=== PATIENT | male | born 1955 | race Caucasian/White ===

== ENCOUNTER → 2021-05-09 08:29 | Outpatient (BNVA) | payer MEDICARE, MEDICAID, SELFPAY | PROVIDERS: PCP Family Medicine; Visit Provider Nurse Practitioner Family | DX: G47.33 Obstructive sleep apnea (adult) (pediatric) (principal); F84.9 Pervasive developmental disorder, unspecified | CPT/HCPCS: Q3014 ==

== ENCOUNTER → 2021-10-03 20:58 | Outpatient (REF) | payer MEDICARE, MEDICAID, SELFPAY | LOC: HO.SL 20:58 | PROVIDERS: Visit Provider Nurse Practitioner Family | DX: G47.33 Obstructive sleep apnea (adult) (pediatric) (principal); F84.9 Pervasive developmental disorder, unspecified | CPT/HCPCS: 95811 ==

== ENCOUNTER → 2022-01-02 13:37 | Outpatient (BNVA) | payer MEDICARE, MEDICAID, SELFPAY | PROVIDERS: PCP Family Medicine; Visit Provider Nurse Practitioner Family | DX: G47.33 Obstructive sleep apnea (adult) (pediatric) (principal); Q03.1 Atresia of foramina of Magendie and Luschka; F84.9 Pervasive developmental disorder, unspecified; F09 Unspecified mental disorder due to known physiological condition | CPT/HCPCS: 99212 ==

== ENCOUNTER 2022-10-19 13:17 | Outpatient (AMB) | payer MEDICARE, MEDICAID, SELFPAY ==
--- NOTE | 2022-10-19 13:21 | MHC.OFFVIS ---
Intake Vital Signs 10/19/22 13:26 BP 100/80 Blood Pressure Location Rt brachial Position Sitting Intake Visit Reasons: 6m follow up - LVM Intake Note: Patient presents for 6 month follow up Patient states he saw Dr. ross to see if he was a candidate for surgery which they told him he's not Allergies No Known Allergies Allergy (Verified 10/19/22 13:24) HPI HPI Comments History of Present Illness Details 66-yr-old male presents for f/u visit, accompanied by his sister and nurse Elle. Pt denies any significant interval medical changes. Pt deneis any interval seizures, headaches, bothersome neck pain. Cognition stable- last brain MRI in 05/2021- stable dandy-walker variant, mild nonspecific T2/FLAIR white matter hyperintensities. He is working w/ his home PT and riding his stationary bike. He had sleep consult at [facility]- was informed he is not a candidate for [facility]. His CPAP settings were changed- ? to an APAP setting. Pt was given a new mask (which he used before, but is tolertaing better now that he shaved his mustache). He was advised to use a chin strap- which he started a few days ago. We are no longer connected to pt's Resmed airview and thus I cannot see full compliance report. Review of reeport provided by pt's nurse shows residual AHI 17/hr. He is using the machine more regularly. [facility] Medical History (Updated 10/19/22 @ 17:04 by ZOË Parsons) Cervical spinal stenosis CML (chronic myelocytic leukemia) Colon cancer Dandy Walker cyst Hearing loss Hyperlipidemia Intermittent explosive disorder Melanoma Myopia Polyneuropathy Seizure Severe obstructive sleep apnea Tension type headache Surgical History History of hydrocelectomy History of laparoscopic cholecystectomy Family History Father HTN (hypertension) Hyperlipidemia Mother Cancer Social History Alcohol intake: never Patient Tobacco Use Status: Never used Tobacco Review of Systems Const All systems reviewed & are unremarkable except as noted in HPI and below Physical Exam Vital Signs: Last Vital Signs BP 100/80 10/19/22 13:26 Const General: cooperative and no acute distress HEENT Head: Yes normocephalic Resp Effort & Inspection: normal respiratory effort and able to speak in complete sentences Neuro Other: A&O w/ cognitive impairment- pt answers appropriately, makes his needs/wishes known. Sitting upright in w/c. 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 Pt asks to continue care here. will recheck PAP compliance report in 2 weeks to check effect of current settings w/ mask and chin strap. If residual AHI still elevated- re-try BiPAP settings w/ mask and chin strap. Monitor cognition. Monitor seizures. Continue exercise program. Coding Level of Care Code Est Pt Level 3 (55204) Diagnoses Moderate obstructive sleep apnea G47.33 Seizure R56.9 Dandy Walker cyst Q03.1 Pervasive developmental disorder F84.9 Cognitive dysfunction F09
[2022-10-19 13:26] VITALS: BP 100/80
== END 2022-10-19 14:09 | disposition home or self-care (01) ==
PROVIDERS: Visit Provider Nurse Practitioner Family
DX: R56.9 Unspecified convulsions (principal); Q03.1 Atresia of foramina of Magendie and Luschka; F84.9 Pervasive developmental disorder, unspecified; R41.89 Other symptoms and signs involving cognitive functions and awareness; G47.33 Obstructive sleep apnea (adult) (pediatric)
CPT/HCPCS: 99213

== ENCOUNTER → 2022-10-19 13:17 | Outpatient (BNVA) | payer MEDICARE, MEDICAID, SELFPAY | PROVIDERS: Visit Provider Nurse Practitioner Family | DX: G47.33 Obstructive sleep apnea (adult) (pediatric) (principal); R56.9 Unspecified convulsions; F84.9 Pervasive developmental disorder, unspecified; F09 Unspecified mental disorder due to known physiological condition; Q03.1 Atresia of foramina of Magendie and Luschka | CPT/HCPCS: 99212 ==

== ENCOUNTER 2023-02-07 11:40 | Outpatient (AMB) | payer MEDICARE, MEDICAID, SELFPAY ==
--- NOTE | 2023-02-07 11:45 | MHC.OFFVIS ---
Intake Vital Signs 02/07/23 11:48 BP 108/70 Blood Pressure Location Rt brachial Position Sitting Pulse 77 Pulse Source Pulse Oximeter Pulse Oximetry (%) 100 Oxygen Delivery Method Room Air Intake Visit Reasons: 4m follow up- Confirmed Intake Note: Patient presents for 4 month follow up. Allergies No Known Allergies Allergy (Verified 02/07/23 11:48) HPI HPI Comments History of Present Illness Details 67-yr-old male presents for f/u visit, accompanied by his phaneuf hospital nurse, staff, and sister. Pt denies any significant interval medical changes. Pt reports he did have a fall in early Dec. He leaned over to pick something up from the floor causing him to fall off the toilet. He did hit his head so was brought to [facility] ER. Head and neck CT were non-acute per nurse. Pt was having some headcahes, and left forehead soreness, but states he is now feeling better. He states he is doing well overall. He is doing his exercises, working w/ PT. He is using his CPAP more regularly, however many nights he does not use it for > 4 hrs. Pt states that sometimes the mask leaks up into his eyes- although his staff is helping to ensure his mask seals correctly. Pt does admit that if he gets up to use the bathroom, he does not always let the staff help him put the CPAP back on. He is currently using the full face mask, but prefers the F30 style mask instead- he does have both. His machine is transmitting to his [employer] Airview kaylee- which shows residual AHI 14/hr. Unfortunately, his machine is not transmitting to our [employer] airview account. [facility] Medical History (Updated 10/19/22 @ 17:04 by ZOË Parsons) Severe obstructive sleep apnea Myopia Hearing loss Intermittent explosive disorder Colon cancer Hyperlipidemia Melanoma CML (chronic myelocytic leukemia) Dandy Walker cyst Tension type headache Cervical spinal stenosis Polyneuropathy Seizure Surgical History History of laparoscopic cholecystectomy History of hydrocelectomy Family History Father HTN (hypertension) Hyperlipidemia Mother Cancer Social History Alcohol intake: never Patient Tobacco Use Status: Never used Tobacco Review of Systems Const All systems reviewed & are unremarkable except as noted in HPI and below Physical Exam Vital Signs: Last Vital Signs Pulse 77 02/07/23 11:48 BP 108/70 02/07/23 11:48 Pulse Ox 100 02/07/23 11:48 Oxygen Delivery Method Room Air 02/07/23 11:48 Const General: cooperative and no acute distress Orientation/consciousness: patient oriented x3 Resp Effort & Inspection: normal respiratory effort and able to speak in complete sentences Neuro General: patient oriented x3 Psych Appearance: grossly normal Mental Status: mental status grossly normal Speech and movement: Normal speech and movement present Affect: normal affect Attitude: cooperative Assessment & Plan Assessment & Plan (1) Moderate obstructive sleep apnea: Comment: AHI 23/hr, REM AHI 48/hr, O2 jennifer 84% (in-lab PSG in 2018); AHI 62/hr and O2 jennifer 78% (in-lab split-night PSG 09/2021) Code(s): G47.33 - Obstructive sleep apnea (adult) (pediatric) (2) Seizure: Comment: (hypoxic brain injury, dandy walker cyst) Code(s): R56.9 - Unspecified convulsions (3) Pervasive developmental disorder: Code(s): F84.9 - Pervasive developmental disorder, unspecified Plan Will f/u w/ [facility] so that we can view pt's Resmed airview account. In the meantime, strategies advised to optimize PAP compliance: Use F30 mask Try a eye mask when using PAP When pt has to get up at night to use the BR, minimally disconnect his PAP tubing (and not the whole mask) to make it easier to reconnect the CPAP. Add Resmed Airview to pt's on tablet- may help motivate pt. May use Chin Strap. Will recheck PAP compliance report in 3 weeks to check compliance and residual AHI. If AHI is still elevated w/ improved compliance, consider retrying BiPAP settings (Auto BiPAP max IPAP 20, Min EPAP 5, pressure support 5) ? Monitor cognition. Monitor seizures. Continue exercise program. Coding Level of Care Code Est Pt Level 4 (07525) Diagnoses Moderate obstructive sleep apnea G47.33 Seizure R56.9 Pervasive developmental disorder F84.9
[2023-02-07 11:48] VITALS: BP 108/70; PULSE 77; O2SAT 100
== END 2023-02-07 12:39 | disposition home or self-care (01) ==
PROVIDERS: PCP Family Medicine; Visit Provider Nurse Practitioner Family
DX: G47.33 Obstructive sleep apnea (adult) (pediatric) (principal); R56.9 Unspecified convulsions; F84.9 Pervasive developmental disorder, unspecified
CPT/HCPCS: 99214

== ENCOUNTER → 2023-02-07 11:40 | Outpatient (BNVA) | payer MEDICARE, MEDICAID, SELFPAY | PROVIDERS: PCP Family Medicine; Visit Provider Nurse Practitioner Family | DX: G47.33 Obstructive sleep apnea (adult) (pediatric) (principal); R56.9 Unspecified convulsions; F84.9 Pervasive developmental disorder, unspecified | CPT/HCPCS: 99212 ==

== ENCOUNTER 2023-05-17 11:12 | Outpatient (AMB) | payer MEDICARE, MEDICAID, SELFPAY ==
--- NOTE | 2023-05-17 11:22 | MHC.OFFVIS ---
Intake Vital Signs 05/17/23 11:29 BP 108/72 Blood Pressure Location Rt brachial Position Sitting Pulse 80 Pulse Source Pulse Oximeter Pulse Oximetry (%) 98 Oxygen Delivery Method Room Air Intake Visit Reasons: 3 mo f/u-CONF Intake Note: Patient presents for 3 month follow up. Allergies No Known Allergies Allergy (Verified 05/17/23 11:28) HPI HPI Comments History of Present Illness Details 67-yr-old male presents for follow-up visit. Patient is accompanied by his long-term staff and sister. Pt denies any significant interval medical history changes. Patient continues to try to use his CPAP machine, however sometimes it is not very comfortable and he ends up taking it off before the end of the night. Staff is trying to help him to make sure that the mask is fitting correctly. His machine is still not connected to a [employer] air view account. However his sister is able to show me his residual AHI results on her phone, which do show significantly elevated AHI. Patient denies any interval seizure activity. Patient is overall doing well in his long-term. He is continuing to do some exercises with his physical therapist. [facility] Medical History (Updated 10/19/22 @ 17:04 by ZOË Parsons) Severe obstructive sleep apnea Myopia Hearing loss Intermittent explosive disorder Colon cancer Hyperlipidemia Melanoma CML (chronic myelocytic leukemia) Dandy Walker cyst Tension type headache Cervical spinal stenosis Polyneuropathy Seizure Surgical History History of laparoscopic cholecystectomy History of hydrocelectomy Family History Father HTN (hypertension) Hyperlipidemia Mother Cancer Social History Alcohol intake: never Patient Tobacco Use Status: Never used Tobacco Review of Systems Const All systems reviewed & are unremarkable except as noted in HPI and below Physical Exam Vital Signs: Last Vital Signs Pulse 80 05/17/23 11:29 BP 108/72 05/17/23 11:29 Pulse Ox 98 05/17/23 11:29 Oxygen Delivery Method Room Air 05/17/23 11:29 Const General: no acute distress HEENT Head: Yes normocephalic Resp Effort & Inspection: normal respiratory effort and able to speak in complete sentences Auscultation: clear to auscultation bilaterally Neuro Other: Alert and oriented with cognitive delay. Patient is able to follow the conversation and answer appropriately as long as questions are raised in the simple manner Sitting upright in wheelchair. 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 Will f/u w/ [facility] so that we can view pt's Resmed airview account. In the meantime, strategies advised to optimize PAP compliance: Use F30 mask Eye mask when using PAP When pt has to get up at night to use the BR, minimally disconnect his PAP tubing (and not the whole mask) to make it easier to reconnect the CPAP. May use Chin Strap. If AHI is still elevated w/ improved compliance, consider retrying BiPAP settings (Auto BiPAP max IPAP 20, Min EPAP 5, pressure support 5) ? Monitor cognition. Monitor seizures. Continue exercise program. Addendum: Patient's current CPAP machine appears to be connected to our records and ARB 0 count, however there is no recent data after November 2022. [facility], to determine why the machine is not currently transmitting data. If residual AHI remains elevated, we will switch to auto BiPAP as above. Coding Level of Care Code Est Pt Level 3 (25452) Diagnoses Moderate obstructive sleep apnea G47.33 Dandy Walker cyst Q03.1 Pervasive developmental disorder F84.9 Seizure R56.9
[2023-05-17 11:29] VITALS: BP 108/72; PULSE 80; O2SAT 98
== END 2023-05-17 12:24 | disposition home or self-care (01) ==
PROVIDERS: PCP Family Medicine; Visit Provider Nurse Practitioner Family
DX: G47.33 Obstructive sleep apnea (adult) (pediatric) (principal); Q03.1 Atresia of foramina of Magendie and Luschka; F84.9 Pervasive developmental disorder, unspecified; R56.9 Unspecified convulsions
CPT/HCPCS: 99213

== ENCOUNTER → 2023-05-17 11:12 | Outpatient (BNVA) | payer MEDICARE, MEDICAID, SELFPAY | PROVIDERS: PCP Family Medicine; Visit Provider Nurse Practitioner Family | DX: G47.33 Obstructive sleep apnea (adult) (pediatric) (principal); Q03.1 Atresia of foramina of Magendie and Luschka; F84.9 Pervasive developmental disorder, unspecified; R56.9 Unspecified convulsions; Z99.89 Dependence on other enabling machines and devices | CPT/HCPCS: 99212 ==

== ENCOUNTER 2023-11-19 09:15 | Outpatient (AMB) | payer MEDICARE, MEDICAID, SELFPAY ==
--- NOTE | 2023-11-19 09:28 | A.OFFVIS_ITS ---
Vital Signs 11/19/23 09:33 Weight 146 lb BP 114/74 Blood Pressure Location Rt brachial Position Sitting Pulse 82 Pulse Source Pulse Oximeter Pulse Oximetry (%) 100 Oxygen Delivery Method Room Air Intake Visit Reasons: Follow up Intake Note: Patient presents for follow up. Allergies No Known Allergies Allergy (Verified 11/19/23 09:34) HPI Comments Details: 67-yr-old male presents for follow-up visit. Patient is accompanied by his snf staff and sister. Pt denies any significant interval medical history changes. Since the last visit, I initaited an order for Auto BiPAP max IPAP 20, Min EPAP 5, pressure support 5, as he continued to have elevated residual AHI on APAP. Patient continues to use his PAP machine, however he still feels he is not tolerating the mask, the air is still leaking into his eyes. He would like to try a full face mask- possibly one that covers his whole face. Note- pt's [employer] Gill shows recent use but I cannot see what presusre setting pt is using. Our [employer] portal access does not show use since May. However, the serial numbers on my portal account and pt's Apps do match. Patient denies any interval seizure activity. Patient's states his mood is stable. Patient does sometimes get stuck when saying a word. Patient is overall doing well in his snf. He is continuing to do exercises with his physical therapist- using his cycle and tricycle and going to [employer] w/ his snf staff. [facility] Medical History (Updated 11/19/23 @ 12:49 by ZOË Parsons) Severe obstructive sleep apnea Moderate obstructive sleep apnea Myopia Hearing loss Intermittent explosive disorder Colon cancer Hyperlipidemia Melanoma CML (chronic myelocytic leukemia) Dandy Walker cyst Tension type headache Cervical spinal stenosis Polyneuropathy Seizure Surgical History History of laparoscopic cholecystectomy History of hydrocelectomy Family History Father HTN (hypertension) Hyperlipidemia Mother Cancer Social History Alcohol intake: never Patient Tobacco Use Status: Never used Tobacco Physical Exam Vital Signs: Last Vital Signs Pulse 82 11/19/23 09:33 BP 114/74 11/19/23 09:33 Pulse Ox 100 11/19/23 09:33 Oxygen Delivery Method Room Air 11/19/23 09:33 Const General: cooperative and no acute distress Resp Effort & Inspection: normal respiratory effort and able to speak in complete sentences Neuro Other: Alert and oriented with cognitive delay. Patient is able to follow the conversation and answer appropriately. Miold baseline dysarthria Sitting upright in wheelchair. 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 ? Will f/u w/ [facility] to ensure pt is currently using Auto BiPAP max IPAP 20, Min EPAP 5, pressure support 5 and reconnect current device to our [employer] account. Upon confirmation, consider decreasing IPAP setting in hopes this reduces risks for mask leakage. In the meantime, strategies advised to optimize PAP compliance: Continue to try to use F30 mask for now Eye mask when using PAP When pt has to get up at night to use the BR, minimally disconnect his PAP tubing (and not the whole mask) to make it easier to reconnect the CPAP. May use Chin Strap. Monitor cognition. Monitor seizures. Continue exercise program. Pt to follow-up in 6 months or sooner prn. ? Coding Level of Care Code Est Pt Level 4 (50057) Diagnoses Pervasive developmental disorder F84.9 Dandy Walker cyst Q03.1 Severe obstructive sleep apnea G47.33 Seizure R56.9
[2023-11-19 09:33] VITALS: BP 114/74; PULSE 82; O2SAT 100
== END 2023-11-19 10:25 | disposition home or self-care (01) ==
PROVIDERS: PCP Family Medicine; Visit Provider Nurse Practitioner Family
DX: F84.9 Pervasive developmental disorder, unspecified (principal); Q03.1 Atresia of foramina of Magendie and Luschka; G47.33 Obstructive sleep apnea (adult) (pediatric); R56.9 Unspecified convulsions
CPT/HCPCS: 99214

== ENCOUNTER → 2023-11-19 09:15 | Outpatient (BNVA) | payer MEDICARE, MEDICAID, SELFPAY | PROVIDERS: PCP Family Medicine; Visit Provider Nurse Practitioner Family | DX: F84.9 Pervasive developmental disorder, unspecified (principal); Q03.1 Atresia of foramina of Magendie and Luschka; R56.9 Unspecified convulsions; G47.33 Obstructive sleep apnea (adult) (pediatric) | CPT/HCPCS: 99212 ==

== ENCOUNTER 2024-05-26 09:05 | Outpatient (AMB) | payer MEDICARE, MEDICAID, SELFPAY ==
--- NOTE | 2024-05-26 09:11 | MHC.OFFVIS ---
Vital Signs 05/26/24 09:14 BP 108/72 Blood Pressure Location Rt brachial Position Sitting Pulse 82 Pulse Source Pulse Oximeter Pulse Oximetry (%) 99 Oxygen Delivery Method Room Air Intake Visit Reasons: Follow up + Seizure protocol Form Intake Note: Patient presents follow up GINA. No compliance(last compliance 12/18/23) Allergies No Known Allergies Allergy (Verified 05/26/24 09:13) HPI Comments Details: 68-yr-old male presents for follow-up visit. Patient is accompanied by his detention staff and sister. Pt denies any significant interval medical history changes. Since the last visit, I initiated an order for Auto BiPAP max IPAP 20, Min EPAP 5, pressure support 5, as he continued to have elevated residual AHI on APAP. [facility] has adjusted patient's ResMed you account to his auto BiPAP machine, however patient's personal ResMed Gill is attached to the CPAP machine. However, patient had not started using the auto BiPAP yet. Patient is continuing to have elevated residual AHIs and not tolerating his current PAP settings/mask well. Patient denies any interval seizure activity. Patient's states his mood is stable. Patient is overall doing well in his detention. He is continuing to do exercises with his physical therapist- using stationary bike or tricycle and going to [employer] w/ his detention staff. Patient's sister notes that there are other sister, was recently diagnosed with dementia. [facility] Medical History Severe obstructive sleep apnea Moderate obstructive sleep apnea Myopia Hearing loss Intermittent explosive disorder Colon cancer Hyperlipidemia Melanoma CML (chronic myelocytic leukemia) Dandy Walker cyst Tension type headache Cervical spinal stenosis Polyneuropathy Seizure Surgical History History of laparoscopic cholecystectomy History of hydrocelectomy Family History Father HTN (hypertension) Hyperlipidemia Mother Cancer Social History Alcohol intake: never Patient Tobacco Use Status: Never used Tobacco Physical Exam Vital Signs: Last Vital Signs Pulse 82 05/26/24 09:14 BP 108/72 05/26/24 09:14 Pulse Ox 99 05/26/24 09:14 Oxygen Delivery Method Room Air 05/26/24 09:14 Const General: cooperative and no acute distress Resp Effort & Inspection: normal respiratory effort and able to speak in complete sentences Neuro Other: Alert and oriented with cognitive delay. Patient is able to follow the conversation and answer appropriately. Mild baseline dysarthria Sitting upright in wheelchair. 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 ? Start Auto BiPAP max IPAP 20, Min EPAP 5, pressure support 5 and reconnect current device to our [employer] airview account. Upon confirmation, consider decreasing IPAP setting in hopes this reduces risks for mask leakage. During the visit today, staff adjusted the patient's personal [employer] air view Gill to the auto BiPAP machine In the meantime, strategies advised to optimize PAP compliance: Continue to try to use F30 mask for now Eye mask when using PAP When pt has to get up at night to use the BR, minimally disconnect his PAP tubing (and not the whole mask) to make it easier to reconnect the CPAP. May use Chin Strap. Monitor cognition. Monitor seizures. Continue exercise program. Pt to follow-up in 6 months or sooner prn. ? Coding Level of Care Code Est Pt Level 3 (83596) Diagnoses Pervasive developmental disorder F84.9 Dandy Walker cyst Q03.1 Severe obstructive sleep apnea G47.33 Seizure R56.9
[2024-05-26 09:14] VITALS: BP 108/72; PULSE 82; O2SAT 99
--- OUTSIDE RECORDS SUMMARY | 2024-05-26 09:55 | XMS_ITS | Data Portability ---
Author Organization [place] - [facility], Allergy Address [address] [address] Assessment Encounter Date Assessment Date Assessment LastModified by Organization Details LastModified Time 09/03/2023 09/03/2023 67 year old male presents today with his personal care attendant for cerumen removal. He has been having trouble with discomfort related to right sided hearing aid use. Impacted cerumen was debrided bilaterally today. His ear exam is otherwise normal. I see no cause for the ear discomfort with hearing aid use. Recommend trying hydorcortisone cream to the right outer ear to see if this helps with the irritation. Follow up in three months for his ear cleaning. [email or web address] Not available 09/03/2023 10:51:38 03/17/2024 03/17/2024 68 year old male presents from prison with one of the workers for routine ear cleaning. Ears were meticulously cleaned bilaterally today with fine pics and suction. Patient is encouraged to avoid Q-tips in his ears relative to packing the wax in tighter. He will follow up in 6 months for ear cleaning. [email or web address] Not available 03/17/2024 16:35:01 Plan of Treatment Reminders Order Date Submit Date Provider Last Modified By Organization Details Last Modified Time Details Appointments Establish ed 15 2024 10:15A M TANG PAREDES PA-C Not available Not available Not available Lab None recorded. Referral None recorded. Procedures None recorded. Surgeries None recorded. Imaging None recorded. Medication Orders hydrocort isone 1 % topical cream 2023 024 [facility], [address] [place] [address], [id number], 09/03/2023 10:50:38 Patient TargetsNo targets recorded. Patient InstructionsNo instructions recorded. Reason for Referral None Reported. Results Created Date Observation Date Name Description Value Unit Range Abnormal Flag Note LastModifiedBy Organization Detail LastModifiedTime 10/16/19 24 08/09/2021 imagi ng/di marbinos tic resul t No observ ation record ed. [email or web address] Not Available 03:31:52 10/16/19 24 08/09/2021 audio gram No observ ation record ed. [email or web address] Not Available 03:32:31 Result Notes None recorded. Problems Name Problem SNOMED Code Status Onset Date Resolution Date Notes Provider Name and Address Organization Details Recorded Time Posterior rhinorrhe a 39944496 Active 2016 Postnasal drip; Note: Date Diagnosed : 08/15/2016 10:40 AM (R09.82) Not Available [facility] 4 03:15:55 Mixed conductiv e and sensorine ural hearing loss, bilateral 848578401 Active 2021 Mixed conductiv e and sensorine ural hearing loss, bilateral ; Note: Date Diagnosed : 08/09/2021 8:56 AM (H90.6) Not Available [facility] 4 03:15:55 Sensorine ural hearing loss of bilateral ears 434680653 Active 2014 Sensorine ural hearing loss bilateral ly; CMS Risk: low risk CMS Treatment : establish ed problem (to examiner) : stable or improved Note: Date Diagnosed : 4 2:41 PM (389.18) ; Start Date : 4 Sensori neural hearing loss, bilateral ; Note: Date Diagnosed : 10/06/2014 12:40 PM (H90.3) [mapped from ICD9 code: 389.18] Not Available [facility] 4 03:15:54 Dizziness and giddiness 862758359 Active 2015 Dizziness and giddiness ; Note: Date Diagnosed : 6 4:36 PM (R42) Not Available [facility] 4 03:15:55 Impacted cerumen 26770646 Active 2014 Impacted cerumen; CMS Risk: low risk Cond ition: uncontrol led Note: Date Diagnosed : 4 2:41 PM (380.4) Impacte d cerumen; Location: bilateral CMS Risk: low risk Cond ition: uncontrol led Impa cted cerumen; Location: bilateral CMS Treatment : establish ed problem (to examiner) : stable or improved ; Start Date : 5 Impacte d cerumen; CMS Treatment : establish ed problem (to examiner) : stable or improved Note: Date Diagnosed : 4 2:41 PM (380.4) ; Start Date : 5 Impacte d cerumen; Location: bilateral CMS Risk: low risk CMS Treatment : establish ed problem (to examiner) : stable or improved ; Start Date : 4 Impacte d cerumen; CMS Risk: low risk CMS Treatment : establish ed problem (to examiner) : stable or improved Note: Date Diagnosed : 4 2:41 PM (380.4) ; Start Date : 4 Impacte d cerumen, unspecifi ed ear; Note: Date Diagnosed : 10/06/2014 12:40 PM (H61.20) [mapped from ICD9 code: 380.4] Not Available [facility] 4 03:15:54 Allergic rhinitis 25222811 Active 2016 Allergic rhinitis, unspecifi ed; Note: Date Diagnosed : 08/15/2016 10:40 AM (J30.9) Not Available [facility] 4 03:15:55 Impacted cerumen of bilateral ears 26228632150 93376 Active 2020 Impacted cerumen, bilateral ; Note: Date Diagnosed : 1 10:29 AM (H61.23) Impacte d cerumen, bilateral ; Note: Date Diagnosed : 07/06/2020 11:41 AM (H61.23) ; Start Date : 1 Impacte d cerumen, bilateral ; Note: Date Diagnosed : 0 11:17 AM (H61.23) ; Start Date : 0 Impacte d cerumen, bilateral ; Note: Date Diagnosed : 0 6:20 PM (H61.23) ; Start Date : 0 Impacte d cerumen, bilateral ; Note: Date Diagnosed : 11/09/2015 11:29 AM (H61.23) ; Start Date : 6 Not Available [facility] 4 03:15:54 Otalgia of right ear 4799595472 Active 2023 YADI ZIMMER PA-C [address] [facility] [address], [place], [address] , [facility] 4 10:49:52 Problem Notes None recorded. Procedures Surgical History Date Name Laterality Status Provider Name and Address Organization Details Recorded Time 5 Cerumen removal without microscope bilat completed TANG PAREDES PA-C [facility] [address], [place], [address], [facility] 03/17/2024 16:34:37 Imaging Results Imaging Date Name Status LastModified by [facility] Details LastModified Time 08/09/2021 imaging/diagno stic result completed [email or web address] Information not available 10/16/2023 03:31:52 08/09/2021 audiogram completed [email or web address] Information not available 10/16/2023 03:32:31 Procedure Notes None recorded. Medical Equipment None Reported. Medications Name Sig Start Date Stop Date Status Note LastModified by Organization Details LastModified Time melatonin 3 mg tabs active Not Available Not Available No t Available biotene mouthwash active Not Available Not Available No t Available vitamin d3 25 mcg (1000 ut) active Not Available Not Available No t Available multivita min tablet 2014 active Medicati on ID: [id number] Br and Name: multivit middleton Sen d Method: E-Prescr ibed Sub s Allowed: subs OK Medic ationGen ericName : multivit middleton Not Available Not Available Not Available amoxicill in 500 mg capsule active Not Available Not Available Not Available acetamino phen 325 mg tablet active Not Available Not Available No t Available Vitamin C 500 mg tablet 2013 active Medicati on ID: [id number] Du ration Value: 30 Brand Name: Vitamin C Send Method: E-Prescr ibed Sub s Allowed: subs OK Medic ationGen ericName : Vitamin C Not Available Not Available Not Available cetirizin e 10 mg tablet active Not Available Not Available Not Available oxybutyni n chloride ER 10 mg tablet,ex tended release 24 hr 08/09 completed Medicati on ID: [id number] Du ration Value: 30 Brand Name: oxybutyn in chloride Send Method: E-Prescr ibed Sub s Allowed: subs OK Medic ationGen ericName : oxybutyn in chloride Not Available Not Available Not Available Claritin 10 mg tablet 1 tablet by mouth 2016 active Medicati on ID: [id number] D uration Value: 30 Prescri bed By Name: Shiva Davenport M.D. Bra nd Name: Claritin Send Method: E-Prescr ibed Sub s Allowed: subs OK Medic ationGen ericName : Claritin Not Available Not Available Not Available sucralfat e 1 gram tablet active Not Available Not Available Not Available ondansetr on HCl 4 mg tablet active Not Available Not Available No t Available Milk of Magnesia 400 mg/5 mL oral suspensio n active Not Available Not Available Not Available bacitraci n zinc 500 unit/gram topical ointment active Not Available Not Available Not Available aspirin 81 mg tablet,de layed release 2013 [place] Medicati [place] ID: [id number] Du ration Value: 30 Brand Name: aspirin Send Method: E-Prescr ibed Sub s Allowed: subs OK Medic ationGen ericName : aspirin Not Available Not Available Not Available pantopraz ole 20 mg tablet,de layed release active Not Available Not Available Not Available Thera 400 mcg tablet active Not Available Not Available Not Available cefadroxi l 500 mg capsule active Not Available Not Available Not Available Vitamin D3 10 mcg (400 unit) tablet 02/07 completed Medicati on ID: [id number] Du ration Value: 30 Brand Name: Vitamin D3 Send Method: E-Prescr ibed Sub s Allowed: subs OK Medic ationGen ericName : Vitamin D3 Not Available Not Available Not Available hydrocort isone 1 % topical cream apply a small amount to right outer ear as needed for discomfo rt. do not use daily for longer than 2 weeks. active Not Available Not Available No t Available cephalexi n 500 mg capsule 10/06 [place] ID: [id number] Du ration Value: 10 Brand Name: cephalex in Send Method: E-Prescr ibed Sub s Allowed: subs OK Medic ationGen ericName : cephalex in Not Available Not Available Not Available oseltamiv ir 75 mg capsule TAKE 1 CAPSULE BY MOUTH DAILY FOR 7 DAYS active Not Available Not Available No t Available divalproe x ER 500 mg tablet,ex tended release 24 hr 10/06 completed Medicati [place] ID: [id number] Du ration Value: 30 Brand Name: divalpro ex Send Method: E-Prescr ibed Sub s Allowed: subs OK Medic ationGen ericName : divalpro ex Not Available Not Available Not Available omeprazol e 20 mg capsule,d elayed release 08/09 completed Medicati on ID: [id number] Du ration Value: 30 Brand Name: omeprazo le Send Method: E-Prescr ibed Sub s Allowed: subs OK Medic ationGen ericName : omeprazo le Not Available Not Available Not Available hydrocort isone 2.5 % topical cream active Not Available Not Available Not Available ketoconaz ole 2 % topical cream active Not Available Not Available Not Available fluoxetin e 20 mg capsule active Not Available Not Available Not Available fluticaso ne propionat e 50 mcg/actua tion nasal spray,dewayne pension active Not Available Not Available Not Available coenzyme Q10 30 mg capsule 08/09 completed Medicati on ID: 28323 Du ration Value: 30 Brand Name: coenzyme Q10 Send Method: E-Prescr ibed Sub s Allowed: subs OK Medic ationGen ericName : coenzyme Q10 Not Available Not Available Not Available Stomach Relief 262 mg/15 mL oral suspensio n active Not Available Not Available Not Available Depakote ER 250 mg tablet,ex tended release 08/09 completed Medicati on ID: [id number] Br and Name: Depakote ER Send Method: E-Prescr ibed Sub s Allowed: subs OK Medic ationGen ericName : Depakote ER Not Available Not Available Not Available imatinib 100 mg tablet active Not Available Not Available Not Available Gleevec 400 mg tablet 02/07 completed Medicati on ID: 89148 Du ration Value: 30 Brand Name: Gleevec Send Method: E-Prescr ibed Sub s Allowed: subs OK Medic ationGen ericName : Gleevec Not Available Not Available Not Available cholestyr amine (with sugar) 4 gram powder for susp in a packet active Not Available Not Available Not Available Biotene mouthwash 02/07 completed Medicati on ID: [id number] Du ration Value: 30 Brand Name: BIOTENE MOUTHWAS H Send Method: E-Prescr ibed Sub s Allowed: subs OK Medic ationGen ericName : BIOTENE MOUTHWAS H Not Available Not Available Not Available Fish Oil 340 mg-1,000 mg capsule 2013 active Medicati on ID: [id number] Du ration Value: 30 Brand Name: Fish Oil Send Method: E-Prescr ibed Sub s Allowed: subs OK Medic ationGen ericName : Fish Oil Not Available Not Available Not Available ferrous gluconate 324 mg (38 mg iron) tablet active Not Available Not Available Not Available Athlete's Foot (clotrima zole) 1 % topical cream active Not Available Not Available Not Available Biotene Oralbalan ce (bioactiv e enzymes) oral mucosal liquid 02/07 completed Medicati on ID: 52475 Du ration Value: 30 Brand Name: Biotene Oralbala nce Send Method: E-Prescr ibed Sub s Allowed: subs OK Medic ationGen ericName : Biotene Oralbala nce Not Available Not Available Not Available Fiber Therapy (methylce llulose-s ugar) 2 gram/19 gram oral powder active Not Available Not Available Not Available Adult Tussin Chest Congestio n 100 mg/5 mL oral liquid 07/06 completed Medicati on ID: 12243 Du ration Value: 3 Brand Name: Adult Tussin Chest Congesti on Send Method: E-Prescr ibed Sub s Allowed: subs OK Medic ationGen ericName : Adult Tussin Chest Congesti on Not Available Not Available Not Available Stimulant Laxative Plus 8.6 mg-50 mg tablet active Not Available Not Available Not Available Calcium Magnesium 500 mg calcium-2 50 mg tablet 2013 active Medicati on ID: 47243 Du ration Value: 30 Brand Name: Calcium Magnesiu m Send Method: E-Prescr ibed Sub s Allowed: subs OK Medic ationGen ericName : Calcium Magnesiu m Not Available Not Available Not Available Sodium Fluoride 5000 Plus 1.1 % dental cream active Not Available Not Available Not Available Profola 20 mg iron-1,67 0 mcg DFE tablet active Not Available Not Available Not Available Vitals Date Recorded Body height Body mass index (BMI) Body weight Provider Name and Address Organization Details Last Updated DateTime 09/03/2023 167.64 cm 23.2 kg/m2 84617.3 g Oanh Rinaldi [facility] 09/03/2023 10:21:53 Date Recorded Body height Body mass index (BMI) Body weight Provider Name and Address Organization Details Last Updated DateTime 03/17/2024 167.64 cm 23.2 kg/m2 48500.3 g Niesha Roque [facility] 03/17/2024 14:46:20 Social History None recorded. Functional Status None recorded. Mental Status None recorded. Family History Nothing Reported. Medical History No medical history recorded. Past Encounters Encounter ID Performer Location Encounter Start Date Encounter Closed Date Diagnosis/Indication Diagnosis SNOMED-CT Code Diagnosis ICD10 Code Diagnosis Note [id number] IZABELLA ZAMARRIPA MD [facility] [address] [place] [phone] 09/03/2023 10:06:43 09/03/2023 10:45:24 Impacted cerumen of bilateral ears 1808065079 251716 H61.23 Otalgia of right ear 688 5140076 H92.01 [id number] IZABELLA ZAMARRIPA MD [facility] [address] [place] [phone] 03/17/2024 14:44:38 03/17/2024 14:59:09 Impacted cerumen of bilateral ears 2700140960 467443 H61.23 Health Concerns Section Related Observation LastModified by Organization Detai ls LastModified Time None Recorded Concern Status LastModified by Organization Details LastModified Time None Recorded Advance Directives Directive None Recorded Payers Encounter Date Sequence Insurance Name Policy Number Policy Echeverria Covered Member ID Echeverria Member ID Guarantor Name 09/03/2023 1 [place]ARE [place] [facility] Wolfgang De La Cruzs [id number] Wolfgang Canobrants 09/03/2023 2 MEDICAID-[place] [facility] Wolfgang Mensahnts [id number] Wolfgang Mensahnts 03/17/2024 1 [place] [facility] Wolfgang Mensahnts [id number] Wolfgang Canobrants 03/17/2024 2 [place]ICAID[place] [facility] Wolfgang Mensahnts [id number] Wolfgang De La Cruzs Notes Date Note Type Note Provider Name and Address Organization Details Recorded Time 09/03/2023 text/html 67 year old male presents today with his personal care attendant for cerumen removal.He has been having trouble with discomfort related to right sided hearing aid use. He has been seen several times at [facility] and had many adjustments made with little improvement. IZABELLA ZAMARRIPA MD [address] [place] [address], [phone], [place] - [facility] 09/03/2023 13:50:32 03/17/2024 text/html 68 year old male presents from prison with one of the workers for routine ear cleaning. No acute concerns. IZABELLA ZAMARRIPA MD [address] [place] [address], [phone], [place] - [facility] 03/18/2024 10:17:20
== END 2024-05-26 10:04 | disposition home or self-care (01) ==
LOC: HO.HSMS 09:05
PROVIDERS: PCP Family Medicine; Visit Provider Nurse Practitioner Family
DX: F84.9 Pervasive developmental disorder, unspecified (principal); Q03.1 Atresia of foramina of Magendie and Luschka; G47.33 Obstructive sleep apnea (adult) (pediatric); R56.9 Unspecified convulsions
CPT/HCPCS: 99213

== ENCOUNTER → 2024-05-26 09:05 | Outpatient (BNVA) | payer MEDICARE, MEDICAID, SELFPAY | PROVIDERS: PCP Family Medicine; Visit Provider Nurse Practitioner Family | DX: Q03.1 Atresia of foramina of Magendie and Luschka (principal); F84.9 Pervasive developmental disorder, unspecified; G47.33 Obstructive sleep apnea (adult) (pediatric); R56.9 Unspecified convulsions | CPT/HCPCS: 99212 ==

== ENCOUNTER → 2024-07-21 20:30 | Outpatient (REF) | payer MEDICARE, MEDICAID, SELFPAY | LOC: HO.SL 20:30 | PROVIDERS: PCP Family Medicine; Visit Provider Nurse Practitioner Family | DX: G47.33 Obstructive sleep apnea (adult) (pediatric) (principal); F84.9 Pervasive developmental disorder, unspecified; G93.1 Anoxic brain damage, not elsewhere classified | CPT/HCPCS: 95811 ==

== ENCOUNTER → 2024-07-21 20:30 | Outpatient (BNV) | payer MEDICARE, MEDICAID, SELFPAY | PROVIDERS: PCP Family Medicine; Visit Provider Psychiatry & Neurology Neurology | DX: R06.83 Snoring (principal) | CPT/HCPCS: 95810 ==

== ENCOUNTER → 2024-07-28 13:12 | Outpatient (REF) | payer MEDICARE, MEDICAID, SELFPAY ==
--- OUTSIDE RECORDS SUMMARY | 2024-07-28 14:44 | XMS_ITS | Data Portability ---
Author Organization [facility], [facility] Address [address] [place] [address] Care Team Providers Care Cloth Colors Examiner Name Role Phone WILLIAM PEREZ Primary Care Provider TEN GARRETT [employer] Product Consultant Assessment Encounter Date Assessment Date Assessment LastModified by Organization Details LastModified Time 09/09/2023 09/09/2023 Peripheral vascular disease, dystrophic toenails jerskine Not available 09/09/2023 11:10:01 11/25/2023 11/25/2023 Peripheral vascular disease, dystrophic toenails jerskine Not available 11/25/2023 15:37:41 02/10/2024 02/10/2024 Peripheral vascular disease, dystrophic toenails jerskine Not available 02/10/2024 12:03:02 04/24/2024 04/24/2024 Peripheral vascular disease, dystrophic toenails jerskine Not available 04/24/2024 12:15:34 07/10/2024 07/10/2024 Peripheral vascular disease, dystrophic toenails jerskine Not available 07/10/2024 11:29:38 Plan of Treatment Reminders Order Date Submit Date Provider Last Modified By Organization Details Last Modified Time Details Appointments Routine Foot Care 2024 09:00A M Ten Garrett DPM Not available Not available Not available Colonosc opy, 15 2024 11:30A M Alex Manzano MD Not available Not available Not available Lab None recorded . Referral None recorded . Procedures None recorded . Surgeries None recorded . Imaging None recorded . Medication Orders None recorded . Patient TargetsNo targets recorded. Patient Instructions Encounter Date Encounter Id Patient Instructions Last Modified By Organization Details Last Modified Time 09/09/2023 [id number] Patient to retur n in 9 weeks for foot care to reduce risk of complications associated with peripheral vascular disease. jerskine Not available 09/09/2023 11:10:01 11/25/2023 [id number] Patient to retur n in 9 weeks for foot care to reduce risk of complications associated with peripheral vascular disease and peripheral neuropathy. jerskine Not available 11/25/2023 15:39:37 02/10/2024 [id number] Patient to retur n in 9 weeks for foot care to reduce risk of complications associated with peripheral vascular disease and peripheral neuropathy. jerskine Not available 02/10/2024 12:03:02 04/24/2024 [id number] Patient to retur n in 9 weeks for foot care to reduce risk of complications associated with peripheral vascular disease and peripheral neuropathy. jerskine Not available 04/24/2024 12:15:34 07/10/2024 [id number] Patient to retur n in 9 weeks for foot care to reduce risk of complications associated with peripheral vascular disease and peripheral neuropathy. jerskine Not available 07/10/2024 11:29:38 Reason for Referral None Reported. Problems Name Problem SNOMED Code Status Onset Date Resolution Date Notes Provider Name and Address Organization Details Recorded Time Primary malignant neoplasm of sigmoid colon 84157123 Active 009 Not Available [facility] 3 03:11:58 Injury of knee 151111773 Active 003 Not Available [facility] 3 03:11:58 Problem Notes None recorded. Procedures Surgical History Date Name Laterality Status Provider Name and Address Organization Details Recorded Time 04/07/2008 completed Not Available [facility] 01/11/2011 06:05:52 04/07/2008 completed Not Available [facility] 01/11/2011 06:05:52 Imaging Results None recorded. Procedure Notes None recorded. Medical Equipment None Reported. Allergies Allergen ID Allergen Name Allergen Category Reaction Reaction Severity Criticality Documentation Date Start Date Code Code System Note Provider Name and Address Organization Details Recorded Time 164788 Product containin g 5-hydroxy tryptamin e-3-automotive professional tor antagonis t (product) medicatio n Not available Not available Not available 06/08/2020 65308 7002 SNOMED Wendi Kolb [facility] [place] [facility] 12:30:46 Medications Name Sig Start Date Stop Date Status Note LastModified by Organization Details LastModified Time melatonin 3 mg tabs active Not Available Not Available No t Available biotene mouthwash active Not Available Not Available No t Available vitamin d3 25 mcg (1000 ut) active Not Available Not Available No t Available amoxicill in 500 mg capsule active Not Available Not Available Not Available cholestyr amine (bulk) powder 9 mg packet every evening 06/29 completed Not Available Not Available Not Available Tinactin 1 % topical aerosol active PRN daily Not Available Not Available Not Available acetamino phen 325 mg tablet active Not Available Not Available No t Available cetirizin e 10 mg tablet active Not Available Not Available Not Available sucralfat e 1 gram tablet Take 1 tablet twice a day by oral route. active Not Available Not Available No t Available ondansetr on HCl 4 mg tablet active Not Available Not Available No t Available Milk of Magnesia 400 mg/5 mL oral suspensio n Take 30 mL every day by oral route. active Not Available Not Available No t Available bacitraci n zinc 500 unit/gram topical ointment active Not Available Not Available Not Available pantopraz ole 20 mg tablet,de layed release Take 1 tablet every day by oral route. active Not Available Not Available No t Available Thera 400 mcg tablet active Not Available Not Available Not Available cefadroxi l 500 mg capsule 06/06 completed Not Available Not Available Not Available hydrocort isone 1 % topical cream active Not Available Not Available Not Available oseltamiv ir 75 mg capsule TAKE 1 CAPSULE BY MOUTH DAILY FOR 7 DAYS 04/24 completed Not Available Not Available Not Available fluoxetin e 20 mg tablet Take 1 tablet every day by oral route. 06/29 completed Not Available Not Available Not Available omeprazol e 20 mg capsule,d elayed release 06/06 completed Not Available Not Available Not Available hydrocort isone 2.5 % topical cream 11/24 completed Not Available Not Available Not Available bisacodyl 5 mg tablet,de layed release 06/06 completed Not Available Not Available Not Available polyethyl halle glycol 3350 17 gram/dose oral powder active Not Available Not Available Not Available ketoconaz ole 2 % topical cream active Not Available Not Available Not Available ondansetr on 4 mg disintegr ating tablet Place 1 tablet every 6 hours by translin gual route. 09/01 completed PRN Not Available Not Available Not Available fluoxetin e 20 mg capsule active Not Available Not Available Not Available fluticaso ne propionat e 50 mcg/actua tion nasal spray,dewayne pension Caroline 2 sprays every day by intranas al route. active Not Available Not Available No t Available loratadin e 10 mg tablet active Not Available Not Available Not Available Stomach Relief 262 mg/15 mL oral suspensio n active Not Available Not Available Not Available imatinib 100 mg tablet Take 2 tablets every day by oral route. active Not Available Not Available No t Available Tylenol 8 Hour 650 mg tablet,ex tended release Take 2 tablets every 4 hours by oral route. active PRN Not Available Not Available No t Available cholestyr amine (with sugar) 4 gram powder for susp in a packet active Not Available Not Available Not Available Prilosec OTC 20 mg tablet,de layed release Take 20 mg twice a day by oral route. 06/08 completed Changed to protonix Not Available Not Available Not Available Calcium/M agnesium Formula active Not Available Not Available Not Available Vitamin D3 1000 IU QD 09/01 completed Not Available Not Available Not Available Thera multivit middleton 1 tab daily 09/01 completed Not Available Not Available Not Available SF 5000 Plus once daily active brush on teeth Not Available Not Available Not Available imatinib 200 mg QD 09/01 completed Not Available Not Available Not Available bacitraci n (bulk) BID x 7 days 06/06 completed PRN Not Available Not Available Not Available Sennalax- S active PRN Not Available Not Available Not Available BAG BALM daily at bedtime active Not Available Not Available No t Available ferrous gluconate 324 mg (38 mg iron) tablet active Not Available Not Available Not Available Athlete's Foot (clotrima zole) 1 % topical cream APPLY TO THE AFFECTED AND SURROUND ING AREAS OF SKIN BY TOPICAL ROUTE 2 TIMES PER DAY IN THE MORNING AND EVENING active Not Available Not Available No t Available diclofena c 1 % topical gel APPLY 2 GRAMS TOPICALL Y TO RIGHT GREAT TOE 4 TIMES A DAY FOR ARTHRITI S PAIN (DIME SIZE AMOUNT) 2024 active Not Available Not Available Not Avai lable Tussin 100 mg/5 mL oral liquid Take 10 mL every 4 hours by oral route. active prn Not Available Not Available No t Available GaviLyte- G 236 gram-22.7 4 gram-6.74 gram-5.86 gram oral solution 06/06 completed Not Available Not Available Not Available loratadin e 10 mg capsule Take 10 mg every day by oral route. 09/01 completed Not Available Not Available Not Available ferrous gluconate 324 mg (37.5 mg iron) tablet Take 1 mg every 12 hours by oral route. 09/01 completed Not Available Not Available Not Available Fiber Therapy (methylce llulose-s ugar) 2 gram/19 gram oral powder active Not Available Not Available Not Available Stimulant Laxative Plus 8.6 mg-50 mg tablet active Not Available Not Available Not Available Probiotic Pearls Q 06/06 completed Not Available Not Available Not Available Citrucel QD active Not Available Not Avai lable Not Available Sodium Fluoride 5000 Plus 1.1 % dental cream active Not Available Not Available Not Available Fish Oil 1,200 mg (144 mg-216 mg) capsule twice a day active Not Available Not Available No t Available Profola 20 mg iron-1,67 0 mcg DFE tablet active Not Available Not Available Not Available Vitals Date Recorded Heart rate Systolic blood pressure Diastolic blood pressure Provider Name and Address Organization Details Last Updated DateTime 04/24/2024 76 /min 110 mm[Hg] 61 mm[Hg] [facility] 04/24/2024 12:06:32 Date Recorded Body weight Heart rate Systolic blood pressure Diastolic blood pressure Provider Name and Address Organization Details Last Updated DateTime 09/09/2023 16767.75 g 76 /min 98 mm[Hg] 60 mm[Hg] [facility] 09/09/2023 10:26:28 Date Recorded Heart rate Systolic blood pressure Diastolic blood pressure Provider Name and Address Organization Details Last Updated DateTime 11/25/2023 76 /min 82 mm[Hg] 47 mm[Hg] Wendi Kolb [facility] 11/25/2023 15:27:50 Date Recorded Heart rate Systolic blood pressure Diastolic blood pressure Provider Name and Address Organization Details Last Updated DateTime 02/10/2024 84 /min 102 mm[Hg] 64 mm[Hg] [facility] 02/10/2024 11:43:14 Social History Question Answer Notes LastModified by Organizat ion Details LastModified Time Tobacco Smoking Status Never Smoker Wendi Kolb [facility] 12/23/2019 10:00:52 What Was The Date Of Your Most Recent Tobacco Screening? 06/02/2021 Information not available 06/02/2021 Sex: Male Functional Status Question Answer Note LastModified by Organizat ion Details LastModified Time Do you or have you ever used smokeless tobacco? Never used smokeless tobacco Information not available 09/12/2020 Do you or have you ever used e-cigarettes or vape? Never used electronic cigarettes [email or web address] Information not available 09/12/2020 Mental Status None recorded. Family History Nothing Reported. Medical History No medical history recorded. Immunizations Vaccine Type Date Status Note Provider Nam e and Address Organization Details Recorded Time COVID-19, mRNA, LNP-S, PF, 30 mcg/0.3 mL dose 03/30/2020 completed Wendi Cortes cevallos [facility] 03/31/2021 10:14:04 COVID-19, mRNA, LNP-S, PF, 30 mcg/0.3 mL dose 04/20/2020 completed Wendi cevallos [facility] 03/31/2021 10:14:53 Past Encounters Encounter ID Performer Location Encounter Start Date Encounter Closed Date Diagnosis/Indication Diagnosis SNOMED-CT Code Diagnosis ICD10 Code Diagnosis Note [id number] Delmar Hernandez MD Radiology , [address] [address] 06/08/2002 16:37:06 03/17/2008 02:02:29 [id number] [facility], ISIAH STEARNS MD [facility], [address] [address] 04/07/2008 10:17:35 04/08/2008 07:30:02 [id number] Ten Garrett DPM Podiatry, [address] [address] 04/13/2019 10:17:55 04/13/2019 11:25:25 Pronation of foot 66711299 M21.6X9 Leg length inequality 45 683404 M21.70 [id number] Ten Garrett DPM Podiatry, [address] [address] 12/23/2019 09:55:09 12/23/2019 10:54:43 Onycholysis 72360469 L60.1 [id number] Ten Garrett DPM Podiatry, [address] [address] 06/08/2020 12:21:05 06/08/2020 13:15:17 Peripheral vascular disease 365165949 I73.9 Hypertrophy of nail 3065 4002 L60.2 [id number] Ten Garrett DPM Podiatry, [address] [address] 09/12/2020 09:41:16 09/12/2020 10:09:14 Peripheral vascular disease 142841173 I73.9 Hypertrophy of nail 3065 4002 L60.2 [id number] Isiah Stearns MD Podiatry, [address] [address] 01/27/2021 09:39:23 02/09/2021 15:41:55 Peripheral vascular disease 414922389 I73.9 Hypertrophy of nail 3065 4002 L60.2 [id number] Apryl Ramirez MD Podiatry, [address] [address] 03/31/2021 09:53:39 04/05/2021 14:06:53 Hammer toe 635848775 M20.40 [id number] Apryl Ramirez MD Podiatry, [address] [address] 06/02/2021 09:43:55 06/02/2021 10:34:55 Peripheral vascular disease 695583362 I73.9 Hypertrophy of nail 3065 4002 L60.2 [id number] Apryl Ramirez MD Podiatry, [address] [address] 09/01/2021 10:52:20 09/01/2021 14:14:13 Peripheral vascular disease 172241695 I73.9 Hypertrophy of nail 3065 4002 L60.2 [id number] Apryl Ramirez MD Podiatry, [address] [address] 01/12/2022 09:09:57 01/16/2022 08:45:04 Peripheral vascular disease 995654690 I73.9 Hypertrophy of nail 3065 4002 L60.2 [id number] Alex Manzano MD Endoscopy , [address] [address] 06/27/2022 10:24:39 06/27/2022 13:05:31 [id number] Apryl Ramirez MD Podiatry, [address] [address] 06/29/2022 11:03:13 07/02/2022 14:49:35 Peripheral vascular disease 386786243 I73.9 Hypertrophy of nail 3065 4002 L60.2 [id number] Apryl Ramirez MD Podiatry, [address] [address] 10/12/2022 10:21:10 10/15/2022 13:53:28 Peripheral vascular disease 039178165 I73.9 Hypertrophy of nail 3065 4002 L60.2 [id number] Apryl Ramirez MD Podiatry, [address] [address] 01/11/2023 10:54:24 01/11/2023 11:44:20 Peripheral vascular disease 555199499 I73.9 Hypertrophy of nail 3065 4002 L60.2 [id number] Apryl Ramirez MD Podiatry, [address] [address] 03/04/2023 14:06:04 03/04/2023 15:52:07 Onycholysis 96698836 L60.1 [id number] Apryl Ramirez MD Podiatry, [address] [address] 06/07/2023 11:45:10 06/12/2023 08:41:27 Peripheral vascular disease 376813933 I73.9 Hypertrophy of nail 3065 4002 L60.2 [id number] Apryl Ramirez MD Podiatry, [address] [address] 09/09/2023 09:52:55 09/17/2023 13:02:58 Peripheral vascular disease 400587367 I73.9 Hypertrophy of nail 3065 4002 L60.2 [id number] Apryl Rmairez MD Podiatry, [address] [address] 11/25/2023 15:11:14 11/26/2023 13:45:03 Peripheral vascular disease 547961231 I73.9 Idiopathic peripheral neuropathy 43410551 G60.3 Hypertrophy of nail 3065 4002 L60.2 [id number] Apryl Ramirez MD Podiatry, [address] [address] 02/10/2024 11:35:59 02/17/2024 09:46:23 Peripheral vascular disease 774407984 I73.9 Idiopathic peripheral neuropathy 06041885 G60.3 Hypertrophy of nail 3065 4002 L60.2 [id number] Apryl Ramirez MD Podiatry, [address] [address] 04/24/2024 11:58:46 04/24/2024 13:22:55 Peripheral vascular disease 263360133 I73.9 Idiopathic peripheral neuropathy 78076770 G60.3 Hypertrophy of nail 3065 4002 L60.2 [id number] Apryl Ramirez MD Podiatry, [address] [address] 07/10/2024 10:58:10 07/10/2024 14:10:47 Peripheral vascular disease 402399992 I73.9 Idiopathic peripheral neuropathy 20504817 G60.3 Hypertrophy of nail 3065 4002 L60.2 Health Concerns Section Related Observation LastModified by Organization Detai ls LastModified Time None Recorded Concern Status LastModified by Organization Details LastModified Time None Recorded Advance Directives Directive None Recorded Payers Encounter Date Sequence Insurance Name Policy Number Policy Echeverria Covered Member ID Echeverria Member ID Guarantor Name 09/09/2023 1 [place] [employer] Wolfgang Bright [id number] Wolfgang Bright 09/09/2023 2 [place] [facility] Wolfgang Bright [id number] Wolfgang Bright 11/25/2023 1 [place] [employer] Wolfgang Bright [id number] Wolfgang Amador Garrabrants 11/25/2023 2 [place] [facility] Wolfgang Amador Garrabrants [id number] Wolfgang Amador Garrabrants 02/10/2024 1 [place] [employer] Wolfgang Amador Garrabrants [id number] Wolfgang Perry Garrabrants 02/10/2024 2 [place] [facility] Wolfgang Amador Garrabrants [id number] 5 Wolfgang Amador Garrabrants 04/24/2024 1 [place] [employer] Wolfgang Amador Garrabrants [id number] Wolfgang W Garrabrants 04/24/2024 2 [place] [facility] Wolfgang Aamdor Garrabrants [id number] 5 Wolfgang Amador Garrabrants 07/10/2024 1 [place] [employer] Wolfgang Amador Garrabrants [id number] Wolfgang Perry Garrabrants 07/10/2024 2 [place] [facility] Wolfgang Amador Garrabrants [id number] 5 Wolfgang Amador Garrabrants Notes Date Note Type Note Provider Name and Address Organization Details Recorded Time 09/09/2023 text/html Patient with peripheral vascular disease presents to the office for evaluation and at risk foot care. Patient complains of thickened toenails that he cannot care for himself. Patient has no complaints of open wound or drainage. Patient seen by William Perez DO on 08/26/2023. Ten Garrett DPM [address] [place] [address], [address], [facility] 09/09/2023 11:11:09 11/25/2023 text/html Patient with peripheral vascular disease and peripheral neuropathy presents to the office for evaluation and at risk foot care. Patient complains of thickened toenails that he cannot care for himself. Patient has no complaints of open wound or drainage. Patient seen by William Perez DO on 08/26/2023. Ten Garrett DPM [address] [place], [address], [facility] 11/25/2023 15:40:11 02/10/2024 text/html Patient with peripheral vascular disease and peripheral neuropathy presents to the office for evaluation and at risk foot care. Patient complains of thickened toenails that he cannot care for himself. Patient has no complaints of open wound or drainage. Patient seen by William Perez DO on 12/10/2023. Ten Garrett DPM [address] [place], [address], [facility] 02/10/2024 12:04:07 04/24/2024 text/html Patient with peripheral vascular disease and peripheral neuropathy presents to the office for evaluation and at risk foot care. Patient complains of thickened toenails that he cannot care for himself. Patient has no complaints of open wound or drainage. Patient seen by William Perez DO on 03/19/2023. Ten Garrett DPM [address] [place], [address], [facility] 04/24/2024 12:16:44 07/10/2024 text/html Patient with peripheral vascular disease and peripheral neuropathy presents to the office for evaluation and at risk foot care. Patient complains of thickened toenails that he cannot care for himself. Patient has no complaints of open wound or drainage. Patient seen by William Perez DO on 06/01/2024. Ten Garrett DPM [address] [place], [address], [facility] 07/10/2024 11:30:35
== END ==
LOC: HO.CARD 13:12
PROVIDERS: Visit Provider Nurse Practitioner Family
DX: Z13.89 Encounter for screening for other disorder (principal)

== ENCOUNTER → 2024-08-12 09:10 | Outpatient (REF) | payer MEDICARE, MEDICAID, SELFPAY ==
--- NOTE | 2024-08-12 09:16 | CA_ITS ---
Transthoracic Echocardiogram Patient (Last, First, Middle): Wolfgang Bright, Gender: Male Date of : 1955 Age: 68 Procedure Date: 08/12/2024 Procedure Type: Transthoracic Echocardiogram Location: OP Height: 167.64 cm Weight: 65.32 kg BSA: 1.74 m2 Heart Rate: 80 bpm BP: 108 / 72 mmHg Journeyman Electrician: SB Referring MD: Alida CAMP Transporter Driver: Ross Betancourt MD Symptoms: G47.33 - Obstructive sleep apnea (adult) (pediatric) Study Quality: Fair ECG Rhythm: Sinus Conclusions: - 1. Normal LV ejection fraction of 60 65% with impaired relaxation filling pattern 2. Cardiac valvular Dopplers within normal limits 3. Upper limits of normal ascending aortic size 4. Trivial pericardial effusion Findings Left Ventricle Normal left ventricular size, thickness, and systolic function. The visually estimated ejection fraction is between 60-65%. Regional wall motion abnormalities can not be excluded due to suboptimal endocardial definition. Spectral Doppler is indicative of an impaired relaxation filling pattern. E/E prime ratio is between 8 and 15 consistent with indeterminate filling pressures. Right Ventricle Normal right ventricular cavity size and systolic function. Atria The left atrium is normal in size. Interatrial shunt cannot be excluded. The right atrium was not well visualized. Aortic Valve The aortic valve structure and function is likely normal. There is no aortic valve stenosis. There is no aortic valve regurgitation. Mitral Valve Normal mitral valve structure and function. There is trace mitral valve regurgitation. There is no mitral valve stenosis. Pulmonic Valve The pulmonic valve was not well visualized. Tricuspid Valve Likely normal tricuspid valve structure and function. Tricuspid regurgitation envelope is inadequate for calculation of right ventricular systolic pressure. Normal right atrial pressure. Great Vessels The pulmonary artery was not well visualized. There is no evidence of plaque in the aorta. Venous The inferior vena cava is normal in size and collapses greater than 50% with inspiration. Pericardium/Pleural There is a trivial loculated pericardial effusion overlying the left ventricle. Prior Study Comparison No prior study available for comparison. Measurements 2D Linear Measurements IVSd: 0.97 0.6-0.9/0.6-1.0 cm LVIDd: 4.77 3.9-5.3/4.2-5.9 cm LVIDd Index: 2.74 2.4-3.2/2.2-3.1 cm/m2 LVIDs: 3.14 2.0-3.6 cm LVPWd: 0.88 0.7-1.1 cm LA Diam: 3.20 2.7-3.8/3.0-4.0 cm LAIDs Index: 1.84 1.5-2.3 cm/m2 LV Mass: 189.53 67-162/88-224 g LV Mass Index: 108.93 43-95/49-115 g/m2 LVOT Diam: 2.10 3.0+(-)1.3 cm Mitral Valve MV Pk E: 0.68 MV PK A: 0.87 MV Decel Time: 176.00 E/A: 0.80 E'Lateral: 4.35 E'Medial: 5.98 E/E' Med: 11.30 E/E' Lat: 15.60 PHT: 52.00 MVA PHT: 4.23 Decel [place]: 3.85 Aortic Valve AoV Pk Andrea: 0.96 AoV Pk Grad: 4.00 CORINNE: 3.41 LVOT LVOT Pk Andrea: 0.95 LVOT Mn Andrea: 0.59 LVOT VTI: 0.19 LVOT Pk Grad: 4.00 LVOT Mn Grad: 2.00 LVOT Diam: 2.10 LVOT Area: 3.46 Diastolic Function MV Pk E: 0.68 MV Pk A: 0.87 E/A: 0.80 E'Medial: 5.98 E/E' Med: 11.30 E' Laterial: 4.35 E/E' Lat: 15.60 Right Ventricle TVS' Andrea: 14.70 Tricuspid Valve RA Press: 3.00 Great Vessels Aorta Sinus of Valsalva: 3.50 2.0-3.5 cm Ao Asc: 3.50 2.1-3.4 cm Pulmonary Veins Pulm Vein S/D 1.70 Pulmonary Valve PV Pk Andrea: 1.29 Peak PV Grad: 7.00 Updated in Other Vendor System with Status of Final Ross Betancourt MD electronically signed on 08/12/2024 11:11:23 AM with status of Final
--- OUTSIDE RECORDS SUMMARY | 2024-08-12 09:59 | XMS_ITS | Data Portability ---
Author Organization [place] Address [address] [place] [address] Care Team Providers Care Forestry And Wildlife Manager Name Role Phone BLOSSOM NOLAND Primary Care Provider TEN GARRETT Vascular Technician Assessment Encounter Date Assessment Date Assessment LastModified [...] By Organization Details Last Modified Time 09/09/2023 [id number] Patient to retur n in 9 weeks for foot care to reduce risk of complications associated with peripheral vascular disease. [email or web address] Not available 09/09/2023 11:10:01 11/25/2023 [id number] Patient to retur n in 9 weeks for foot care to reduce risk of complications associated with peripheral vascular disease and peripheral neuropathy. jerskine Not available 11/25/2023 15:39:37 02/10/2024 [id number] Patient to retur n in 9 weeks for foot care to reduce risk of complications associated with peripheral vascular disease and peripheral neuropathy. jerskine Not available 02/10/2024 12:03:02 04/24/2024 [id number] Patient to retur n in 9 weeks for foot care to reduce risk of complications associated with peripheral vascular disease and peripheral neuropathy. jerskine Not available 04/24/2024 12:15:34 07/10/2024 [id number] Patient to retur n in 9 weeks for foot care to reduce risk of complications associated with peripheral vascular disease and peripheral neuropathy. jerskine Not available 07/10/2024 11:29:38 Reason for Referral None Reported. Procedures Surgical History Date Name Laterality Status Provider Name and Address Organization Details Recorded Time 3 Tassoni - Colonoscopy completed Alex Manzano MD [address] [place] [address], [id number] [place] [address] 06/27/2022 12:17:31 Imaging Results None recorded. Procedure Notes None [...] e 50 mcg/actua tion nasal spray,dewayne pension [place] 2 sprays every day by intranas al [...] Available Not Available Not Available Probiotic Pearls QHS 06/06 completed Not Available Not Available Not [...] Not Available Not Available Not Available Vitals None Recorded Social History Question Answer Notes LastModified by Organizat ion Details LastModified Time What Was The Date Of Your Most Recent Tobacco Screening? 06/02/2021 [email or web address] Information not available 06/02/2021 Sex: Male Functional Status Question Answer Note LastModified by Organizat ion Details LastModified Time Do you or have you ever used smokeless tobacco? Never used smokeless tobacco [email or web address] Information not available 09/12/2020 Do you or have you ever used e-cigarettes or vape? Never used electronic cigarettes [email or web address] Information not available 09/12/2020 Mental Status None recorded. Family History Nothing Reported. Medical History No medical history recorded. Past Encounters Encounter ID Performer Location Encounter Start Date Encounter Closed Date Diagnosis/Indication Diagnosis SNOMED-CT Code Diagnosis ICD10 Code Diagnosis Note [id number] Delmar Hernandez MD Radiology , [address] [address] 06/08/2002 16:37:06 03/17/2008 02:02:29 [id number] [facility], ISIAH KNAPP MD ASP, [address] [address] 04/07/2008 10:17:35 04/08/2008 07:30:02 [id number] Ten Garrett DPM Podiatry, [address] [address] 04/13/2019 10:17:55 04/13/2019 11:25:25 [id number] Ten Garrett DPM Podiatry, [address] [address] 12/23/2019 09:55:09 12/23/2019 10:54:43 [id number] Ten Garrett DPM Podiatry, [address] [address] 06/08/2020 12:21:05 06/08/2020 13:15:17 [id number] Ten Garrett DPM Podiatry, [address] [place] [address] 09/12/2020 09:41:16 09/12/2020 10:09:14 [id number] Isiah Knapp MD Podiatry, [address] [place] [address] 01/27/2021 09:39:23 02/09/2021 15:41:55 [id number] Apryl Ramirez MD Podiatry, [address] [address] 03/31/2021 09:53:39 04/05/2021 14:06:53 [id number] Apryl Ramirez MD Podiatry, [address] [address] 06/02/2021 09:43:55 06/02/2021 10:34:55 [id number] Apryl Ramirez MD Podiatry, [address] [address] 09/01/2021 10:52:20 09/01/2021 14:14:13 [id number] Apryl Ramirez MD Podiatry, [address] [address] 01/12/2022 09:09:57 01/16/2022 08:45:04 [id number] Alex Manzano MD Endoscopy , [address] [address] 06/27/2022 10:24:39 06/27/2022 13:05:31 [id number] Apryl Ramirez MD Podiatry, [address] [address] 06/29/2022 11:03:13 07/02/2022 14:49:35 [id number] Apryl Ramirez MD Podiatry, [address] [address] 10/12/2022 10:21:10 10/15/2022 13:53:28 [id number] Apryl Ramirez MD Podiatry, [address] [address] 01/11/2023 10:54:24 01/11/2023 11:44:20 [id number] Apryl Ramirez MD Podiatry, [address] [address] 03/04/2023 14:06:04 03/04/2023 15:52:07 [id number] Apryl Ramirez MD Podiatry, [address] [address] 06/07/2023 11:45:10 06/12/2023 08:41:27 [id number] Apryl Ramirez MD Podiatry, [address] [address] 09/09/2023 09:52:55 09/17/2023 13:02:58 [id number] Apryl Ramirez MD Podiatry, [address] [address] 11/25/2023 15:11:14 11/26/2023 13:45:03 [id number] Apryl Ramirez MD Podiatry, [address] [address] 02/10/2024 11:35:59 02/17/2024 09:46:23 [id number] Apryl Ramirez MD Podiatry, [address] [address] 04/24/2024 11:58:46 04/24/2024 13:22:55 [id number] Apryl Ramirez MD Podiatry, [address] [address] 07/10/2024 10:58:10 07/10/2024 14:10:47 Health Concerns Section Related Observation LastModified by Organization Detai ls LastModified Time None Recorded Concern Status LastModified by Organization Details LastModified Time None Recorded Advance Directives Directive None Recorded Payers Insurance Date Sequence Insurance Name Policy Number Policy Echeverria Covered Member ID Echeverria Member ID Guarantor Name 07/14/2024 2 [place] [facility] Wolfgang Bright [id number] Wolfgang Bright 07/14/2024 1 [place] B[place] [employer] Wolfgang Bright [id number] Wolfgang Bright 07/14/2024 2 [place] [facility] ([facility]) Wolfgang Bright [id number] Wolfgang Bright 07/14/2024 2 [place] [facility] Wolfgang Bright [id number] Wolfgang Bright
== END ==
LOC: HO.CARD 09:10
PROVIDERS: Visit Provider Nurse Practitioner Family
DX: G47.33 Obstructive sleep apnea (adult) (pediatric) (principal); G93.1 Anoxic brain damage, not elsewhere classified; F84.9 Pervasive developmental disorder, unspecified; Q03.1 Atresia of foramina of Magendie and Luschka; R56.9 Unspecified convulsions
CPT/HCPCS: 93306

== ENCOUNTER → 2024-08-12 09:16 | Outpatient (BNV) | payer MEDICARE, MEDICAID, SELFPAY | PROVIDERS: Visit Provider Internal Medicine Cardiovascular Disease | DX: I31.39 Other pericardial effusion (noninflammatory) (principal); I51.89 Other ill-defined heart diseases | CPT/HCPCS: 93306 ==

== ENCOUNTER → 2024-09-23 19:30 | Outpatient (REF) | payer MEDICARE, MEDICAID, SELFPAY | LOC: HO.SL 19:30 | PROVIDERS: PCP Family Medicine; Visit Provider Nurse Practitioner Family | DX: G47.33 Obstructive sleep apnea (adult) (pediatric) (principal); G93.1 Anoxic brain damage, not elsewhere classified; F84.9 Pervasive developmental disorder, unspecified; Z99.89 Dependence on other enabling machines and devices | CPT/HCPCS: 95811 ==

== ENCOUNTER → 2024-09-23 21:06 | Outpatient (BNV) | payer MEDICARE, MEDICAID, SELFPAY | PROVIDERS: PCP Family Medicine; Visit Provider Psychiatry & Neurology Neurology | DX: G47.33 Obstructive sleep apnea (adult) (pediatric) (principal) | CPT/HCPCS: 95811 ==

== ENCOUNTER 2024-11-27 09:26 | Outpatient (AMB) | payer MEDICARE, MEDICAID, SELFPAY ==
--- OUTSIDE RECORDS SUMMARY | 2016-01-21 01:00 | XMS_ITS | Encounter Summary ---
Author Organization [facility] Address [address] [place] [address] Phone Care Team Providers Care Business Line Controller Name Role Phone William Perez DO Primary Care Provider [phone] Encounter Details Date Type Department Care Team (Late st Contact Info) Description 01/21/2016 Hospital Encounter [facility] General Imaging [address] [place] [address] Trace Hernandez MD 55 [facility] [phone] [place] [address] [email or web address] Social History Tobacco Use Types Packs/Day Years Used Date Smoking Tobacco: Never Smokeless Tobacco: Never Alcohol Use Standard Drinks/Week Comments Yes 0 (1 standard drink = 0.6 oz pur e alcohol) Rare Education Answer Date Recorded Are you interested in more education? Not on rae e 06/22/2022 Are you concerned about learning? Not on file 06/22/2022 No 06/22/2022 No 06/22/2022 Food Answer Date Recorded Within the past 6 months we worried whether our food would run out before we got money to buy more. Never True 2024 Within the past 6 months the food we bought just didn't last and we didn't have enough money to get more. Never True Residential Stability Answer Date Recor ded What is your housing situation today? I have omar sing 2024 How many times have you move d in the past 12 months? Zero (I did not move) 2024 Paying for Meds Answer Date Recorded Do you have trouble paying for medicines? No 2024 Paying Utility Bills Answer Date Record ed Do you have trouble paying your heating or elect ricity bill? No 2024 Transportation Answer Date Recorded Has the lack of transportati on kept you from medical appointments or from getting medications? No 2024 Digital Access Answer Date Recorded No 2024 Yes 2024 Do you have reliable internet access at home? Ye s 2024 Do you have a device (e.g., phone, tablet, computer) with a working camera? Yes 2024 Intimate Partner Violence Answer Date R ecorded Are you denied basic needs s uch as food, clothing, or medical care? No 2024 In the past 12 months have y ou been in a relationship with a person who hurts, threatens, or tries to control you? No 2024 Are you denied basic needs s uch as food, clothing, or medical care? No 2024 In the past 12 months have y ou been in a relationship with a person who hurts, threatens, or tries to control you? No 2024 Sex and Gender Information Value Date Recorded Sex Assigned at Male 03/04/2017 9:35 AM EST Legal Sex Male 3:55 PM EST Gender Identity Male 03/04/2017 9:35 AM EST Sexual Orientation Choose not to disclose 2017 9:35 AM EST documented as of this encounter Functional Status * Calculated C-SSRS Risk Score (Lifetime/Recent) Answer Date of Assessment Author No Risk Indicated 2024 6:43 PM Preeti Pereira RN * [place] Suicide Severity Rating Scale (Screener/Recent Self-Report) Question Answer Date of Assessment Author 1. Wish to be (Past 1 Month) No 2024 6:43 PM India Olvera RN 2. Non-Specific Active Suici pal Thoughts (Past 1 Month) No 2024 6:43 PM EDT Dino Madsen RN 6. Suicidal Behavior (Lifetime) No 6:43 PM EDT Preeti Madsen RN documented as of this encounter Plan of Treatment Upcoming Encounters Date Type Department Care Team (Late st Contact Info) Description 12/11/2024 10:00 AM EDT Office Visit [facility] [address] [place] [address] William Perez DO 234 [facility], [address] [place] [address] [email or web address] documented as of this encounter Procedures Procedure Name Priority Date/Time Associated Diagnosis Comments XR SPINE OUTSIDE (NO INTERPRETATION) Routine 01/21/2016 12:00 AM EST documented in this encounter Results * XR SPINE OUTSIDE(NO INTERPRETATION) (01/21/2016 12:00 AM EST) Narrative [facility]AC[facility] - 12/10/2016 12:36 PM EDT This study is for PACS storage only and not for interpretation. 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 05/30/2018 09/21/2022 1:23 AM EDT CoV-Exposed Comment:Recent close contact 03/07/2020 03/07/2020 03/21/2020 1:24 AM EST CoV-Risk 12/02/2020 12/02/2020 12/12/2020 1:22 AM EDT CoV-Risk 07/13/2021 07/13/2021 07/24/2021 1:22 AM EDT CoV-Presumed 07/26/2021 07/26/2021 08/16/2021 1:23 AM EDT documented as of this encounter Care Teams Business Line Controller Relationship Specialty Start Date End Date William Perez DO [address] [place] [address], [address] [place] [address] [email or web address] PCP - General 03/12/14 documented as of this encounter Additional Source Comments The information contained in this document represents components of the legal health record. It is not the complete legal health record.[facility]
--- OUTSIDE RECORDS SUMMARY | 2016-01-21 01:15 | XMS_ITS | Encounter Summary ---
Author Organization [facility] Address [address] [place] [address] Phone Care Team Providers Care Behavior Interventionist Name Role Phone William Perez DO Primary Care Provider Encounter Details Date Type Department Care Team ([facility] st Contact Info) Description 01/21/2016 12:15 AM EST Hospital Encounter [facility] Imaging 55 [place] [address] Trace Hernandez MD 55 [facility] [phone] [place] [address] [email or web address] Social History Tobacco Use Types Packs/Day [...] your housing situation today? I have omar jesus 2024 How many times have you move [...] 2024 6:43 PM Preeti Pereira RN * [place] Suicide Severity Rating Scale (Screener/Recent Self-Report) Question [...] Description 12/11/2024 10:00 AM EDT Office Visit [facility] [address] [place] [address] William Perez DO 234 [facility], [address] [place] [address] [email or web address] documented as of this encounter Procedures Procedure Name Priority Date/Time Associated Diagnosis Comments XR SPINE OUTSIDE (NO INTERPRETATION) Routine 01/21/2016 12:15 AM EST documented in this encounter Results * XR SPINE OUTSIDE(NO INTERPRETATION) (01/21/2016 12:15 AM EST) Narrative [facility] IMG INTERFACES - 12/10/2016 12:37 PM EDT This study is for PACS storage only and not for interpretation. us Trace Hernandez MD IMG OUTSIDE IMAGING W/OUT IN TERPRETATION Final Result [facility] IMG INTERFACES documented in this encounter Visit [...] documented as of this encounter Care Teams Behavior Interventionist Relationship Specialty Start Date End Date William Perez FDO [address] [place] [address], [address] [place] [address] [email or web address] PCP - General 03/12/14 documented as of this encounter Additional Source Comments The information contained in this document represents components of the legal health record. It is not the complete legal health record.[facility]
--- OUTSIDE RECORDS SUMMARY | 2016-01-21 01:30 | XMS_ITS | Encounter Summary ---
Author Organization [facility] Address [address] [place] [address] [place] [address] Phone Care Team Providers Care Aesthetics Instructor Name Role Phone William Perez DO Primary Care Provider [phone] Reason for Visit * MRI/CAT Scan - Closed Specialty Diagnoses / Procedures Referred By Sarai t Referred To Contact Procedures CT Head Outside (No Interpretation) Trace Hernandez MD [address] [place] [phone] [place] [address] Phone: tel: fax: mailto:[email or web address] Referral ID Status Reason Start Date Expiration Date Visits Re quested Visits Authorized [id number] Closed 12/10/2016 12/10/2017 1 1 Encounter Details Date Type Department Care Team ([facility] st Contact Info) Description 01/21/2016 12:30 AM EST Hospital En[facility] [address] [place] [address] Trace Hernandez MD [address] [place], [place] [phone] [place] [address] [email or web address] Social History Tobacco Use Types Packs/Day Years [...] Author No Risk Indicated 2024 6:43 PM EDT Preeti Nieto, MARY * [place] Suicide Severity Rating Scale (Screener/Recent Self-Report) Question Answer Date of Assessment Author 1. Wish to be (Past 1 Month) No 2024 6:43 PM EDT India Madsen RN 2. Non-Specific Active Suici pal Thoughts (Past 1 Month) No 2024 6:43 PM EDT Dino Madsen, MARY 6. Suicidal Behavior (Lifetime) No 6:43 PM EDT Pereti Madsen, MARY documented as of this encounter Plan of Treatment Upcoming Encounters Date Type Department Care Team (Late st Contact Info) Description 12/11/2024 10:00 AM EDT Office Visit [facility] [address] [place] [address] William Perez DO 234 [facility], [address] [place] [address] [email or web address] documented as of this encounter Procedures Procedure Name Priority Date/Time Associated Diagnosis Comments CT HEAD OUTSIDE (NO INTERPRETATION) Routine 01/21/2016 12:30 AM EST documented in this encounter Results * CT Head Outside (No Interpretation) (01/21/2016 12:30 AM EST) Narrative [facility] [place] [place] - 12/10/2016 12:37 PM EDT This study is for PACS storage only and not for interpretation. us Trace Hernandez MD IMG OUTSIDE IMAGING W/OUT IN TERPRETATION Final Result [facility] documented in this [...] documented as of this encounter Care Teams Aesthetics Instructor Relationship Specialty Start Date End Date William Perez DO [address] [place] [address], [address] [place] [address] [email or web address] PCP - General 03/12/14 documented as of this encounter Additional Source Comments The information contained in this document represents components of the legal health record. It is not the complete legal health record.[facility]
--- OUTSIDE RECORDS SUMMARY | 2016-01-21 01:45 | XMS_ITS | Encounter Summary ---
Author Organization [facility] Address [address] [place] [address] Phone Care Team Providers Care Sales Professional Bilingual Name Role Phone William Perez DO Primary Care Provider [phone] Encounter Details Date Type Department Care Team (Late st Contact Info) Description 01/21/2016 12:45 AM EST Hospital Encounter [facility] Imaging [address] [place] [address] Trace Hernandez MD 55 [facility] [phone] [place] [address] [email or web address] Social History Tobacco Use Types Packs/Day [...] 2024 6:43 PM Preeti Pereira RN * [place] Suicide Severity Rating Scale (Screener/Recent Self-Report) Question [...] Description 12/11/2024 10:00 AM EDT Office Visit [facility] [address] [place] [address] William Perez DO 234 [facility] [address] [place] [address] [email or web address] documented as of this encounter Procedures Procedure Name Priority Date/Time Associated Diagnosis Comments XR UPPER EXTREMITY OUTSIDE (NO INTERPRETATION) Routine 01/21/2016 12:45 AM EST documented in this encounter Results * XR Upper Extremity Outside (No Interpretation) (01/21/2016 12:45 AM EST) Narrative [facility] IMG INTERFACES - 12/10/2016 12:37 PM EDT This study is for PACS storage only and not for interpretation. us Trace Hernandez MD IMG OUTSIDE IMAGING W/OUT IN TERPRETATION Final Result [facility] IMG INTERFACES documented in this encounter Visit [...] documented as of this encounter Care Teams Sales Professional Bilingual Relationship Specialty Start Date End Date William Perez DO [address] [place] [address], [address] [place] [address] [email or web address] PCP - General 03/12/14 documented as of this encounter Additional Source Comments The information contained in this document represents components of the legal health record. It is not the complete legal health record.[facility]
--- OUTSIDE RECORDS SUMMARY | 2016-01-21 02:00 | XMS_ITS | Encounter Summary ---
Author Organization [facility] Address [address] [place] [address] Phone Care Team Providers Care Hogshead Filler Name Role Phone William Perez DO Primary Care Provider [phone] Encounter Details Date Type Department Care Team (Late st Contact Info) Description 01/21/2016 1:00 AM EST Hospital Encounter [facility] 55 [place] [address] Trace Hernandez MD 55 [facility] [phone] [place] [address] [email or web address] Social History Tobacco Use Types Packs/Day [...] 2024 6:43 PM Preeti Pereira RN * [place] Suicide Severity Rating Scale (Screener/Recent Self-Report) Question [...] 12/11/2024 10:00 AM EDT Office Visit [facility] [address] [place] [address] William Perez DO 234 [facility] [address] [place] [address] [email or web address] documented as of this encounter Procedures Procedure Name Priority Date/Time Associated Diagnosis Comments XR UPPER EXTREMITY OUTSIDE (NO INTERPRETATION) Routine 01/21/2016 1:00 AM EST documented in this encounter Results * XR Upper Extremity Outside (No Interpretation) (01/21/2016 1:00 AM EST) Narrative [facility] IMG INTERFACES - 12/10/2016 12:38 PM EDT This study is for PACS storage only and not for interpretation. us Trace Hernandez MD IMG OUTSIDE IMAGING W/OUT IN TERPRETATION Final Result [facility] IMG INTERFACES documented in this encounter Visit [...] documented as of this encounter Care Teams Hogshead Filler Relationship Specialty Start Date End Date William Perez DO [address] [place] [address], [address] [place] [address] [email or web address] PCP - General 03/12/14 documented as of this encounter Additional Source Comments The information contained in this document represents components of the legal health record. It is not the complete legal health record.[facility]
--- OUTSIDE RECORDS SUMMARY | 2016-01-21 02:15 | XMS_ITS | Encounter Summary ---
Author Organization [facility] Address [address] [place] [address] [place] [address] Phone Care Team Providers Care Pathology Laboratory Director Name Role Phone William Perez DO Primary Care Provider [phone] Reason for Visit * MRI/CAT Scan - Closed Specialty Diagnoses / Procedures Referred By Sarai t Referred To Contact Procedures CT Head Outside (No Interpretation) Trace Hernandez MD [address] [place] [phone] [place] [address] Phone: tel: fax: mailto:[email or web address] Referral ID Status Reason Start Date Expiration Date Visits Re quested Visits Authorized [id number] Closed 12/10/2016 12/10/2017 1 1 Encounter Details Date Type Department Care Team ([facility] st Contact Info) Description 01/21/2016 1:15 AM EST Hospital Encounter [facility] [address] [place] [address] Trace Hernandez MD [address] [place], [place] [phone] [place] [address] [email or web address] Social History Tobacco Use Types Packs/Day [...] 6:43 PM EDT Preeti Nieto, MARY * [place] Suicide Severity Rating Scale (Screener/Recent Self-Report) Question Answer Date of Assessment Author 1. Wish to be (Past 1 Month) No 2024 6:43 PM EDT India Madsen RN 2. Non-Specific Active Suici pal Thoughts (Past 1 Month) No 2024 6:43 PM EDT Dino Madsen, MARY 6. Suicidal Behavior (Lifetime) No 6:43 PM EDT Preeti Madsen, MARY documented as of this encounter Plan of Treatment Upcoming Encounters Date Type Department Care Team (Late st Contact Info) Description 12/11/2024 10:00 AM EDT Office Visit [facility] [address] [place] [address] William Perez DO 234 [facility], [address] [place] [address] [email or web address] documented as of this encounter Procedures Procedure Name Priority Date/Time Associated Diagnosis Comments CT HEAD OUTSIDE (NO INTERPRETATION) Routine 01/21/2016 1:15 AM EST documented in this encounter Results * CT Head Outside (No Interpretation) (01/21/2016 1:15 AM EST) Narrative [facility] - 12/10/2016 12:38 PM EDT This study is for PACS storage only and not for interpretation. us Trace Hernandez MD IMG OUTSIDE IMAGING W/OUT IN TERPRETATION Final Result [facility] documented in this encounter Visit [...] documented as of this encounter Care Teams Pathology Laboratory Director Relationship Specialty Start Date End Date William Perez DO [address] [place] [address], [address] [place] [address] [email or web address] PCP - General 03/12/14 documented as of this encounter Additional Source Comments The information contained in this document represents components of the legal health record. It is not the complete legal health record.[facility]
--- OUTSIDE RECORDS SUMMARY | 2016-01-21 02:30 | XMS_ITS | Encounter Summary ---
Author Organization [facility] Address [address] [place] [address] [place] [address] Phone Care Team Providers Care Accounts Payable Supervisor Name Role Phone William Perez DO Primary Care Provider Reason for Visit * MRI/CAT Scan - Closed Specialty Diagnoses / Procedures Referred By Sarai t Referred To Contact Procedures CT Head Outside (No Interpretation) Trace Hernandez MD [address] [place] [phone] [place] [address] Phone: tel: fax: mailto:[email or web address] Referral ID Status Reason Start Date Expiration Date Visits Re quested Visits Authorized [id number] Closed 12/10/2016 12/10/2017 1 1 Encounter Details Date Type Department Care Team ([facility] st Contact Info) Description 01/21/2016 1:30 AM EST Hospital Encounter [facility] [address] [place] [address] Trace Hernandez MD [address] [place], [place] [phone] [place] [address] [email or web address] Social History Tobacco Use Types Packs/Day [...] 6:43 PM EDT Preeti Nieto, MARY * [place] Suicide Severity Rating Scale (Screener/Recent Self-Report) Question [...] Description 12/11/2024 10:00 AM EDT Office Visit [facility] [address] [place] [address] William Perez DO 234 [facility], [address] [place] [address] [email or web address] documented as of this encounter Procedures Procedure Name Priority Date/Time Associated Diagnosis Comments CT HEAD OUTSIDE (NO INTERPRETATION) Routine 01/21/2016 1:30 AM EST documented in this encounter Results * CT Head Outside (No Interpretation) (01/21/2016 1:30 AM EST) Narrative [facility] - 12/10/2016 12:38 PM EDT This study is for PACS storage only and not for interpretation. us Trace Hernandez MD IMG OUTSIDE IMAGING W/OUT IN TERPRETATION Final Result [facility] documented in this encounter Visit [...] documented as of this encounter Care Teams Accounts Payable Supervisor Relationship Specialty Start Date End Date William Perez DO [address] [place] [address], [address] [place] [address] [email or web address] PCP - General 03/12/14 documented as of this encounter Additional Source Comments The information contained in this document represents components of the legal health record. It is not the complete legal health record.[facility]
--- OUTSIDE RECORDS SUMMARY | 2016-01-21 02:45 | XMS_ITS | Encounter Summary ---
Author Organization [facility] Address [address] [place] [address] [place] [address] Phone Care Team Providers Care Single End Sewer Name Role Phone William Perez DO Primary Care Provider [phone] Reason for Visit * MRI/CAT Scan - Closed Specialty Diagnoses / Procedures Referred By Sarai t Referred To Contact Procedures CT Head Outside (No Interpretation) Trace Hernandez MD [address] [place] [phone] [place] [address] Phone: tel: fax: mailto:[email or web address] Referral ID Status Reason Start Date Expiration Date Visits Re quested Visits Authorized [id number] Closed 12/10/2016 12/10/2017 1 1 Encounter Details Date Type Department Care Team ([facility] st Contact Info) Description 01/21/2016 1:45 AM EST Hospital Encounter [facility] [address] [place] [address] Trace Hernandez MD [address] [place], [place] [phone] [place] [address] [email or web address] Social History Tobacco Use Types Packs/Day Years [...] Risk Indicated 2024 6:43 PM EDT Preeti Niteo, MARY * [place] Suicide Severity Rating Scale (Screener/Recent Self-Report) Question [...] Description 12/11/2024 10:00 AM EDT Office Visit [facility] [address] [place] [address] William Perez DO 234 [facility], [address] [place] [address] [email or web address] documented as of this encounter Procedures Procedure Name Priority Date/Time Associated Diagnosis Comments CT HEAD OUTSIDE (NO INTERPRETATION) Routine 01/21/2016 1:45 AM EST documented in this encounter Results * CT Head Outside (No Interpretation) (01/21/2016 1:45 AM EST) Narrative [facility] IMG INTERFACES - 12/10/2016 12:38 PM EDT This study is for PACS storage only and not for interpretation. us Trace Hernandez MD IMG OUTSIDE IMAGING W/OUT IN TERPRETATION Final Result [facility] IMG INTERFACES documented in this encounter Visit [...] documented as of this encounter Care Teams Single End Sewer Relationship Specialty Start Date End Date William Perez DO [address] [place] [address], [address] [place] [address] [email or web address] PCP - General 03/12/14 documented as of this encounter Additional Source Comments The information contained in this document represents components of the legal health record. It is not the complete legal health record.[facility]
--- OUTSIDE RECORDS SUMMARY | 2016-01-21 03:00 | XMS_ITS | Encounter Summary ---
Author Organization [facility] Address [address] [place] [address] [place] [address] Phone Care Team Providers Care Jackhammer Operator Name Role Phone William Perez DO Primary Care Provider [phone] Reason for Visit * MRI/CAT Scan - Closed Specialty Diagnoses / Procedures Referred By Sarai t Referred To Contact Procedures CT Head Outside (No Interpretation) Trace Hernandez MD [address] [place] [phone] [place] [address] Phone: tel: fax: mailto:[email or web address] Referral ID Status Reason Start Date Expiration Date Visits Re quested Visits Authorized [id number] Closed 12/10/2016 12/10/2017 1 1 Encounter Details Date Type Department Care Team ([facility] st Contact Info) Description 01/21/2016 2:00 AM EST Hospital Encounter [facility] [address] [place] [address] Trace Hernandez MD [address] [place], [place] [phone] [place] [address] [email or web address] Social History Tobacco Use Types [...] 6:43 PM EDT Preeti Nieto, MARY * [place] Suicide Severity Rating Scale (Screener/Recent Self-Report) Question [...] Description 12/11/2024 10:00 AM EDT Office Visit [facility] [address] [place] [address] William Perez DO 234 [facility], [address] [place] [address] [email or web address] documented as of this encounter Procedures Procedure Name Priority Date/Time Associated Diagnosis Comments CT HEAD OUTSIDE (NO INTERPRETATION) Routine 01/21/2016 2:00 AM EST documented in this encounter Results * CT Head Outside (No Interpretation) (01/21/2016 2:00 AM EST) Narrative [facility] - 12/10/2016 12:38 PM EDT This study is for PACS storage only and not for interpretation. us Trace Hernandez MD IMG OUTSIDE IMAGING W/OUT IN TERPRETATION Final Result [facility] documented in this encounter Visit [...] documented as of this encounter Care Teams Jackhammer Operator Relationship Specialty Start Date End Date William Perez DO [address] [place] [address], [address] [place] [address] [email or web address] PCP - General 03/12/14 documented as of this encounter Additional Source Comments The information contained in this document represents components of the legal health record. It is not the complete legal health record.[facility]
--- OUTSIDE RECORDS SUMMARY | 2016-01-22 01:00 | XMS_ITS | Encounter Summary ---
Author Organization [facility] Address [address] [place] [address] [place] [address] Phone Care Team Providers Care Potato Picker Name Role Phone William Perez DO Primary Care Provider [phone] Reason for Visit * MRI/CAT Scan - Closed Specialty Diagnoses / Procedures Referred By Sarai martinez Referred To Contact Procedures MRI Brain Outside (No Interpretation) Trace Hernandez MD [address] [place] [phone] [place] [address] Phone: tel: fax: mailto:[email or web address] Referral ID Status Reason Start Date Expiration Date Visits Re quested Visits Authorized [id number] Closed 12/10/2016 12/10/2017 1 1 Encounter Details Date Type Department Care Team ([facility] st Contact Info) Description 01/22/2016 Hospital Encounter [facility] [address] [place] [address] Trace Hernandez MD [address] [place] [phone] [place] [address] [email or web address] Social History Tobacco Use Types Packs/Day [...] 6:43 PM EDT Preeti Nieto, MARY * [place] Suicide Severity Rating Scale (Screener/Recent Self-Report) Question [...] Description 12/11/2024 10:00 AM EDT Office Visit [facility] [address] [place] [address] William Perez DO [address] [facility], [address] [place] [address] [email or web address] documented as of this encounter Procedures Procedure Name Priority Date/Time Associated Diagnosis Comments MRI BRAIN OUTSIDE (NO INTERPRETATION) Routine 01/22/2016 12:00 AM EST documented in this encounter Results * MRI Brain Outside (No Interpretation) (01/22/2016 12:00 AM EST) Narrative [facility] IMG INTERFACES - 12/10/2016 12:42 PM EDT This study is for PACS storage only and not for interpretation. us Trace Hernandez MD IMG OUTSIDE IMAGING W/OUT IN TERPRETATION Final Result [facility] IMG INTERFACES documented in [...] documented as of this encounter Care Teams Potato Picker Relationship Specialty Start Date End Date William Perez DO [address] [place] [address], [address] [place] [address] [email or web address] PCP - General 03/12/14 documented as of this encounter Additional Source Comments The information contained in this document represents components of the legal health record. It is not the complete legal health record.[facility]
--- OUTSIDE RECORDS SUMMARY | 2016-01-22 01:15 | XMS_ITS | Encounter Summary ---
Author Organization [facility] Address [address] [place] [address] [place] [address] Phone Care Team Providers Care Puncher And Fastener Name Role Phone William Perez DO Primary Care Provider [phone] Reason for Visit * MRI/CAT Scan - Closed Specialty Diagnoses / Procedures Referred By Sarai martinez Referred To Contact Procedures MRI Brain Outside (No Interpretation) Trace Hernandez MD [address] [place] [phone] [place] [address] Phone: tel: fax: mailto:[email or web address] Referral ID Status Reason Start Date Expiration Date Visits Re quested Visits Authorized [id number] Closed 12/10/2016 12/10/2017 1 1 Encounter Details Date Type Department Care Team ([facility] st Contact Info) Description 01/22/2016 12:15 AM EST Hospital Encounter [facility] 55 [place] [address] Trace Hernandez MD [address] [place], [place] [phone] [place] [address] [email or web address] Social History Tobacco Use [...] 6:43 PM EDT Preeti Nieto, MARY * [place] Suicide Severity Rating Scale (Screener/Recent Self-Report) Question [...] Description 12/11/2024 10:00 AM EDT Office Visit [facility] [address] [place] [address] William Perez DO 234 [facility], [address] [place] [address] [email or web address] documented as of this encounter Procedures Procedure Name Priority Date/Time Associated Diagnosis Comments MRI BRAIN OUTSIDE (NO INTERPRETATION) Routine 01/22/2016 12:15 AM EST documented in this encounter Results * MRI Brain Outside (No Interpretation) (01/22/2016 12:15 AM EST) Narrative [facility] [place] - 12/10/2016 12:42 PM EDT This study is for PACS storage only and not for interpretation. us Trace Hernandez MD IMG OUTSIDE IMAGING W/OUT IN TERPRETATION Final Result [facility] documented in this encounter [...] documented as of this encounter Care Teams Puncher And Fastener Relationship Specialty Start Date End Date William Perez DO [address] [place] [address], [address] [place] [address] [email or web address] PCP - General 03/12/14 documented as of this encounter Additional Source Comments The information contained in this document represents components of the legal health record. It is not the complete legal health record.[facility]
--- OUTSIDE RECORDS SUMMARY | 2016-01-22 01:30 | XMS_ITS | Encounter Summary ---
Author Organization [facility] Address [address] [place] [address] Phone Care Team Providers Care Human Resources Talent Manager Name Role Phone William Perez DO Primary Care Provider [phone] Reason for Visit * MRI/CAT Scan - Closed Specialty Diagnoses / Procedures Referred By Sarai martinez Referred To Contact Procedures MRI Spine (Neuro) Outside (No Interpretation) Trace Hernandez MD [address] [place] [phone] [place] [address] Phone: tel: fax: mailto:[email or web address] Referral ID Status Reason Start Date Expiration Date Visits Re quested Visits Authorized [id number] Closed 12/10/2016 12/10/2017 1 1 Encounter Details Date Type Department Care Team ([facility] st Contact Info) Description 01/22/2016 12:30 AM EST Hospital Encounter [facility] 55 [place] [address] Trace Hernandez MD [address] [place] [phone] [place] [address] [email or web address] Social History Tobacco Use Types Packs/Day Years [...] Indicated 2024 6:43 PM EDT Preeti Nieto, RN * [place] Suicide Severity Rating Scale (Screener/Recent Self-Report) Question [...] Description 12/11/2024 10:00 AM EDT Office Visit [facility] [address] [place] [address] William Perez DO 234 [facility], [address] [place] [address] [email or web address] documented as of this encounter Procedures Procedure Name Priority Date/Time Associated Diagnosis Comments MRI SPINE NEUROLOGIC FOCUS OUTSIDE (NO INTERPRETATION) Routine 01/22/2016 12:30 AM EST documented in this encounter Results * MRI Spine (Neuro) Outside (No Interpretation) (01/22/2016 12:30 AM EST) Narrative [facility] [place] - 12/10/2016 12:43 PM EDT This study is for PACS storage only and not for interpretation. us Trace Hernandez MD IMG OUTSIDE IMAGING W/OUT IN TERPRETATION Final Result [facility] documented in this encounter Visit [...] documented as of this encounter Care Teams Human Resources Talent Manager Relationship Specialty Start Date End Date William Perez DO [address] [place] [address], [address] [place] [address] [email or web address] PCP - General 03/12/14 documented as of this encounter Additional Source Comments The information contained in this document represents components of the legal health record. It is not the complete legal health record.[facility]
--- OUTSIDE RECORDS SUMMARY | 2016-01-22 01:45 | XMS_ITS | Encounter Summary ---
Author Organization [facility] Address [address] [place] [address] Phone Care Team Providers Care Pega Developer Name Role Phone William Perez DO Primary Care Provider Reason for Visit * MRI/CAT Scan - Closed Specialty Diagnoses / Procedures Referred By Sarai martinez Referred To Contact Procedures MRI Spine (Bone) Outside (No Interpretation) Trace Hernandez MD [address] [place] [phone] [place] [address] Phone: tel: fax: mailto:[email or web address] Referral ID Status Reason Start Date Expiration Date Visits Re quested Visits Authorized [id number] Closed 12/10/2016 12/10/2017 1 1 Encounter Details Date Type Department Care Team ([facility] st Contact Info) Description 01/22/2016 12:45 AM EST Hospital Encounter [facility] 55 [place] [address] Trace Hernandez MD [address] [place] [phone] [place] [address] [email or web address] Social History Tobacco Use Types Packs/Day [...] 6:43 PM EDT Preeti Nieto, RN * [place] Suicide Severity Rating Scale (Screener/Recent Self-Report) Question [...] Description 12/11/2024 10:00 AM EDT Office Visit [facility] 234 [place] [address] William Perez DO 234 [facility], [address] [place] [address] [email or web address] documented as of this encounter Procedures Procedure Name Priority Date/Time Associated Diagnosis Comments MRI SPINE MUSCULOSKELETAL FOCUS OUTSIDE (NO INTERPRETATION) Routine 01/22/2016 12:45 AM EST documented in this encounter Results * MRI Spine (Bone) Outside (No Interpretation) (01/22/2016 12:45 AM EST) Narrative [facility] - 12/10/2016 12:44 PM EDT This study is for PACS storage only and not for interpretation. us Trace Hernandez MD IMG OUTSIDE IMAGING W/OUT IN TERPRETATION Final Result [facility] documented in this encounter Visit [...] documented as of this encounter Care Teams Pega Developer Relationship Specialty Start Date End Date William Perez DO [address] [place] [address], [address] [place] [address] [email or web address] PCP - General 03/12/14 documented as of this encounter Additional Source Comments The information contained in this document represents components of the legal health record. It is not the complete legal health record.[facility]
--- OUTSIDE RECORDS SUMMARY | 2016-01-25 01:00 | XMS_ITS | Encounter Summary ---
Author Organization [facility] Address [address] [facility] [place] [address] Phone Care Team Providers Care Embedded Systems Software Engineer Name Role Phone William Perez DO Primary Care Provider [phone] Encounter Details Date Type Department Care Team (Late st Contact Info) Description 01/25/2016 Hospital Encounter [facility] General Imaging 55 [place] [address] Trace Hernandez MD 55 [facility] [phone] [place] [address] [email or web address] Social History Tobacco Use Types Packs/Day Years [...] 2024 6:43 PM Preeti Pereira RN * [place] Suicide Severity Rating Scale (Screener/Recent Self-Report) Question [...] Description 12/11/2024 10:00 AM EDT Office Visit [facility] 234 [place] [address] William Perez DO 234 [facility], [address] [place] [address] [email or web address] documented as of this encounter Procedures Procedure Name Priority Date/Time Associated Diagnosis Comments [place] SPINE OUTSIDE (NO INTERPRETATION) Routine 01/25/2016 12:00 AM EST documented in this encounter Results * [place] Spine Outside (No Interpretation) (01/25/2016 12:00 AM EST) Narrative [facility] [place] [place] - 12/10/2016 12:45 PM EDT This study is for PACS storage only and not for interpretation. us Trace Hernandez MD IMG OUTSIDE IMAGING W/OUT IN TERPRETATION Final Result [facility] documented in [...] documented as of this encounter Care Teams Embedded Systems Software Engineer Relationship Specialty Start Date End Date William Perez DO [address] [place] [address], [address] [place] [address] [email or web address] PCP - General 03/12/14 documented as of this encounter Additional Source Comments The information contained in this document represents components of the legal health record. It is not the complete legal health record.[facility]
--- OUTSIDE RECORDS SUMMARY | 2016-01-26 01:00 | XMS_ITS | Encounter Summary ---
Author Organization [facility] Address [address] [place] [address] [place] [address] Phone Care Team Providers Care Media Theorist And Author Of Name Role Phone William Perez DO Primary Care Provider [phone] Reason for Visit * MRI/CAT Scan - Closed Specialty Diagnoses / Procedures Referred By Sarai martinez Referred To Contact Procedures CT Neck Outside (No Interpretation) Trace Hernandez MD [address] [place] [phone] [place] [address] Phone: tel: fax: mailto:[email or web address] Referral ID Status Reason Start Date Expiration Date Visits Re quested Visits Authorized [id number] Closed 12/10/2016 12/10/2017 1 1 Encounter Details Date Type Department Care Team ([facility] st Contact Info) Description 01/26/2016 Hospital Encounter [facility] 55 [place] [address] Trace Hernandez MD [address] [place] [phone] [place] [address] [email or web address] Social History Tobacco Use [...] 6:43 PM EDT Preeti Nieto, MARY * [place] Suicide Severity Rating Scale (Screener/Recent Self-Report) Question [...] Description 12/11/2024 10:00 AM EDT Office Visit [facility] [address] [place] [address] William Perez DO 234 [facility], [address] [place] [address] [email or web address] documented as of this encounter Procedures Procedure Name Priority Date/Time Associated Diagnosis Comments CT NECK OUTSIDE (NO INTERPRETATION) Routine 01/26/2016 12:00 AM EST documented in this encounter Results * CT Neck Outside (No Interpretation) (01/26/2016 12:00 AM EST) Narrative [facility]G INTERFACES - 12/10/2016 12:46 PM EDT This study is for PACS storage only and not for interpretation. us Trace Hernandez MD IMG OUTSIDE IMAGING W/OUT IN TERPRETATION Final Result [facility]G INTERFACES documented in this [...] documented as of this encounter Care Teams Media Theorist And Author Of Relationship Specialty Start Date End Date William Perez DO [address] [place] [address], [address] [place] [address] [email or web address] PCP - General 03/12/14 documented as of this encounter Additional Source Comments The information contained in this document represents components of the legal health record. It is not the complete legal health record.[facility]
--- OUTSIDE RECORDS SUMMARY | 2016-05-07 | XMS_ITS | Encounter Summary ---
Author Organization [facility] Address [address] [place] [address] [place] [address] Phone Care Team Providers Care Coldfusion Name Role Phone William Perez DO Primary Care Provider [phone] Reason for Visit * MRI/CAT Scan - Closed Specialty Diagnoses / Procedures Referred By Sarai t Referred To Contact Procedures MRI Spine (Bone) Outside (No Interpretation) Trace Hernandez MD [address] [place] [phone] [place] [address] Phone: tel: fax: mailto:[email or web address] Referral ID Status Reason Start Date Expiration Date Visits Re quested Visits Authorized [id number] Closed 12/10/2016 12/10/2017 1 1 Encounter Details Date Type Department Care Team ([facility] st Contact Info) Description 05/07/2016 Hospital Encounter [facility] General Imaging 55 [place] [address] Trace Hernandez MD [address] [place] [phone] [place] [address] [email or web address] Social History Tobacco Use Types Packs/Day [...] 6:43 PM EDT Preeti Nieto, MARY * [place] Suicide Severity Rating Scale (Screener/Recent Self-Report) Question [...] Description 12/11/2024 10:00 AM EDT Office Visit [facility] [address] [place] [address] William Perez DO 234 [facility], [address] [place] [address] [email or web address] documented as of this encounter Procedures Procedure Name Priority Date/Time Associated Diagnosis Comments MRI SPINE MUSCULOSKELETAL FOCUS OUTSIDE (NO INTERPRETATION) Routine 05/07/2016 12:00 AM EDT documented in this encounter Results * MRI Spine (Bone) Outside (No Interpretation) (05/07/2016 12:00 AM EDT) Narrative [facility] IMG INTERFACES - 12/10/2016 12:41 PM EDT This study is for PACS storage only and not for interpretation. us Trace Hernandez MD IMG OUTSIDE IMAGING W/OUT IN TERPRETATION Final Result [facility] IMG INTERFACES documented [...] documented as of this encounter Care Teams Coldfusion Relationship Specialty Start Date End Date William Perez DO [address] [place] [address], [address] [place] [address] [email or web address] PCP - General 03/12/14 documented as of this encounter Additional Source Comments The information contained in this document represents components of the legal health record. It is not the complete legal health record.[facility]
--- OUTSIDE RECORDS SUMMARY | 2016-05-07 00:15 | XMS_ITS | Encounter Summary ---
Author Organization [facility] Address [address] [place] [address] Phone Care Team Providers Care Motorcycle Mechanic Apprentice Name Role Phone William Perez DO Primary Care Provider [phone] Reason for Visit * MRI/CAT Scan - Closed Specialty Diagnoses / Procedures Referred By Sarai martinez Referred To Contact Procedures MRI Spine (Bone) Outside (No Interpretation) Trace Hernandez MD [address] [place] [phone] [place] [address] Phone: tel: fax: mailto:[email or web address] Referral ID Status Reason Start Date Expiration Date Visits Re quested Visits Authorized [id number] Closed 12/10/2016 12/10/2017 1 1 Encounter Details Date Type Department Care Team ([facility] st Contact Info) Description 05/07/2016 12:15 AM EDT Hospital En[facility] 55 [place] [address] Trace Hernandez MD [address] [place], [place] [phone] [place] [address] [email or web address] Social History Tobacco Use Types Packs/Day [...] 6:43 PM EDT Preeti Nieto, RN * [place] Suicide Severity Rating Scale (Screener/Recent Self-Report) Question [...] EDT Office Visit [facility] [address] [place] [address] William Perez DO 234 [facility], [address] [place] [address] [email or web address] documented as of this encounter Procedures Procedure Name Priority Date/Time Associated Diagnosis Comments MRI SPINE MUSCULOSKELETAL FOCUS OUTSIDE (NO INTERPRETATION) Routine 05/07/2016 12:15 AM EDT documented in this encounter Results * MRI Spine (Bone) Outside (No Interpretation) (05/07/2016 12:15 AM EDT) Narrative [facility] [place]AC[facility] - 12/10/2016 12:42 PM EDT This study is for PACS storage only and not for interpretation. us Trace Hernandez MD IMG OUTSIDE IMAGING W/OUT IN TERPRETATION Final Result [facility] documented in this encounter Visit [...] documented as of this encounter Care Teams Motorcycle Mechanic Apprentice Relationship Specialty Start Date End Date William Perez DO [address] [place] [address], [address] [place] [address] [email or web address] PCP - General 03/12/14 documented as of this encounter Additional Source Comments The information contained in this document represents components of the legal health record. It is not the complete legal health record.[facility]
--- OUTSIDE RECORDS SUMMARY | 2024-11-25 13:30 | XMS_ITS | Encounter Summary ---
Author Organization [facility] Address [address] [place] [address] Phone Care Team Providers Care Service Crew Supervisor Name Role Phone William Perez DO Primary Care Provider [phone] William Perez DO Unavailable Garret Colon MD Unavailable [phone] Reason for Referral * Physical Therapy (Within 2 weeks) - New Request Specialty Diagnoses / Procedures Referred By Sarai martinez Referred To Contact Physical Therapy Diagnoses Peripheral polyneuropathy Mamadou Calvillo DO [address] [facility] [address] [place] [address] Phone: tel: fax: [email or web address] [facility] [address] [place] [address] Phone: tel: fax: Referral ID Status Reason Start Date Expiration Date V isits Requested Visits Authorized [id number] New Request 11/25/2024 11/25/2025 1 1 Reason for Visit * Reason Comments Follow-up Encounter Details Date Type Department Care Team (Late st Contact Info) Description 11/25/2024 1:30 PM EDT Office Visit [facility] [address] [place] [address] Mamadou Calvillo, [address] [facility] [address] [place] [address] [email or web address] Mixed hyperlipidemia (Primary Dx); Peripheral polyneuropathy Social History Tobacco Use Types Packs/Day Years [...] AM EST documented as of this encounter Last Filed Vital Signs Vital Sign Reading Time Taken Comments Blood Pressure 110/62 11/25/2024 1:35 PM EDT Pulse 87 11/25/2024 1:35 PM EDT Temperature 36.2 C (97.2 F) 11/25/2024 1:35 PM EDT Respiratory Rate - - Oxygen Saturation 100% 11/25/2024 1:35 PM EDT Inhaled Oxygen Concentration - - Weight - - Height 167.6 cm (5' 5.98 ) 11/25/2024 1:35 PM ED T Body Mass Index - - documented in this encounter Progress Notes * Mamadou Calvillo, DO - 11/25/2024 1:30 PM EDT Subjective: Patient ID: Wolfgang Bright is a 69 y.o. male. Venkat is here for follow up on a fall out his wheelchair. He did hit his face. No LOC, witnessed fall. He was seen at the ED on the day. He had a CT scan done of neck and head, these are normal He has had no issue since this fall. Staff have no sig. Concerns Venkat has a peripheral neuropathy which has been confirmed by neuro recently. He is losing some strength in upper and lower extremity. ? If he could have additional PT for this to make sure hs is strong enough for transfer and prevent falls Review of Systems Constitutional: Negative for activity change. HENT: Negative for ear pain, facial swelling and tinnitus. Neurological: Negative for facial asymmetry, headaches and changes in memory. Musculoskeletal: Positive for gait problem. Negative for joint pain and neck pain. Objective: Physical Exam Constitutional: Appearance: Normal appearance. Cardiovascular: Rate and Rhythm: Normal rate. Heart sounds: Normal heart sounds. Pulmonary: Effort: Pulmonary effort is normal. Breath sounds: Normal breath sounds. Musculoskeletal: General: Normal range of motion. Cervical back: Normal range of motion and neck supple. Neurological: Mental Status: He is alert. Assessment/Plan: Problem List Items Addressed This Visit Peripheral neuropathy With nerve testing that confirms the neuropathy - will have PT referral Relevant Orders Ambulatory referral to External Physical Therapy Mixed hyperlipidemia - Primary documented in this encounter Miscellaneous Notes * Assessment & Plan Note - Mamadou Calvillo DO - 11/25/2024 2:13 PM EDTAssociated Problem(s): Peripheral neuropathy With nerve testing that confirms the neuropathy - will have PT referral documented in this encounter Plan of Treatment Upcoming Encounters Date Type Department Care Team (Late st Contact Info) Description 12/11/2024 10:00 AM EDT Office Visit [facility] [address] [place] [address] William Perez DO [address] [address] [email or web address] Scheduled Referrals Name Type Priority Associated Diagnoses Orde r Schedule Ambulatory referral to External Physical Therapy Outpatient Referral Routine Peripheral polyneuropathy Ordered: 11/25/2024 documented as of this encounter Visit Diagnoses Diagnosis Mixed hyperlipidemia- Primary Peripheral polyneuropathy documented in this encounter Additional Health Concerns Assessment Noted Time PHQ-2 Depression Total Score: 0 12/10/19 24 9:22 AM EDT documented as of this encounter Care Teams Service Crew Supervisor Relationship Specialty Start Date End Date William Perez DO [address] [place] [address] [email or web address] PCP - General 03/12/14 William Perez DO [address] [place] [address], [address] [place] [address] [email or web address] Insurance Assigned Provider 06/01/23 Garret Colon MD [address] [place] [phone] [email or web address] Primary Oncologist Medical Oncology 01/26/20 documented as of this encounter Additional Source Comments The information contained in this document represents components of the legal health record. It is not the complete legal health record.[facility]
--- NOTE | 2024-11-27 09:39 | A.OFFVIS_ITS ---
Vital Signs 11/27/24 09:45 BP 120/70 Blood Pressure Location Lt brachial Position Sitting Pulse 92 Pulse Source Pulse Oximeter Pulse Oximetry (%) 99 Oxygen Delivery Method Room Air Intake Visit Reasons: 6 MO - DISCUSS CPAP Intake Note: Patient presents follow up GINA. No compliance(last compliance 12/18/23) Tumble Tailstock Turret Lathe Operator Required: No Accompanied by: Spouse Allergies No Known Allergies Allergy (Verified 11/27/24 09:43) HPI Comments Details: 68-yr-old male presents for follow-up visit. Patient is accompanied by a nurse who is filling in for his usual nurse, from his fci program, and sister. 07/21/2024, in-lab PSG: Patient did not sleep enough to complete the study. 10/12/2024, in-lab split-night PSG: Diagnostic portion: AHI 26 per hour with O2 jennifer 80%. Pap titration portion: Showed optimization of respiration and oxygen Matt levels at CPAP 10 cm H2O. After the sleep study, an order was sent to update his current BiPAP settings to CPAP 10 cm H2O. However, upon review of the [facility], the patient continues on BiPAP settings. I was able to adjust the settings to CPAP 10 cm H2O with EPR 3 during today's visit. Today, the patient states he is willing to use his PAP therapy more often. He would like to use a nasal mask, as he is going on his gomez again. The patient's sister reports that she has been told by staff that he is a bit more forgetful. There is concern, as his sister was recently diagnosed with dementia; however, it is unknown if there is a genetic component. Their father had Parkinson's in the 70s. Patient denies any interval seizure activity. Patient's states his mood is stable. Patient is overall doing well in his fci. He is continuing to do exercises with his physical therapist- using stationary bike or tricycle and going to [place] w/ his fci staff. Patient's sister notes that there are other sister, was recently diagnosed with dementia. [facility] Medical History (Updated 11/29/24 @ 21:04 by ZOË Parsons) Hypoxic brain injury Severe obstructive sleep apnea Moderate obstructive sleep apnea Myopia Hearing loss Intermittent explosive disorder Colon cancer Hyperlipidemia Melanoma CML (chronic myelocytic leukemia) Dandy Walker cyst Tension type headache Cervical spinal stenosis Polyneuropathy Seizure Surgical History History of laparoscopic cholecystectomy History of hydrocelectomy Family History Father HTN (hypertension) Hyperlipidemia Mother Cancer Social History Alcohol intake: never Patient Tobacco Use Status: Never used Tobacco Physical Exam Vital Signs: Last Vital Signs Pulse 92 11/27/24 09:45 BP 120/70 11/27/24 09:45 Pulse Ox 99 11/27/24 09:45 Oxygen Delivery Method Room Air 11/27/24 09:45 Const General: cooperative and no acute distress Resp Effort & Inspection: normal respiratory effort and able to speak in complete sentences Neuro Other: Alert and oriented with cognitive delay. Patient is able to follow the conversation and answer appropriately. Mild baseline dysarthria Sitting upright in wheelchair. 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 Code(s): G47.33 - Obstructive sleep apnea (adult) (pediatric) Category: Medical (4) Seizure: Comment: (hypoxic brain injury, dandy walker cyst) Code(s): R56.9 - Unspecified convulsions Category: Medical Plan Patient's usual nurse correctional counselor/case manager is Tasha Torres. ? Start CPAP 10 cm H2O with EPR 3. Mask fitting and supplies as ordered. May continue to use an eye mask or a chinstrap as needed when using CPA. When pt has to get up at night to use the BR, minimally disconnect his PAP tubing (and not the whole mask) to make it easier to reconnect the CPAP. Monitor cognition. Monitor seizures. Continue exercise program as tolerated Pt to follow-up in 6 months or sooner prn. ? Coding Level of Care Code Est Pt Level 3 (00685) Diagnoses Pervasive developmental disorder F84.9 Dandy Walker cyst Q03.1 Severe obstructive sleep apnea G47.33 Seizure R56.9
[2024-11-27 09:45] VITALS: BP 120/70; PULSE 92; O2SAT 99
--- OUTSIDE RECORDS SUMMARY | 2024-11-27 10:03 | XMS_ITS | Encounter Summary ---
Author Organization [facility] Address [address] [place] [address] Phone Care Team Providers Care Network Architect Manager Name Role Phone William Perez DO Primary Care Provider [phone] William Perez DO Unavailable Garret Colon MD Unavailable [phone] Glenny Cerda Unavailable [phone] Encounter Details Date Type Department Care Team (Late st Contact Info) Description 12/31/2022 Procedure Pass [facility], Ct Scan - [address] [address] Social History Tobacco Use Types Packs/Day Years Used Date Smoking Tobacco: Never Smokeless Tobacco: Never Alcohol Use Standard Drinks/Week Comments Yes 0 (1 standard drink = 0.6 oz pur e alcohol) Rare Education Answer Date Recorded Are you interested in more education? Not on rae e 06/22/2022 Are you concerned about learning? Not on file 06/22/2022 No 06/22/2022 No 06/22/2022 Digital Access Answer Date Recorded No 07/18/2022 No 07/18/2022 Reliable internet access at home? Not on file 07/18/2022 Device with a working camera? Not on file Sex and Gender Information Value Date Recorded Sex Assigned at Male 03/04/2017 9:35 AM EST Legal Sex Male 3:55 PM EST Gender Identity Male 03/04/2017 9:35 AM EST Sexual Orientation Choose not to disclose 2017 9:35 AM EST documented as of this encounter Functional Status * Calculated C-SSRS Risk Score (Lifetime/Recent) Answer Date of Assessment Author No Risk Indicated 12/31/2022 1:23 PM Niall Christian RN * [place] Suicide Severity Rating Scale (Screener/Recent Self-Report) Question Answer Date of Assessment Author 1. Wish to be (Past 1 Month) No 023 1:23 PM Niall Christian RN 2. Non-Specific Active Suici pal Thoughts (Past 1 Month) No 12/31/2022 1:23 PM Niall Christian RN 6. Suicidal Behavior (Lifetime) No 3 1:23 PM Niall Christian RN documented as of this encounter Plan of Treatment Upcoming Encounters Date Type Department Care Team (Late st Contact Info) Description 12/11/2024 10:00 AM EDT Office Visit [facility] [address] [place] [address] William Perez DO [address] [address] [email or web address] documented as of this encounter Visit Diagnoses Not on filedocumented in this encounter Additional Health Concerns Assessment Noted Time PHQ-2 Depression Total Score: 0 11/29/19 23 9:02 AM EDT documented as of this encounter Care Teams Network Architect Manager Relationship Specialty Start Date End Date William Perez DO [address] [place] [address] PCP - General 03/12/14 William Perez DO [address] [place] [address] Insurance Assigned Provider 06/01/23 Garret Colon MD [address] [place] [address] [email or web address] Primary Oncologist Medical Oncology 01/26/20 Glenny Cerda FNP [address] [place] [address] [email or web address] Nurse Practitioner Medical Oncology 05/22/22 09/28/24 documented as of this encounter Additional Source Comments The information contained in this document represents components of the legal health record. It is not the complete legal health record.[facility]
--- OUTSIDE RECORDS SUMMARY | 2024-11-27 10:03 | XMS_ITS | Encounter Summary ---
Author Organization [facility] Address [address] [place] [address] Phone Care Team Providers Care Interior Design Professional Name Role Phone William Perez DO Primary Care Provider William Perez DO Unavailable Garret Colon MD Unavailable [phone] Glenny CerdaP Unavailable [phone] Encounter Details Date Type Department Care Team (Late st Contact Info) Description 12/10/2016 Procedure Pass [facility] [address] [place] [address] Social History Tobacco Use Types Packs/Day Years Used Date Smoking Tobacco: Never Sex and Gender Information Value Date Recorded Sex Assigned at Male 03/04/2017 9:35 AM EST Legal Sex Male 3:55 PM EST Gender Identity Male 03/04/2017 9:35 AM EST Sexual Orientation Choose not to disclose 2017 9:35 AM EST documented as of this encounter Plan of Treatment Upcoming Encounters Date Type Department Care Team (Late st Contact Info) Description 12/11/2024 10:00 AM EDT Office Visit [facility] Medicine [address] [place], [place] [phone] William Perez DO [address] [place], [place] [phone] [email or web address] documented as of this encounter Visit Diagnoses [...] documented as of this encounter Care Teams Interior Design Professional Relationship Specialty Start Date End Date William Perez DO [address] [place] [address] [email or web address] PCP - General 03/12/14 William Perez DO [address] [place] [address] [email or web address] Insurance Assigned Provider 06/01/23 Garret Colon MD [address] [place] [address] [email or web address] Primary Oncologist Medical Oncology 01/26/20 Glenny Cerda FNP [address] [place] [address] [email or web address] Nurse Practitioner Medical Oncology 05/22/22 09/28/24 documented as of this encounter Additional Source Comments The information contained in this document represents components of the legal health record. It is not the complete legal health record.[facility]
--- OUTSIDE RECORDS SUMMARY | 2024-11-27 10:03 | XMS_ITS ---
Author Organization [facility] Address [address] [place] [id number] Phone Care Team Providers Care Computer Lab Aide Name Role Phone William Perez DO Primary Care Provider [phone] William Perez DO Unavailable Garret Colon MD Unavailable [phone] Active Problems Patient Care Coordination No te Formatting of this note migh t be different from the original. Height Problem Noted Date Diagnosed Date Loose stools 11/10/2024 Assessment & Plan (11/10/2024 10:31 AM EDT): Venkat presents for more recent loose stools and this is likely secondary to the fact that he has been without his cholestyramine. I refilled this today and send this to a different pharmacy as his previous pharmacy did not have this medication in stock. If there is an issue with supplying this medication we can try different med such as colesevelam. I informed him to call if there are any other issues or concerns. He understands and agrees. I have maintained a long-term relationship with the patient, overseeing the care of their loose stool. This has significantly influenced my decision-making and treatment plans during today's encounter. Cervicalgia 10/05/2024 Assessment & Plan (10/05/2024 11:28 AM EDT): Atraumatic left-sided neck pain with associated left-sided headaches without neurologic symptoms, no radiculopathy. Pain is not improved with Tylenol or heating pad usage. Given this we will pursue imaging with XR of the C-spine and refer to home physical therapy. I have also prescribed meloxicam 15 mg daily for 14 days to use in addition to the acetaminophen advised to take with food. Follow-up if not improved. Major depressive disorder, single episode, moder ate 04/20/2024 Assessment & Plan (06/01/2024 1:49 PM EDT): Stable on his Prozac. Assessment & Plan (04/20/2024 11:36 AM EST): Stable on his medication. I have maintained a long-term relationship with the patient, overseeing the care of their depression. This has significantly influenced my decision-making and treatment plans during today's encounter. Bilateral arm weakness 04/20/2024 Assessment & Plan (04/20/2024 11:32 AM EST): Venkat presents with his caretakers for decreased strength of the upper extremities bilaterally. Status post neck surgery for stenosis years ago. I ordered an x-ray to further investigate. I gave him exercises the front desk attendant to start on. I informed him to call if there are any other issues or concerns or if this gets worse. Follow- up in 6 weeks. He understands and agrees Right leg pain 04/20/2024 Assessment & Plan (04/20/2024 11:31 AM EST): Venkat presents for ongoing right leg pain. He will start physical therapy next month. He was seen by orthopedics and I also reviewed the x-ray that was done of the right knee showing arthritis. I refilled Voltaren gel-to be applied as directed and I informed him to call if there are any other issues or concerns if this gets worse. Follow-up in 6 weeks. He understands and agrees. Acute pain of right knee 03/19/2024 Assessment & Plan (03/19/2024 2:33 PM EST): Wolfgang presents for right knee pain-please see plan leg weakness for further detail-I will see him back in a month. He and his caretakers understand and agree to this plan of action. Weakness of both lower extremities 03/19/2024 Assessment & Plan (11/10/2024 10:30 AM EDT): eVnkat has weakness of the lower legs bilaterally-he is currently in his wheelchair. Well cared for at his long-term. Assessment & Plan (03/19/2024 2:33 PM EST): Venkat has weakness of both legs-right leg worse than left and this is likely secondary to his right knee pain which I suspect is arthritis. I ordered a repeat x-ray-last was done last year and I will update him with the results. I gave him exercises the front desk attendant to start on and I wrote for physical therapy. I also put a referral into Ortho for consult. I informed him and his caretakers to call if there are any other issues or concerns. Follow-up in a month. They understand and agree. Right foot pain 08/26/2023 Assessment & Plan (08/26/2023 10:59 AM EDT): Venkat presents for right ankle redness and pain-going on for the past week or so. There looks like to be the beginnings of a pressure sore. I advised that he follow-up with his car manager but in the meantime this was bandaged today-guidance given to use bandages to help decrease pressure on the site specifically donut bandages. If this gets worse I advised his caretakers to call. I did not order an x-ray at this time but if this gets worse I would consider this. Paperwork filled out today. They will call if there are any other issues or concerns. They understand and agree. Sleep apnea 07/02/2023 Fall 01/02/2023 Assessment & Plan (01/02/2023 11:17 AM EST): Venkat presents for a fall with his ccu nurse. He had a fall on 12/31/2022. He hit his head. I reviewed the notes from the ER as well as the image studies-no major issues. I informed him that the bruising to the left side of his face should improve with time. I informed him that he can take Tylenol as needed-I refilled the prescription today. He will call if there are any other issues or concerns-they understand and agree. Facial bruising, subsequent encounter 01/02/2023 Assessment & Plan (01/02/2023 11:18 AM EST): Bruising to left side of his face status post a fall on 12/31/2022. Seen in the ER on that day-reassuring image studies. I gave him guidance regarding symptomatic management and that this should improve with time but to call if there are any other issues or concerns. He understands and agrees. Medication refill 01/02/2023 Assessment & Plan (01/02/2023 11:18 AM EST): I refilled Venkat's Tylenol today-to be taken as directed. Rash and other nonspecific skin eruption 023 Assessment & Plan (11/13/2022 5:06 PM EDT): Virtual Visit Attestation Modality: interactive audio (phone only) Provider Location, state disclosed to patient: practice location Patient Location: home Patient State: [place] E&M Billing based on time ([id number]): Yes Total time spent on date of service (min): 4 Time spent with patient during visit (min): 6 I personally spent the total time as documented on care for this patient on the date of the encounter, of which the time spent with the patient during the encounter has been separately documented. I spoke to Jack-supervisor fabrication for Venkat today. I left a voicemail for Elle-the RN. He has a rash which seems to be improving with the steroid cream that he was given by the nurse practitioner at urgent care last week. I gave guidance to continue with this and to call and make appointment in office if the rash gets worse or if this does not improve by next week. Call if there are any other issues or concerns. He understands and agrees to this plan. Acquired unequal limb length 03/28/2022 Right foot drop 02/27/2022 Assessment & Plan (02/27/2022 11:35 AM EST): Venkat has a right-sided foot drop. He needs a new AFO. He also needs new shoes as well as low-profile inserts. My nurses will be queueing up a prescription from this time. Follow-up in 6 months for his annual physical. He understands and agrees. Screening for prostate cancer 11/08/2021 Assessment & Plan (11/08/2021 11:04 AM EDT): Venkat is due for PSA-he will get this done and I will update him with results. He understands and agrees. Encounter for PPD skin test reading 11/08/2021 Assessment & Plan (11/08/2021 11:04 AM EDT): Venkat is due for PPD plan-this was done today and his nurse will read this in 48 hours. Need for prophylactic vaccin ation and inoculation against influenza 11/08/2021 Assessment & Plan (11/10/2024 10:31 AM EDT): Venkat is due for a flu vaccine-he was in agreement with getting this done along with his staff members. This was given today in the office. No complications. They were appreciative. Assessment & Plan (11/08/2021 11:05 AM EDT): Venkat is due for a flu shot today-he was in agreement with this. This is given today in the office without complications. He was appreciative. Allergic rhinitis 07/13/2021 Assessment & Plan (07/13/2021 10:27 AM EDT): I changed Venkat's allergy medications around-i stopped the loratadine and started Zyrtec. I also increase the Flonase. Follow-up as needed. He will call if there are any other issues or concerns. Cough 12/12/2020 Assessment & Plan (07/13/2021 10:27 AM EDT): Venkat presents for cough with his ccu nurse. I had him go for a COVID and flu swab. I will update him with the results. This might be allergies and I did change some of his medication around to see if this will help. His lungs are clear and I gave him guidance to call if there are any other issues or concerns. Symptomatic management for now. They understand and agree. Assessment & Plan (12/12/2020 11:27 AM EDT): A virtual visit was used during the COVID-[address] of an in-person visit. This real-time interactive virtual clinical encounter was conducted using telephone-only technology from clinic or home office. The patient participated in the visit from home/temporary residence or other location as specified below. Consent for virtual care, including informing the patient that insurance will be billed, and that in-person care is available in case of emergencies or as needed otherwise, was discussed at the time of scheduling. Pt participated in visit from home. I spoke to ccu nurse today. He has had a wet cough for the past couple of days and is febrile. I want him to go for an x-ray thus I entered the order today. I will update him with the results. He has been tested negative for Covid recently but there has been pneumonia in the house recently thus I will be checking for this. I advised for symptomatic management for now. I advised him to call if things get worse or if there is any other issues or concerns. They understand and agree. Cirrhosis of liver without a scites, unspecified hepatic cirrhosis type 11/04/2020 Assessment & Plan (03/19/2024 2:32 PM EST): Stable lab work. Last GFR was 106. Assessment & Plan (08/26/2023 10:58 AM EDT): Stable-liver enzymes within normal limits on last check last month. Assessment & Plan (02/27/2022 11:35 AM EST): Stable-I reviewed his most recent liver enzymes. Assessment & Plan (07/13/2021 10:27 AM EDT): Stable-I am following his lab work. Assessment & Plan (11/04/2020 12:10 PM EDT): Stable-no active issues. Most recent CMP showing normal liver enzymes. Screening for condition 11/04/2020 Assessment & Plan (06/01/2024 1:49 PM EDT): Venkat is due for a repeat colonoscopy next month-I placed this order today. 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 Assessment & Plan (02/27/2022 11:34 AM EST): Stable. Assessment & Plan (11/04/2020 12:09 PM EDT): Stable -No active pain. He is undergoing PT. Pain of right heel 01/29/2019 Urinary incontinence without sensory awareness 0 07/24/2018 Assessment & Plan (07/24/2018 12:11 PM EDT): Venakt has been having more urinary incontinence and he has an appt with urology next month. 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 Since is he has no symptoms, he is asymptomatic at present. His long-term will call if there is any other issues. He and his staff understands and agrees. Grade I hemorrhoids 06/10/2018 Assessment & Plan (06/10/2018 10:17 AM EDT): 1st degree hemorrhoid noted-started on the suppository as directed. Working on diet at the long-term and a constipation regimen. Weakness of both legs 12/18/2017 Assessment & Plan (02/27/2022 11:35 AM EST): Venkat has weakness of the lower extremities bilaterally. He is in his wheelchair today. He needs new AFO, shoes and inserts. My nurses will be giving him a prescription for this. Assessment & Plan (12/18/2017 4:52 PM EDT): Wolfgang presents with his care takers for a face to face encounter for a wheel chair. He has been in his wheelchair since February 2016. He has not walked unassisted. He has assistance with all activities (bathing, dressing, and toileting) that require mobility. He is unable to use a cane or walker due to instability and decreased strength. He has a weight belt as well. He has decreased strength of his lower legs B/L. He is undergoing PT. He now requires a ultra-lightweight manual wheelchair as he has decreased strength and he will not be able to accomplish his MRADL's without this. He does not have the upper motor ability and mental capability to safely use a regular manual wheelchair. He does not ambulate without assistance. Choking in adult 07/23/2017 Assessment & Plan (07/23/2017 11:30 AM EDT): Wolfgang has been having issues with choking while eating and I will send him for a modified barium swallow and a speech evaluation. His long-term will call if there is any other issues. Medicare annual wellness visit, subsequent 07/23 Assessment & Plan (12/10/2023 9:33 AM EDT): Wolfgang Bright is a 68 y.o. year old male presenting for his annual medicare wellness exam. I reviewed the adult health questionnaire - filled out-today. he will go for his above lab work and I will update him with the results. he has a healthy diet and exercise regimen. he will follow up in a year for their annual medicare wellness exam. he understand and agrees. Assessment & Plan (11/28/2022 9:30 AM EDT): Wolfgang Bright is a 67 y.o. year old male presenting for his annual medicare wellness exam. I reviewed the adult health questionnaire -electronically filled out-today. I reviewed his most recent lab work from 09/2022. he has a healthy diet and exercise regimen. he will follow up in a year for their annual medicare wellness exam. he understand and agrees. Assessment & Plan (11/08/2021 11:04 AM EDT): Wolfgang Bright is a 65 y.o. year old male presenting for his annual medicare wellness exam. I reviewed the adult health questionnaire -electronically filled out-today. he will go for his above lab work and I will update him with the results. he has a healthy diet and exercise regimen. he will follow up in a year for their annual medicare wellness exam. he understand and agrees. Assessment & Plan (11/04/2020 12:10 PM EDT): Wolfgang Bright is a 64 y.o. year old male presenting with his ccu nurse and nurse for his annual medicare wellness exam. I reviewed the adult health update form today. he will go for his above lab work and I will update him with the results. he has a healthy diet and exercise regimen. he will follow up in a year for their annual medicare wellness exam. he understand and agrees. Assessment & Plan (07/24/2018 11:53 AM EDT): Wolfgang Bright is a 62 y.o. year old male presenting for his annual medicare wellness exam. I reviewed the adult health update form today. he will go for his above lab work and I will update him with the results. he has a healthy diet and exercise regimen. he will follow up in a year for their annual medicare wellness exam. he understand and agrees. Assessment & Plan (07/23/2017 11:31 AM EDT): Wolfgang Bright is a 61 y.o. year old male presenting for his annual medicare wellness exam. I reviewed the adult health update form today. he will go for his above lab work and I will update him with the results. he has a healthy diet and exercise regimen. he will follow up in a year for their annual medicare wellness exam. he understand and agrees. Colon cancer screening 07/23/2017 Assessment & Plan (07/23/2017 11:31 AM EDT): He is up to date with his colonoscopy, repeat due on 05/15/19. Anemia 03/26/2017 Assessment & Plan (06/10/2018 10:11 AM EDT): Venkat has anemia and I reviewed his last CBC in the hospital. I will repeat this lab work today. Assessment & Plan (07/23/2017 11:29 AM EDT): Wolfgang has anemia and he is taking his PO supplement as directed. Assessment & Plan (06/04/2017 11:36 AM EDT): Venkat has anemia and I reviewed his last lab work from 03/2017. His care team was advised to call Dr. Moreland and to get directive from her in regards to staying the course or trying IV supplementation. I signed the long-term paperwork today. Constipation 03/26/2017 Assessment & Plan (11/10/2024 10:30 AM EDT): No current issues-Venkat is having more loose stool-please see plan loose stools for further detail. Assessment & Plan (06/10/2018 10:11 AM EDT): He has constipation at times and he is getting his at home dosage of medication as needed. Assessment & Plan (06/04/2017 11:37 AM EDT): Venkat is not currently having issues with constipation. Depression 03/26/2017 GERD (gastroesophageal reflux disease) 8 Assessment & Plan (07/24/2018 11:54 AM EDT): Venkat is taking his medication as directed. Hearing loss 03/26/2017 History of colon cancer 03/26/2017 Hydrocele in adult 03/26/2017 Intermittent explosive disorder 03/26/2017 Iron deficiency 03/26/2017 Assessment & Plan (06/04/2017 11:39 AM EDT): Venkat has iron deficiency and he is taking his supplement as directed. Macrocytic anemia 03/26/2017 Intellectual disability 03/26/2017 Overview (04/16/2018): 2019R1.3 IMO Load Assessment & Plan (11/10/2024 10:12 AM EDT): Venkat is well cared for at his long-term. Assessment & Plan (07/24/2018 11:53 AM EDT): Venkat is well cared for at his long-term. Mixed hyperlipidemia 03/26/2017 Assessment & Plan (11/10/2024 10:29 AM EDT): Overall stable. Assessment & Plan (07/24/2018 11:55 AM EDT): Wolfgang Bright has hypercholesterolemia and he is taking the above medication as directed without any side effects. his most recent cholesterol labs were reviewed. he will follow up as directed. Assessment & Plan (07/23/2017 11:28 AM EDT): Wolfgang Bright has hypercholesterolemia and he is taking the above medication as directed without any side effects. He will go for the above lab work and I will update him with the long-term. he will follow up as directed. 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 Assessment & Plan (03/19/2024 2:31 PM EST): Stable-no recent seizures. He is taking his medication as directed. Assessment & Plan (12/10/2023 9:28 AM EDT): No recent seizures. Assessment & Plan (02/27/2022 11:34 AM EST): Venkat is taking his medication as directed. No recent seizure. Assessment & Plan (07/13/2021 10:27 AM EDT): Stable-he is taking his medication as directed. No issues. Assessment & Plan (11/04/2020 12:09 PM EDT): Venkat has a seizure disorder and he is taking his medication as directed. He is well cared for at his long-term. Assessment & Plan (07/24/2018 11:54 AM EDT): Venkat has a seizure disorder and he is taking his medication as directed. Assessment & Plan (05/28/2018 1:05 PM EDT): According to the patient's sister the patient has not had a seizure since puberty. -No seizure meds. Stenosis of cervical spine with myelopathy 03/26 Fall at home 03/05/2017 Assessment & Plan (03/05/2017 12:26 PM EST): Venkat had a fall at home on 02/18/17 and he went to the ED for this. I reviewed the CT scan of his head and neck, this showed severe arthritis of his neck but the CT scan of his head showed no issues noted. I reviewed his ED notes as well. I filled out the paperwork from his long-term today. He will call if there is any other concerns today. Arthritis 03/05/2017 Assessment & Plan (06/01/2024 1:49 PM EDT): Venkat has arthritis-he is currently getting physical therapy for his right knee- his right knee pains have improved. I reviewed his x-ray that was done recently showing arthritis. He will follow-up with Ortho-appointment later this month. I informed him and his caretakers to call if there are any other issues or concerns. They understand and agree. Assessment & Plan (03/05/2017 12:28 PM EST): Venkat has severe arthritis of his neck and I reviewed the CT results today. If he has any symptoms I would advise for an MRI. He will F/U with his surgeon as directed. Gastritis 12/17/2016 Overview (12/17/2016): On Omeprazole and iron Hx of GI blood loss Malignant melanoma of left u pper extremity including shoulder 12/17/2014 Overview (12/17/2016): S/p surgery, no further treatment, LILIAN Peripheral neuropathy 12/17/2014 Assessment & Plan (11/25/2024 2:13 PM EDT): With nerve testing that confirms the neuropathy - will have PT referral CML (chronic myelocytic leukemia) 12/17/2010 Overview (03/26/2017): On Gleevec with response Assessment & Plan (11/10/2024 10:29 AM EDT): Venkat has history of CML-he is on Gleevec. Doing well. Stable. Assessment & Plan (06/01/2024 1:48 PM EDT): Stable on his Gleevec. Assessment & Plan (12/10/2023 9:32 AM EDT): Venkat is taking his med as directed. I reviewed his last lab work. I have maintained a long-term relationship with the patient, overseeing the care of their CML. This has significantly influenced my decision-making and treatment plans during today's encounter. Assessment & Plan (08/26/2023 10:57 AM EDT): Stable-he is taking his Gleevec as directed. Assessment & Plan (02/27/2022 11:34 AM EST): Stable-he is taking his Gleevec as directed. He is followed by specialist. Assessment & Plan (11/08/2021 11:04 AM EDT): Stable-he is followed by his specialist. Assessment & Plan (07/13/2021 10:14 AM EDT): Stable on the gleevec- followed by his specialist. Assessment & Plan (07/24/2018 11:55 AM EDT): Venkat has CML and he is taking his gleevec as directed. Assessment & Plan (05/28/2018 1:03 PM EDT): Continue Gleevec daily as prescribed Assessment & Plan (07/23/2017 11:29 AM EDT): Wolfgang has CML and he is taking his above medication as directed. Assessment & Plan (06/04/2017 11:39 AM EDT): Venkat has CML and he is taking the Gleevec at night. He was advised to stay active as best he can. I signed his handicap placard today. Malignant neoplasm of colon 12/17/2008 Overview (03/26/2017): S/p surgery Received adjuvant Xeloda No XRT Assessment & Plan (06/01/2018 4:24 PM EDT): Last colonoscopy April 2017 Fever Assessment & Plan (06/02/2018 1:52 PM EDT): Patient treated for ESBL E. coli cystitis. Will finish 3 days of appropriate antibiotics today. There was a chest x-ray showing the possibility of a left sided pneumonia however it has been felt through his hospital course that there were no fevers or cough. Still no findings on exam. That being said he was treated with Rocephin, then Zosyn. Now Macrobid. The first 2 would have been reasonable choices and community-acquired pneumonia which he would not meet criteria for. Since being on the Macrobid he is a bit tachycardic. Since it is unlikely that the long-term is prepared to take him home on Saturday afternoon, I think it is reasonable to observe overnight as long as there is no fever or worsening leukocytosis he will be discharged to long-term tomorrow. Current Treatment and Therapy Plans IMATINIB* Plan Start Date:07/17/2017 Plan Provider:Areli Moreland DO Linked Problems CML (chronic myelocytic leuk emia) Treatment Medications imatinib (GLEEVEC) Past Treatment and Therapy Plans No past plan information found. Resolved Problems Problem Noted Date Diagnosed Date Resolved Date Frequent UTI 07/24/2018 06/01/2024 Assessment & Plan (07/24/2018 12:11 PM EDT): Venkat has been having frequent UTI's and he was given a referral to ID today. Acute cystitis without hematuria 07/04/2018 07/24/2018 Assessment & Plan (07/04/2018 3:36 PM EDT): Venkat was diagnosed with a UTI based on his HPI and discussing with his nurse. He was treated with macrobid today and I also wrote a referral to urology. He will call if there is any other issues. All understand and agree with this plan. UTI (urinary tract infection) 05/29/2018 06/01/2018 Assessment & Plan (05/31/2018 5:19 PM EDT): Since Zosyn was started patient has felt improved and fever has resolved. Initially admitted with presumed UTI, however E. coli ESBL along with coag negative staph. (Initially started on Rocephin, Susceptibility showed E. coli was not sensitive to Rocephin (. Renal ultrasound reassuring, postvoid residual requested Changed to Augmentin today
--- OUTSIDE RECORDS SUMMARY | 2024-11-27 10:03 | XMS_ITS | Encounter Summary ---
Author Organization [facility] Address [address] [facility] [address] [place] [address] Phone Care Team Providers Care Transitional Kindergarten Teacher Name Role Phone William Perez DO Primary Care Provider William Perez DO Unavailable Garret Colon MD Unavailable [phone] Glenny CerdaP Unavailable [phone] Encounter Details Date Type Department Care Team (Late st Contact Info) Description 12/10/2016 Procedure Pass [facility] Imaging [address] [place] [address] Social History Tobacco Use Types Packs/Day Years [...] 12/11/2024 10:00 AM EDT Office Visit [facility] Medicine [address] [place], [place] [phone] William Perez DO 234 [facility], [address] [place], [place] [id number] [email or web address] documented as of this encounter Visit Diagnoses [...] documented as of this encounter Care Teams Transitional Kindergarten Teacher Relationship Specialty Start Date End Date William Perez DO [address] [place] [address] [email or web address] PCP - General 03/12/14 William Perez DO [address] [place] [address] [email or web address] Insurance Assigned Provider 06/01/23 Garret Colon MD [address] [place] [address] [email or web address] Primary Oncologist Medical Oncology 01/26/20 Glenny Cerda FNP [address] [place] [address] [email or web address] Nurse Practitioner Medical Oncology 05/22/22 09/28/24 documented as of this encounter Additional Source Comments The information contained in this document represents components of the legal health record. It is not the complete legal health record.[facility]
--- OUTSIDE RECORDS SUMMARY | 2024-11-27 10:03 | XMS_ITS | Encounter Summary ---
Author Organization [email or web address] [facility] Address [address] [place] [address] Phone Care Team Providers Care Premium Representative Name Role Phone William Perez DO Primary Care Provider [phone] William Perez DO Unavailable Garret Colon MD Unavailable [phone] Glenny Cerda Unavailable [phone] Encounter Details Date Type Department Care Team (Late st Contact Info) Description 12/31/2022 Procedure Pass [facility], Ct Scan - [address] [address] Social History Tobacco Use Types Packs/Day Years [...] 12/31/2022 1:23 PM Niall Christian RN * [place] Suicide Severity Rating Scale (Screener/Recent Self-Report) Question [...] Description 12/11/2024 10:00 AM EDT Office Visit [facility] Medicine 234 [place] [address] William Perez DO [address] [address] [email or web address] documented as of this encounter Visit Diagnoses Not on filedocumented in this encounter Additional Health Concerns Assessment Noted Time PHQ-2 Depression Total Score: 0 11/29/19 23 9:02 AM EDT documented as of this encounter Care Teams Premium Representative Relationship Specialty Start Date End Date William Perez DO [address] [place] [address] PCP - General 03/12/14 William Perez DO [address] [place] [address] Insurance Assigned Provider 06/01/23 Garret Colon MD [address] [place] [address] [email or web address] Primary Oncologist Medical Oncology 01/26/20 Glenny Cerda FNP [address] [place] [address] [email or web address] Nurse Practitioner Medical Oncology 05/22/22 09/28/24 documented as of this encounter Additional Source Comments The information contained in this document represents components of the legal health record. It is not the complete legal health record.[facility]
--- OUTSIDE RECORDS SUMMARY | 2024-11-27 10:04 | XMS_ITS | Encounter Summary ---
Author Organization [employer] [facility] Address [address] [place] [address] Phone Care Team Providers Care Rubbing Bed Operator Name Role Phone William Perez DO Primary Care Provider [phone] William Perez DO Unavailable Garret Colon MD Unavailable [phone] Reason for Visit * Reason Onset Date Comments Follow Up Visit 11/19/2024 ED FUV + 11/18 + fall + unable to schedule Encounter Details Date Type Department Care Team ([facility] st Contact Info) Description 11/19/2024 Telephone [facility] [address] [place] [address] William Perez DO 234 [facility], [address] [place] [address] [email or web address] Follow Up Visit (ED FUV + 11/18 + fall + unable to schedule) Social History Tobacco Use Types Packs/Day Years [...] AM EST documented as of this encounter Progress Notes * Goodman Maldonadotarik - 11/19/2024 1:32 PM EDT Spoke w pt byproducts maker, scheduled ED follow up T 11/24 at 1:30pm with Dr. Calvillo * Carisa Shankar - 11/19/2024 10:57 AM EDT CD PEN Top Smart Phrases: Emergency Department (ED, ER) Appointment Booking Telephone Encounter 1.Appointment scheduled within 5 calendar days:YES/NO: no? 2.Virtual or in-person appointment: N/A 3.Information related to the patient ER/ED visit: A. Facility Name:? [facility] B. Date of ED Visit: 11/18? C. Reason for visit (Diagnosis/Symptoms):? Fall 4.Is the record of the Emergency Department visit in the chart: YES/NO: yes? a. IF NOT, patient was instructed to have records faxed to office, and to bring in a hard copy during the appointment. Central Support Correctional Program Specialist (Please do not reply to this user; this inbox is not monitored.) Thank you. documented in this encounter Plan of Treatment Upcoming Encounters Date Type Department Care Team (Late st Contact Info) Description 12/11/2024 10:00 AM EDT Office Visit [facility] Medicine [address] [place] [address] William Perez DO [address] [address] [email or web address] documented as of this encounter Visit Diagnoses Not on filedocumented in this encounter Additional Health Concerns Assessment Noted Time PHQ-2 Depression Total Score: 0 12/10/19 24 9:22 AM EDT documented as of this encounter Care Teams Rubbing Bed Operator Relationship Specialty Start Date End Date William Perez DO [address] [place] [address] [email or web address] PCP - General 03/12/14 William Perez DO [address] [place] [address] [email or web address] Insurance Assigned Provider 06/01/23 Garret Colon MD [address] [place] [address] [email or web address] Primary Oncologist Medical Oncology 01/26/20 documented as of this encounter Additional Source Comments The information contained in this document represents components of the legal health record. It is not the complete legal health record.[facility]
--- OUTSIDE RECORDS SUMMARY | 2024-11-27 10:04 | XMS_ITS | Encounter Summary ---
Author Organization [facility] Address [address] [place] [address] Phone Care Team Providers Care Process Specialist Name Role Phone William Perez DO Primary Care Provider [phone] William Perez DO Unavailable Garret Colon MD Unavailable [phone] Glenny Cerda Unavailable [phone] Encounter Details Date Type Department Care Team (Late Contact Info) Description 12/10/2016 Procedure Pass [facility] Imaging [address] [place] [address] Social History Tobacco Use Types Packs/Day Years Used Date Smoking Tobacco: Never Smokeless Tobacco: Never Alcohol Use Standard Drinks/Week Comments Yes 0 (1 standard drink = 0.6 oz pur e alcohol) Rare Sex and Gender Information Value Date Recorded Sex Assigned at Male 03/04/2017 9:35 AM EST Legal Sex Male 3:55 PM EST Gender Identity Male 03/04/2017 9:35 AM EST Sexual Orientation Choose not to disclose 2017 9:35 AM EST documented as of this encounter Plan of Treatment Upcoming Encounters Date Type Department Care Team (Late Contact Info) Description 12/11/2024 10:00 AM EDT Office Visit [facility] 234 [place] [address] William Perez DO [address] [address] [email or web address] documented as of this encounter Visit Diagnoses [...] documented as of this encounter Care Teams Process Specialist Relationship Specialty Start Date End Date William Perez DO [address] [address] [email or web address] PCP - General 03/12/14 William Perez DO [address] [place] [address] [email or web address] Insurance Assigned Provider 06/01/23 Garret Colon MD [address] [place] [address] [email or web address] Primary Oncologist Medical Oncology 01/26/20 Glenny Cerda FNP [address] [place] [address] [email or web address] Nurse Practitioner Medical Oncology 05/22/22 09/28/24 documented as of this encounter Additional Source Comments The information contained in this document represents components of the legal health record. It is not the complete legal health record.[facility]
--- OUTSIDE RECORDS SUMMARY | 2024-11-27 10:04 | XMS_ITS | Encounter Summary ---
Author Organization [facility] Address [address] [place] [address] Phone Care Team Providers Care Video Intern Name Role Phone William Perez DO Primary Care Provider [phone] William Perez DO Unavailable Garret Colon MD Unavailable [phone] Glenny Cerda Unavailable [phone] Encounter Details Date Type Department Care Team (Late st Contact Info) Description 11/07/2018 Procedure Pass [facility] Imaging [address] [place] [address] Social History Tobacco Use Types Packs/Day Years Used Date Smoking Tobacco: Never Smokeless Tobacco: Never Alcohol Use Standard Drinks/Week Comments No 0 (1 standard drink = 0.6 oz pur e alcohol) Sex and Gender Information Value Date Recorded Sex Assigned at Male 03/04/2017 9:35 AM EST Legal Sex Male 3:55 PM EST Gender Identity Male 03/04/2017 9:35 AM EST Sexual Orientation Choose not to disclose 2017 9:35 AM EST documented as of this encounter Plan of Treatment Upcoming Encounters Date Type Department Care Team (Late Contact Info) Description 12/11/2024 10:00 AM EDT Office Visit [facility] 234 [place] [address] William Perez DO 234 [facility] [address] [place] [address] [email or web address] documented as of this encounter Visit Diagnoses [...] documented as of this encounter Care Teams Video Intern Relationship Specialty Start Date End Date William Perez DO [address] [address] [email or web address] PCP - General 03/12/14 Willima Perez DO [address] [address] [email or web address] Insurance Assigned Provider 06/01/23 Garret Colon MD [address] [place] [address] [email or web address] Primary Oncologist Medical Oncology 01/26/20 Glenny Cerda FNP [address] [place] [address] [email or web address] Nurse Practitioner Medical Oncology 05/22/22 09/28/24 documented as of this encounter Additional Source Comments The information contained in this document represents components of the legal health record. It is not the complete legal health record.[facility]
--- OUTSIDE RECORDS SUMMARY | 2024-11-27 10:04 | XMS_ITS | Encounter Summary ---
Author Organization [employer] [facility] Address [address] [place] [address] Phone Care Team Providers Care Network Consultant Name Role Phone William Perez DO Primary Care Provider [phone] William Perez DO Unavailable Garret Colon MD Unavailable [phone] Encounter Details Date Type Department Care Team (Late st Contact Info) Description 10/27/2024 Orders Only [facility] Medical [facility] 234 [place] [address] Provider, MD Cheryl [address] [place] [address] Social History Tobacco Use Types Packs/Day Years [...] 2024 6:43 PM Preeti Pereira RN * [place] Suicide Severity Rating Scale (Screener/Recent Self-Report) Question Answer Date of Assessment Author 1. Wish to be (Past 1 Month) No 2024 6:43 PM India Olvera RN 2. Non-Specific Active Suici pal Thoughts (Past 1 Month) No 2024 6:43 PM EDT iDno Madsen, MARY 6. Suicidal Behavior (Lifetime) No 6:43 PM EDT Preeti Madsen, MARY documented as of this encounter Plan of Treatment Upcoming Encounters Date Type Department Care Team (Late st Contact Info) Description 12/11/2024 10:00 AM EDT Office Visit [facility] 234 [place] [address] William Perez DO [address] [address] documented as of this encounter Procedures Procedure Name Priority Date/Time Associated Diagnosis Comments HM COLONOSCOPY FOR RESULT ENTRY ONLY Routine 10/27/2024 10:10 AM EDT documented in this encounter Results * HM COLONOSCOPY FOR RESULT ENTRY ONLY (10/27/2024 10:10 AM EDT) us Historical Provider HEALTH MAINTENANCE Final Result documented in this encounter Visit Diagnoses Not on filedocumented in this encounter Additional Health Concerns Assessment Noted Time PHQ-2 Depression Total Score: 0 12/10/19 9:22 AM EDT documented as of this encounter Care Teams Network Consultant Relationship Specialty Start Date End Date William Perez DO [address] [address] PCP - General 03/12/14 William Perez DO 234 [facility] [address] [place] [address] Insurance Assigned Provider 06/01/23 Garret Colon MD [address] [place] [address] Primary Oncologist Medical Oncology 01/26/20 documented as of this encounter Additional Source Comments The information contained in this document represents components of the legal health record. It is not the complete legal health record.[facility]
--- OUTSIDE RECORDS SUMMARY | 2024-11-27 10:04 | XMS_ITS | Encounter Summary ---
Author Organization [employer] [facility] Address [address] [place] [address] Phone Care Team Providers Care Ct Scan Technician Name Role Phone William Perez DO Primary Care Provider [phone] William Perez DO Unavailable Garret Colon MD Unavailable [phone] Reason for Visit * Reason Onset Date Comments Weight Loss 10/27/2024 Encounter Details Date Type Department Care Team (Late st Contact Info) Description 10/27/2024 Telephone [facility] Medicine 234 [place], [place] [phone] William Perez DO 234 [facility] [address] [place], [place] [phone] [email or web address] Weight Loss Social History Tobacco Use Types Packs/Day Years [...] with a working camera? Not on file Intimate Partner Violence Answer Date R ecorded Are you denied basic needs s uch as food, clothing, or medical care? No 08/04/2024 In the past 12 months have y ou been in a relationship with a person who hurts, threatens, or tries to control you? No 08/04/2024 Are you denied basic needs s uch as food, clothing, or medical care? No 08/04/2024 In the past 12 months have y ou been in a relationship with a person who hurts, threatens, or tries to control you? No 08/04/2024 Sex and Gender Information Value Date Recorded Sex Assigned at Male 03/04/2017 9:35 AM EST Legal Sex Male 3:55 PM EST Gender Identity Male 03/04/2017 9:35 AM EST Sexual Orientation Choose not to disclose 2017 9:35 AM EST documented as of this encounter Progress Notes * Ade Ritter RN - 10/27/2024 2:17 PM EDT Spoke to Apryl, advised provider's message. States she just received a phone call from [facility], who did the colonoscopy, and they told her that the weight loss was normal and should regain the weight in the next 2-3 weeks. States they will continue to monitor weight and call back if no improvement. * William Perez DO - 10/27/2024 12:42 PM EDT Have the patient make an appointment with me in the next week or so for an evaluation. Thank you. * Jono Jeffries - 10/27/2024 11:37 AM EDT Apryl, an RN from the pt's [facility] called regarding the pt losing weight. Apryl stated that they weigh the pt every month, and from the beginning of September to the beginning of October, thept went from 147 lbs to 137.4 lbs. Apryl noted that the pt had a recent colonoscopy, which couldbe related, but stated that the [facility] wanted to know if the pt's PCP felt anything should be done about this. Please contact and advise. Central Support Wild Oyster Harvester (Please do not reply to this user; this inbox is not monitored.) Thank you. documented in this encounter Plan of Treatment Upcoming Encounters Date Type Department Care Team (Late st Contact Info) Description 12/11/2024 10:00 AM EDT Office Visit [facility] 234 [place] [address] William Perez DO [address] [address] [email or web address] documented as of this encounter Visit Diagnoses Not on filedocumented in this encounter Additional Health Concerns Assessment Noted Time PHQ-2 Depression Total Score: 0 12/10/19 9:22 AM EDT documented as of this encounter Care Teams Ct Scan Technician Relationship Specialty Start Date End Date William Perez DO [address] [place] [address] [email or web address] PCP - General 03/12/14 William Perez DO [address] [place] [address] Insurance Assigned Provider 06/01/23 Garret Colon MD [address] [place] [address] Primary Oncologist Medical Oncology 01/26/20 documented as of this encounter Additional Source Comments The information contained in this document represents components of the legal health record. It is not the complete legal health record.[facility]
--- OUTSIDE RECORDS SUMMARY | 2024-11-27 10:04 | XMS_ITS | Encounter Summary ---
Author Organization [employer] [facility] Address [address] [place] [address] Phone Care Team Providers Care Produce Production Team Member Name Role Phone William Perez DO Primary Care Provider [phone] William Perez DO Unavailable Garret Colon MD Unavailable [phone] Reason for Visit * Reason Comments Medication Refill Encounter Details Date Type Department Care Team (Late st Contact Info) Description 11/26/2024 Refill [facility] Medicine 234 [place], [place] [phone] William Perez DO 234 [facility], [address] [place], [place] [phone] [email or web address] Medication Refill Social History Tobacco Use Types Packs/Day Years [...] as of this encounter Progress Notes * Rochelle Rausch CNP - 11/26/2024 4:20 PM EDT Medication refilled via another encounter. Medication has already been approved. * Tierra Conley MA - 11/26/2024 4:02 PM EDT Rx Care Gap Status - Instructions for Clinical Staff (prescriber discretion applies): > Mismatch review guide > N/a - No action needed Visit Info Last visit: 11/25/2024 Mamadou Calvillo, - [facility] > Requested f/u: Not specified Upcoming visit: 12/11/2024 William Perez DO - Family Medicine [facility] ACTIONS TAKEN BY Tierra Conley MA - Criteria met. Gastrointestinal Rx Protocol (H2 blockers, PPIs, stool softeners, laxatives) - sennosides/docusate sodium Criteria met; renew for up to 12 months. Visit in the past 24 months: Yes documented in this encounter Plan of Treatment Upcoming Encounters Date Type Department Care Team (Late st Contact Info) Description 12/11/2024 10:00 AM EDT Office Visit [facility] [address] [place] [address] William Perez DO [address] [address] [email or web address] documented as of this encounter Visit Diagnoses Diagnosis Constipation Unspecified constipation documented in this encounter Additional Health Concerns Assessment Noted Time PHQ-2 Depression Total Score: 0 12/10/19 24 9:22 AM EDT documented as of this encounter Care Teams Produce Production Team Member Relationship Specialty Start Date End Date William Perez DO [address] [address] [email or web address] PCP - General 03/12/14 William Perez DO 234 [facility] 7 [place] [address] [email or web address] Insurance Assigned Provider 06/01/23 Garret Colon MD [address] [place] [address] [email or web address] Primary Oncologist Medical Oncology 01/26/20 documented as of this encounter Additional Source Comments The information contained in this document represents components of the legal health record. It is not the complete legal health record.[facility]
--- OUTSIDE RECORDS SUMMARY | 2024-11-27 10:04 | XMS_ITS | Encounter Summary ---
Author Organization [facility] Address [address] [place] [address] Phone Care Team Providers Care Reimbursement Rep Name Role Phone William Perez DO Primary Care Provider [phone] William Perez DO Unavailable Garret Colon MD Unavailable [phone] Glenny Cerda Unavailable Encounter Details Date Type Department Care Team (Late st Contact Info) Description 11/07/2018 Procedure Pass [facility] Imaging [address] [place] [address] Social History Tobacco Use Types Packs/Day Years [...] Description 12/11/2024 10:00 AM EDT Office Visit [facility] 234 [place] [address] William Perez DO 234 [facility] 7 [place] [address] [email or web address] documented as of [...] documented as of this encounter Care Teams Reimbursement Rep Relationship Specialty Start Date End Date William Perez DO [address] [address] [email or web address] PCP - General 03/12/14 William Perez DO [address] [address] [email or web address] Insurance Assigned Provider 06/01/23 Garret Colon MD [address] [place] [address] [email or web address] Primary Oncologist Medical Oncology 01/26/20 Glenny Cerda FNP [address] [place] [address] [email or web address] Nurse Practitioner Medical Oncology 05/22/22 09/28/24 documented as of this encounter Additional Source Comments The information contained in this document represents components of the legal health record. It is not the complete legal health record.[facility]
--- OUTSIDE RECORDS SUMMARY | 2024-11-27 10:04 | XMS_ITS | Encounter Summary ---
Author Organization [employer] [facility] Address [address] [place] [address] Phone Care Team Providers Care Automatic Transmission Mechanic Name Role Phone William Perez DO Primary Care Provider [phone] William Perez DO Unavailable Garret Colon MD Unavailable [phone] Glenny Cerda Unavailable [phone] Encounter Details Date Type Department Care Team (Late st Contact Info) Description 06/19/2024 Procedure Pass [facility], [address] [address] Social History Tobacco Use Types Packs/Day Years [...] as food, clothing, or medical care? No 07/13/2023 In the past 12 months have y ou been in a relationship with a person who hurts, threatens, or tries to control you? No 07/13/2023 Are you denied basic needs s uch as food, clothing, or medical care? No 07/13/2023 In the past 12 months have y ou been in a relationship with a person who hurts, threatens, or tries to control you? No 07/13/2023 Sex and Gender Information Value Date Recorded [...] Description 12/11/2024 10:00 AM EDT Office Visit [facility] 234 [place] [address] William Perez DO [address] [address] [email or web address] documented as of this encounter Visit Diagnoses Not on filedocumented in this encounter Additional Health Concerns Assessment Noted Time PHQ-2 Depression Total Score: 0 12/10/19 24 9:22 AM EDT documented as of this encounter Care Teams Automatic Transmission Mechanic Relationship Specialty Start Date End Date William Perez DO [address] [place] [id number] PCP - General 03/12/14 William Perez DO [address] [address] Insurance Assigned Provider 06/01/23 Garret Colon MD [address] [place] [address] [email or web address] Primary Oncologist Medical Oncology 01/26/20 Glenny Cerda FNP [address] [place] [address] [email or web address] Nurse Practitioner Medical Oncology 05/22/22 09/28/24 documented as of this encounter Additional Source Comments The information contained in this document represents components of the legal health record. It is not the complete legal health record.[facility]
--- OUTSIDE RECORDS SUMMARY | 2024-11-27 10:04 | XMS_ITS | Encounter Summary ---
Author Organization [facility] Address [address] [place] [address] Phone Care Team Providers Care Project Intern Name Role Phone William Perez DO Primary Care Provider [phone] William Perez DO Unavailable Garret Colon MD Unavailable [phone] Glenny Cerda Unavailable Encounter Details Date Type Department Care Team (Late Contact Info) Description 12/10/2016 Procedure Pass [facility] [address] [place] [address] Social History Tobacco Use Types Packs/Day Years [...] Description 12/11/2024 10:00 AM EDT Office Visit [facility] 234 [place] [address] William Perez DO [address] [address] [email or web address] documented as of this encounter Visit Diagnoses [...] documented as of this encounter Care Teams Project Intern Relationship Specialty Start Date End Date William Perez DO [address] [address] [email or web address] PCP - General 03/12/14 William Perez DO [address] [place] [address] [email or web address] Insurance Assigned Provider 06/01/23 Garret Colon MD [address] [place] [address] [email or web address] Primary Oncologist Medical Oncology 01/26/20 Glenny Cerda FNP [address] [place] [address] [email or web address] Nurse Practitioner Medical Oncology 05/22/22 09/28/24 documented as of this encounter Additional Source Comments The information contained in this document represents components of the legal health record. It is not the complete legal health record.[facility]
--- OUTSIDE RECORDS SUMMARY | 2024-11-27 10:04 | XMS_ITS | Encounter Summary ---
Author Organization [facility] Address [address] [place] [address] Phone Care Team Providers Care Dip Guider Stoves Name Role Phone William Perez DO Primary Care Provider [phone] William Perez DO Unavailable Garret Colon MD Unavailable [phone] Encounter Details Date Type Department Care Team (Late st Contact Info) Description 2024 Procedure Pass [facility], Ct Scan - [address] [address] Social History Tobacco Use Types Packs/Day Years [...] Risk Indicated 2024 6:43 PM EDT Preeti Nieto RN * Haskell Suicide Severity Rating Scale (Screener/Recent Self-Report) Question Answer Date of Assessment Author 1. Wish to be (Past 1 Month) No 2024 6:43 PM MILYT India Madsen RN 2. Non-Specific Active Suici pal Thoughts (Past 1 Month) No 2024 6:43 PM Dino Olvera RN 6. Suicidal Behavior (Lifetime) No 5 6:43 PM EDT Preeti Madsen RN documented as of this encounter Plan of Treatment Upcoming Encounters Date Type Department Care Team (Late st Contact Info) Description 12/11/2024 10:00 AM EDT Office Visit [facility] [address] [place] [address] William Perez DO 234 [facility] 7 [place] [address] [email or web address] documented as of this encounter Visit Diagnoses Not on filedocumented in this encounter Additional Health Concerns Assessment Noted Time PHQ-2 Depression Total Score: 0 12/10/19 24 9:22 AM EDT documented as of this encounter Care Teams Dip Guider Stoves Relationship Specialty Start Date End Date William Perez DO [address] [address] [email or web address] PCP - General 03/12/14 William Perez DO [address] [place] [address] [email or web address] Insurance Assigned Provider 06/01/23 Garret Colon MD [address] [place] [address] [email or web address] Primary Oncologist Medical Oncology 01/26/20 documented as of this encounter Additional Source Comments The information contained in this document represents components of the legal health record. It is not the complete legal health record.[facility]
--- OUTSIDE RECORDS SUMMARY | 2024-11-27 10:04 | XMS_ITS | Encounter Summary ---
Author Organization [facility] Address [address] [place] [address] Phone Care Team Providers Care Stock Cutter Name Role Phone William Perez DO Primary Care Provider [phone] William Perez DO Unavailable Garret Colon MD Unavailable [phone] Glenny Cerda BIOLOGICAL TECHNICIAN Unavailable [phone] Reason for Referral * MRI/CAT Scan - Closed Specialty Diagnoses / Procedures Referred By Sarai martinez Referred To Contact Radiology Diagnoses Cervical disc disorder with myelopathy, unspecified cervical region Procedures MRI Cervical Spine Richard Canas MD [address] [place] [phone] Phone: tel: fax: [email or web address] Referral ID Status Reason Start Date Expiration Date Visits Re quested Visits Authorized [id number] Closed 06/19/2024 06/19/2025 1 1 Encounter Details Date Type Department Care Team (Latest Contact Info) Description 06/19/2024 Transcribe Orders [facility] Department [address] [place] [address] Richard Canas MD [address] [place] [phone] [email or web address] Cervical disc disorder with myelopathy, unspecified cervical region (Primary Dx) Social History Tobacco Use Types Packs/Day Years [...] 12/11/2024 10:00 AM EDT Office Visit [facility] [address] [place] [address] William Perez DO 234 [facility], [address] [place] [address] documented as of this encounter Results * MRI CERVICAL SPINE (NEURO) FOCUS WITHOUT CONTRAST (07/10/2024 4:15 PM EDT) [facility] IMG GYM ATTENDANT COMMENT 2. Prominent bilateral palatine tonsils, progressed since prior MRI from June 2023. Correlate with direct visualization and correlation with laboratory values. [facility] Anatomical Region Laterality Modality C-spine Magnetic Resonan ce 07/15/2024 8:54 AM EDT Impressions 07/15/2024 9:01 AM EDT 1. Moderate multilevel cervical spondylosis, not appreciably changed since prior study from 2020. Findings are most notable for severe right foraminal narrowing at C3- C4 and C4-C5. 2. Prominent bilateral palatine tonsils, progressed since prior MRI from June 2023. Correlate with direct visualization and correlation with laboratory values. A clinically significant result was initiated on 07/15/2024 9:01 AM, Message ID [id number]. Narrative 07/15/2024 9:01 AM EDT MRI CERVICAL SPINE (NEURO) FOCUS WITHOUT CONTRAST Referring clinician's provided indication for this examination in Epic: Outside Radiology Order; cervical disc disorder TECHNIQUE: MRI CERVICAL SPINE (NEURO) FOCUS WITHOUT CONTRAST Multi-sequence, multi-planar MRI of the cervical spine was performed without intravenous contrast. COMPARISON: MRI CERVICAL/THORACIC/LUMBAR SPINE WITH AND WITHOUT CONTRAST ; MRI NECK WITH AND WITHOUT CONTRAST FINDINGS: CERVICAL SPINE: Alignment and Vertebrae: Exaggerated lumbar lordosis. No compression fracture. Marrow: No bone marrow replacing lesion. Discs and Endplates: Normal intervertebral disc heights and signal. Spinal Cord: Focal myelomalacia at the C4 level, unchanged. 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 Prominent bilateral palatine tonsils, progressed since prior MRI from June 2023. Findings by level (compared to prior spine MRI from 12/01/2020): C2-C3: No significant spinal canal or foraminal narrowing. C3-C4: Focal myomalacia of the cervical cord, without high-grade canal stenosis on the current study. There is bilateral uncovertebral and facet arthropathy, resulting in moderate left and severe right neural foraminal narrowing. Findings are similar to prior. C4-C5: There is bilateral uncovertebral and facet arthropathy, right greater than left, resulting in mild left and severe right neural foraminal narrowing. Findings are similar to prior. C5-C6: There is a posterior disc osteophyte complex, resulting in mild spinal canal narrowing, with partial effacement of the ventral CSF space but no cord remodeling or cord signal abnormality. There is bilateral uncovertebral and facet arthropathy, resulting in mild bilateral neural foraminal narrowing. C6-C7: There is a posterior disc osteophyte complex, resulting in mild spinal canal narrowing, with partial effacement of the ventral CSF space but no cord remodeling or cord signal abnormality. There is bilateral uncovertebral and facet arthropathy, resulting in mild bilateral neural foraminal narrowing. C7-T1: Negative Procedure Note Calderon Rosario MD - 07/15/2024 MRI CERVICAL SPINE (NEURO) FOCUS WITHOUT CONTRAST Referring clinician's provided indication for this examination in Epic:Outside Radiology Order; cervical disc disorder TECHNIQUE: MRI CERVICAL SPINE (NEURO) FOCUS WITHOUT CONTRAST Multi-sequence, multi-planar MRI of the cervical spine was performedwithout intravenous contrast. COMPARISON: MRI CERVICAL/THORACIC/LUMBAR SPINE WITH AND WITHOUT [id number]; MRI NECK WITH AND WITHOUT CONTRAST FINDINGS: CERVICAL SPINE: Alignment and Vertebrae: Exaggerated lumbar lordosis. No compressionfracture. Marrow: No bone marrow replacing lesion. Discs and Endplates: Normal intervertebral disc heights and signal. Spinal Cord: Focal myelomalacia at the C4 level, unchanged. 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 Prominent bilateral palatine tonsils, progressed since prior MRI from June2023. Findings by level (compared to prior spine MRI from 12/01/2020): C2-C3: No significant spinal canal or foraminal narrowing. C3-C4: Focal myomalacia of the cervical cord, without high-grade canalstenosis on the current study. There is bilateral uncovertebral and facetarthropathy, resulting in moderate left and severe right neural foraminalnarrowing. Findings are similar to prior. C4-C5: There is bilateral uncovertebral and facet arthropathy, rightgreater than left, resulting in mild left and severe right neuralforaminal narrowing. Findings are similar to prior. C5-C6: There is a posterior disc osteophyte complex, resulting in mildspinal canal narrowing, with partial effacement of the ventral CSF spacebut no cord remodeling or cord signal abnormality. There is bilateral uncovertebral and facet arthropathy, resulting inmild bilateral neural foraminal narrowing. C6-C7: There is a posterior disc osteophyte complex, resulting in mildspinal canal narrowing, with partial effacement of the ventral CSF spacebut no cord remodeling or cord signal abnormality. There is bilateral uncovertebral and facet arthropathy, resulting inmild bilateral neural foraminal narrowing. C7-T1: Negative IMPRESSION: 1. Moderate multilevel cervical spondylosis, not appreciably changedsince prior study from 2020. Findings are most notable for severe rightforaminal narrowing at C3- C4 and C4-C5. 2. Prominent bilateral palatine tonsils, progressed since prior MRI fromMay 2023. Correlate with direct visualization and correlation withlaboratory values. A clinically significant result was initiated on 07/15/2024 9:01 AM,Message ID [id number]. Richard Canas MD IMG MR XSPECIALTY Final Result documented in this encounter Visit Diagnoses Diagnosis Cervical disc disorder with myelopathy, unspecified cervical region- Primary Cervical disc disorder with myelopathy, unspecified cervical region documented in this encounter Additional Health Concerns Assessment Noted Time PHQ-2 Depression Total Score: 0 12/10/19 24 9:22 AM EDT documented as of this encounter Care Teams Stock Cutter Relationship Specialty Start Date End Date William Perez DO [address] [place] [address] PCP - General 03/12/14 William Perez DO [address] [address] Insurance Assigned Provider 06/01/23 Garret Colon MD [address] [place] [address] [email or web address] Primary Oncologist Medical Oncology 01/26/20 Glenny Cerda FNP [address] [place] [address] [email or web address] Nurse Practitioner Medical Oncology 05/22/22 09/28/24 documented as of this encounter Additional Source Comments The information contained in this document represents components of the legal health record. It is not the complete legal health record.[facility]
--- OUTSIDE RECORDS SUMMARY | 2024-11-27 10:04 | XMS_ITS | Encounter Summary ---
Author Organization [facility] Address [address] [place] [address] Phone Care Team Providers Care Seaman Officer Name Role Phone William Perez DO Primary Care Provider [phone] William Perez DO Unavailable Garret Colon MD Unavailable [phone] Glenny Cerda Unavailable [phone] Encounter Details Date Type Department Care Team (Late Contact Info) Description 12/10/2016 Procedure Pass [facility] [address] [place] [address] Social History Tobacco Use Types Packs/Day Years [...] Description 12/11/2024 10:00 AM EDT Office Visit [facility] [address] [place] [address] William Perez DO [address] [address] [email or web address] documented as of this encounter Visit Diagnoses [...] documented as of this encounter Care Teams Seaman Officer Relationship Specialty Start Date End Date William Perez DO [address] [address] [email or web address] PCP - General 03/12/14 William Perez DO [address] [place] [address] [email or web address] Insurance Assigned Provider 06/01/23 Garret Colon MD [address] [place] [address] [email or web address] Primary Oncologist Medical Oncology 01/26/20 Glenny Cerda FNP [address] [place] [address] [email or web address] Nurse Practitioner Medical Oncology 05/22/22 09/28/24 documented as of this encounter Additional Source Comments The information contained in this document represents components of the legal health record. It is not the complete legal health record.[facility]
--- OUTSIDE RECORDS SUMMARY | 2024-11-27 10:04 | XMS_ITS | Encounter Summary ---
Author Organization [facility] Address [address] [place] [address] Phone Care Team Providers Care .Net Developer Name Role Phone William Perez DO Primary Care Provider [phone] William Perez DO Unavailable Garret Colon MD Unavailable [phone] Glenny Cerda Unavailable Encounter Details Date Type Department Care Team (Late st Contact Info) Description 11/07/2018 Procedure Pass [facility] [address] [place] [address] Social History Tobacco Use Types Packs/Day Years [...] AM EDT Office Visit [facility] 234 [place] [address] William Perez DO 234 [facility] 7 [place] [address] [email or web address] documented as of [...] documented as of this encounter Care Teams .Net Developer Relationship Specialty Start Date End Date William Perez DO [address] [address] [email or web address] PCP - General 03/12/14 William Perez DO [address] [address] [email or web address] Insurance Assigned Provider 06/01/23 Garret Colon MD [address] [place] [address] [email or web address] Primary Oncologist Medical Oncology 01/26/20 Glenny Cerda FNP [address] [place] [address] [email or web address] Nurse Practitioner Medical Oncology 05/22/22 09/28/24 documented as of this encounter Additional Source Comments The information contained in this document represents components of the legal health record. It is not the complete legal health record.[facility]
--- OUTSIDE RECORDS SUMMARY | 2024-11-27 10:04 | XMS_ITS | Encounter Summary ---
Author Organization [facility] Address [address] [place] [address] Phone Care Team Providers Care Abattoir Supervisor Name Role Phone William Perez DO Primary Care Provider [phone] William Perez DO Unavailable Garret Colon MD Unavailable [phone] Glenny Cerda Unavailable Encounter Details Date Type Department Care Team (Late Contact Info) Description 12/10/2016 Procedure Pass [facility] [address] [place] [address] Social History Tobacco Use Types Packs/Day Years [...] Description 12/11/2024 10:00 AM EDT Office Visit [facility] 234 [place] [address] William Perez DO [address] [address] [email or web address] documented as of this encounter Visit Diagnoses [...] documented as of this encounter Care Teams Abattoir Supervisor Relationship Specialty Start Date End Date William Perez DO [address] [address] [email or web address] PCP - General 03/12/14 William Perez DO [address] [place] [address] [email or web address] Insurance Assigned Provider 06/01/23 Garret Colon MD [address] [place] [address] [email or web address] Primary Oncologist Medical Oncology 01/26/20 Glenny Cerda FNP [address] [place] [address] [email or web address] Nurse Practitioner Medical Oncology 05/22/22 09/28/24 documented as of this encounter Additional Source Comments The information contained in this document represents components of the legal health record. It is not the complete legal health record.[facility]
--- OUTSIDE RECORDS SUMMARY | 2024-11-27 10:04 | XMS_ITS | Encounter Summary ---
Author Organization [facility] Address [address] [place] [address] Phone Care Team Providers Care Inside Account Representative Name Role Phone William Perez DO Primary Care Provider [phone] William Perze DO Unavailable aGrret Colon MD Unavailable [phone] Glenny Cerda Unavailable Encounter Details Date Type Department Care Team (Late st Contact Info) Description 11/07/2018 Procedure Pass [facility] [address] [place] [address] Social History Tobacco Use Types Packs/Day Years [...] Description 12/11/2024 10:00 AM EDT Office Visit [facility] [address] [place] [address] William Perez DO 234 [facility] 7 [place] [address] [email or web address] documented as of this encounter Visit Diagnoses [...] documented as of this encounter Care Teams Inside Account Representative Relationship Specialty Start Date End Date William Perez DO [address] [address] [email or web address] PCP - General 03/12/14 William Perez DO [address] [address] [email or web address] Insurance Assigned Provider 06/01/23 Garret Colon MD [address] [place] [address] [email or web address] Primary Oncologist Medical Oncology 01/26/20 Glenny Cerda FNP [address] [place] [address] [email or web address] Nurse Practitioner Medical Oncology 05/22/22 09/28/24 documented as of this encounter Additional Source Comments The information contained in this document represents components of the legal health record. It is not the complete legal health record.[facility]
--- OUTSIDE RECORDS SUMMARY | 2024-11-27 10:04 | XMS_ITS | Encounter Summary ---
Author Organization [facility] Address [address] [place] [address] Phone Care Team Providers Care Deposition Operator Name Role Phone William Perez DO Primary Care Provider [phone] William Perez DO Unavailable Garret Colon MD Unavailable [phone] Glenny Cerda Unavailable Encounter Details Date Type Department Care Team (Late Contact Info) Description 12/10/2016 Procedure Pass [facility] [address] [place] [address] Social History Tobacco Use Types Packs/Day Years [...] Description 12/11/2024 10:00 AM EDT Office Visit [facility] 234 [place] [address] William Perez DO [address] [address] [email or web address] documented as of this [...] documented as of this encounter Care Teams Deposition Operator Relationship Specialty Start Date End Date William Perez DO [address] [address] [email or web address] PCP - General 03/12/14 William Perez DO [address] [place] [address] [email or web address] Insurance Assigned Provider 06/01/23 Garret Colon MD [address] [place] [address] [email or web address] Primary Oncologist Medical Oncology 01/26/20 Glenny Cerda FNP [address] [place] [address] [email or web address] Nurse Practitioner Medical Oncology 05/22/22 09/28/24 documented as of this encounter Additional Source Comments The information contained in this document represents components of the legal health record. It is not the complete legal health record.[facility]
--- OUTSIDE RECORDS SUMMARY | 2024-11-27 10:04 | XMS_ITS | Encounter Summary ---
Author Organization [facility] Address [address] [place] [address] Phone Care Team Providers Care Industrial Sweeper Cleaner Name Role Phone William Perez DO Primary Care Provider [phone] William Perez DO Unavailable Garret Colon MD Unavailable [phone] Glenny Cerda Unavailable Encounter Details Date Type Department Care Team (Late Contact Info) Description 12/10/2016 Procedure Pass [facility] [address] [place] [address] Social History Tobacco Use Types Packs/Day Years [...] Description 12/11/2024 10:00 AM EDT Office Visit [facility] [address] [place] [address] William Perez DO [address] [address] [email or web address] documented as of this [...] documented as of this encounter Care Teams Industrial Sweeper Cleaner Relationship Specialty Start Date End Date William Perez DO [address] [address] [email or web address] PCP - General 03/12/14 William Perez DO [address] [place] [address] [email or web address] Insurance Assigned Provider 06/01/23 Garret Colon MD [address] [place] [address] [email or web address] Primary Oncologist Medical Oncology 01/26/20 Glenny Cerda FNP [address] [place] [address] [email or web address] Nurse Practitioner Medical Oncology 05/22/22 09/28/24 documented as of this encounter Additional Source Comments The information contained in this document represents components of the legal health record. It is not the complete legal health record.[facility]
--- OUTSIDE RECORDS SUMMARY | 2024-11-27 10:05 | XMS_ITS | Encounter Summary ---
Author Organization [facility] Address [address] [place] [address] Phone Care Team Providers Care Automatic Profile Sander Operator Name Role Phone William Perez DO Primary Care Provider [phone] William Perez DO Unavailable Garret Colon MD Unavailable [phone] Glenny Cerda Unavailable [phone] Encounter Details Date Type Department Care Team (Late Contact Info) Description 12/10/2016 Procedure Pass [facility] [address] [place] [address] Social History Tobacco Use Types Packs/Day Years [...] Description 12/11/2024 10:00 AM EDT Office Visit [facility] [address] [place] [address] William Perez DO [address] [address] [email or web address] documented as of this encounter Visit Diagnoses [...] as of this encounter Care Teams Automatic Profile Sander Operator Relationship Specialty Start Date End Date William Perez DO [address] [address] [email or web address] PCP - General 03/12/14 William Perez DO [address] [place] [address] [email or web address] Insurance Assigned Provider 06/01/23 Garret Colon MD [address] [place] [address] [email or web address] Primary Oncologist Medical Oncology 01/26/20 Glenny Cerda FNP [address] [place] [address] [email or web address] Nurse Practitioner Medical Oncology 05/22/22 09/28/24 documented as of this encounter Additional Source Comments The information contained in this document represents components of the legal health record. It is not the complete legal health record.[facility]
--- OUTSIDE RECORDS SUMMARY | 2024-11-27 10:05 | XMS_ITS | Encounter Summary ---
Author Organization [facility] Address [address] [place] [address] Phone Care Team Providers Care Terrazzo Tile Maker Name Role Phone William Perez DO Primary Care Provider William Perez DO Unavailable Garret Colno MD Unavailable [phone] Glenny Cerda Unavailable [phone] Encounter Details Date Type Department Care Team (Late st Contact Info) Description 07/12/2024 Procedure Pass [facility], [address] [address] Social History Tobacco Use Types Packs/Day Years [...] Description 12/11/2024 10:00 AM EDT Office Visit [facility] [address] [place] [address] William Perez DO [address] [address] [email or web address] documented as of this encounter Visit Diagnoses Not on filedocumented in this encounter Additional Health Concerns Assessment Noted Time PHQ-2 Depression Total Score: 0 12/10/19 24 9:22 AM EDT documented as of this encounter Care Teams Terrazzo Tile Maker Relationship Specialty Start Date End Date William Perez DO [address] [place] [address] PCP - General 03/12/14 William Perez DO [address] [address] Insurance Assigned Provider 06/01/23 Garret Colon MD [address] [place] [address] [email or web address] Primary Oncologist Medical Oncology 01/26/20 Glenny Cerda FNP [address] [place] [address] [email or web address] Nurse Practitioner Medical Oncology 05/22/22 09/28/24 documented as of this encounter Additional Source Comments The information contained in this document represents components of the legal health record. It is not the complete legal health record.[facility]
--- OUTSIDE RECORDS SUMMARY | 2024-11-27 10:05 | XMS_ITS | Encounter Summary ---
Author Organization [employer] [facility] Address [address] [place] [address] [place] [address] Phone Care Team Providers Care Breaker Table Worker Name Role Phone William Perez DO Primary Care Provider [phone] William Perez DO Unavailable Garret Colon MD Unavailable [phone] Glenny Cerda Unavailable [phone] Encounter Details Date Type Department Care Team (Late st Contact Info) Description 08/17/2020 Procedure Pass [address] [place] [address] Social History Tobacco Use Types Packs/Day Years [...] 10:00 AM EDT Office Visit [facility] Medicine [address] [place] [address] William Perez DO [address] [address] [email or web address] documented as of this encounter Visit Diagnoses Not on filedocumented in this encounter Additional Health Concerns Infection Onset Date Last Indicated Resolved Time 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 05/30/2018 09/21/2022 1:23 AM EDT CoV-Risk 12/02/2020 12/02/2020 12/12/2020 1:22 AM EDT CoV-Risk 07/13/2021 07/13/2021 07/24/2021 1:22 AM EDT CoV-Presumed 07/26/2021 07/26/2021 08/16/2021 1:23 AM EDT Assessment Noted Time PHQ-2 Depression Total Score: 0 11/05/19 11:47 AM EDT documented as of this encounter Care Teams Breaker Table Worker Relationship Specialty Start Date End Date William Perez DO [address] [place] [address] [email or web address] PCP - General 03/12/14 William Perez DO [address] [place] [address] [email or web address] Insurance Assigned Provider 06/01/23 Garret Colon MD [address] [place] [address] [email or web address] Primary Oncologist Medical Oncology 01/26/20 Glenny Cerda FNP [address] [place] [address] [email or web address] Nurse Practitioner Medical Oncology 05/22/22 09/28/24 documented as of this encounter Additional Source Comments The information contained in this document represents components of the legal health record. It is not the complete legal health record.[facility]
--- OUTSIDE RECORDS SUMMARY | 2024-11-27 10:05 | XMS_ITS | Encounter Summary ---
Author Organization [facility] Address [address] [place] [address] [place] [phone] Phone Care Team Providers Care Personal Care Aide Name Role Phone William Perez DO Primary Care Provider [phone] William Perez DO Unavailable Garret Colon MD Unavailable [phone] Glenny Cerda MARKETING DESIGNER Unavailable [phone] Reason for Referral * MRI/CAT Scan - Closed Specialty Diagnoses / Procedures Referred By Contac t Referred To Contact Radiology Diagnoses Ataxic gait Procedures MRI Lumbar Spine Richard Canas MD [address] [place] [phone] Phone: tel: fax: [email or web address] Referral ID Status Reason Start Date Expiration Date Visits Re quested Visits Authorized [id number] Closed 09/10/2024 09/10/2025 1 1 * MRI/CAT Scan - Closed Specialty Diagnoses / Procedures Referred By Contac t Referred To Contact Radiology Diagnoses Ataxic gait Procedures MRI Thoracic Spine Richard Canas MD [address] [place] [phone] Phone: tel: fax: mailto:[email or web address] Referral ID Status Reason Start Date Expiration Date Visits Re quested Visits Authorized [id number] Closed 09/10/2024 09/10/2025 1 1 Encounter Details Date Type Department Care Team (Latest Contact Info) Description 09/10/2024 Transcribe Orders Virtual Department [address] [place] [address] Richard Canas MD [address] [place] [id number] [email or web address] Ataxic gait (Primary Dx) Social History Tobacco Use Types [...] Description 12/11/2024 10:00 AM EDT Office Visit [facility] [address] [place] [address] William Perez DO [address] [facility], [address] [place] [address] [email or web address] documented as of this encounter Results * MRI LUMBAR SPINE (NEURO) WITHOUT CONTRAST (10/09/2024 11:50 AM EDT) Anatomical Region Laterality Modality L-spine Magnetic Resonan ce 10/12/2024 12:3 4 PM EDT Impressions 10/12/2024 12:48 PM EDT 1. Mild degenerative disc disease changes of the thoracic spine without significant spinal canal stenosis or neural foramina narrowing. 2. Degenerative disc disease changes of the lumbar spine as detailed above, most prominent at L5-S1 level with right subarticular disc extrusion, resulting in mild posterior displacement of the traversing right S1 nerve root with possible impingement. Additionally, there is moderate to severe left and moderate right neural foramina narrowing at L5-S1 with probable impingement on the exiting left L5 nerve root. Clinical correlation for left L5 neuropathy and right S1 neuropathy is recommended. Overall, degenerative disc disease changes of the lumbar spine have not significantly changed compared to prior study. Narrative 10/12/2024 12:48 PM EDT MRI THORACIC SPINE (NEURO) WITHOUT CONTRAST, MRI LUMBAR SPINE (NEURO) WITHOUT CONTRAST Referring clinician's provided indication for this examination in Epic: Outside Radiology Order; ataxic gait TECHNIQUE: MRI THORACIC SPINE (NEURO) WITHOUT CONTRAST, MRI LUMBAR SPINE (NEURO) WITHOUT CONTRAST Multi-sequence, multi-planar MRI of the thoracic spine was performed without intravenous contrast. Multi-sequence, multi-planar MRI of the lumbar spine was performed without intravenous contrast. COMPARISON: MRI CERVICAL/THORACIC/LUMBAR SPINE WITH AND WITHOUT CONTRAST FINDINGS: THORACIC SPINE: Alignment and Vertebrae: There is exaggerated thoracic kyphosis. There is no spondylolisthesis. There is mild anterior wedging of T6 vertebral body, unchanged compared to prior study. Mild anterior wedging of T11 vertebral body associated with a Schmorl's node along the superior endplate is also unchanged. No new acute compression fracture is identified. Marrow: Bone marrow signal is heterogeneous without evidence of focal destructive osseous lesions. Discs and Endplates: There are mild degenerative disc disease changes of the thoracic spine as evidenced by anterior osteophyte formation. There is no significant spinal canal stenosis or neural foramina narrowing. Spinal Cord: Normal. No spinal cord compression or signal abnormality. Soft Tissue: No prevertebral edema. The paraspinal musculature is unremarkable. Other Findings: There is a prominent CSF density structure along the posterior aspect of cerebellum and hypoplasia of the vermis, better evaluated on the prior CT head dated December 31, 2022. LUMBAR SPINE: Alignment and Vertebrae: There is normal lumbar lordosis. There is no spondylolisthesis. Vertebral body heights are maintained without evidence of compression fracture. Marrow: No focal aggressive osseous lesions are identified. There is a bone island in L2 vertebral body, unchanged. Discs and Endplates: There is disc desiccation and disc height loss in the lower lumbar spine, most prominent at L3-L4 and L5-S1 levels. Conus: Conus medullaris terminates at L1-L2. The cauda equina nerve roots are unremarkable. Soft Tissues: There are several subcentimeter renal cysts bilaterally. The visualized vertebra joint is otherwise unremarkable. The paraspinal musculature is unremarkable. Other Findings: None. Findings by level: T12-L1: No spinal or foraminal stenosis. L1-L2: No spinal or foraminal stenosis. L2-L3: No spinal or foraminal stenosis. L3-L4: There is mild diffuse disc bulge with bilateral facet hypertrophy and mild ligamentum flavum thickening, resulting in mild spinal canal stenosis and mild bilateral neural foramina narrowing. Overall, degenerative disc disease changes appear similar compared to prior study. L4-L5: Mild bilateral facet hypertrophy. No significant spinal canal stenosis or neural foramina narrowing. L5-S1: Mild diffuse disc bulge with superimposed right subarticular disc extrusion, resulting in narrowing of right subarticular zone. There is mild posterior displacement of the traversing right S1 nerve root with possible impingement, unchanged. There is moderate to severe left and moderate right neural foramina narrowing. There is probable impingement on the exiting left L5 nerve root, unchanged. Procedure Note Dorota Black MD - 10/12/2024 MRI THORACIC SPINE (NEURO) WITHOUT CONTRAST, MRI LUMBAR SPINE (NEURO)WITHOUT CONTRAST Referring clinician's provided indication for this examination in Epic:Outside Radiology Order; ataxic gait TECHNIQUE: MRI THORACIC SPINE (NEURO) WITHOUT CONTRAST, MRI LUMBAR SPINE(NEURO) WITHOUT CONTRAST Multi-sequence, multi-planar MRI of the thoracic spine was performedwithout intravenous contrast. Multi-sequence, multi-planar MRI of the lumbar spine was performed withoutintravenous contrast. COMPARISON: MRI CERVICAL/THORACIC/LUMBAR SPINE WITH AND WITHOUT [id number] FINDINGS: THORACIC SPINE: Alignment and Vertebrae: There is exaggerated thoracic kyphosis. There isno spondylolisthesis. There is mild anterior wedging of T6 vertebral body,unchanged compared to prior study. Mild anterior wedging of T11 vertebralbody associated with a Schmorl's node along the superior endplate is alsounchanged. No new acute compression fracture is identified. Marrow: Bone marrow signal is heterogeneous without evidence of focaldestructive osseous lesions. Discs and Endplates: There are mild degenerative disc disease changes ofthe thoracic spine as evidenced by anterior osteophyte formation. There isno significant spinal canal stenosis or neural foramina narrowing. Spinal Cord: Normal. No spinal cord compression or signal abnormality. Soft Tissue: No prevertebral edema. The paraspinal musculature isunremarkable. Other Findings: There is a prominent CSF density structure along theposterior aspect of cerebellum and hypoplasia of the vermis, betterevaluated on the prior CT head dated December 31, 2022. LUMBAR SPINE: Alignment and Vertebrae: There is normal lumbar lordosis. There is nospondylolisthesis. Vertebral body heights are maintained without evidenceof compression fracture. Marrow: No focal aggressive osseous lesions are identified. There is abone island in L2 vertebral body, unchanged. Discs and Endplates: There is disc desiccation and disc height loss in thelower lumbar spine, most prominent at L3-L4 and L5-S1 levels. Conus: Conus medullaris terminates at L1-L2. The cauda equina nerve rootsare unremarkable. Soft Tissues: There are several subcentimeter renal cysts bilaterally. Thevisualized vertebra joint is otherwise unremarkable. The paraspinalmusculature is unremarkable. Other Findings: None. Findings by level: T12-L1: No spinal or foraminal stenosis. L1-L2: No spinal or foraminal stenosis. L2-L3: No spinal or foraminal stenosis. L3-L4: There is mild diffuse disc bulge with bilateral facet hypertrophyand mild ligamentum flavum thickening, resulting in mild spinal canalstenosis and mild bilateral neural foramina narrowing. Overall,degenerative disc disease changes appear similar compared to priorstudy. L4-L5: Mild bilateral facet hypertrophy. No significant spinal canalstenosis or neural foramina narrowing. L5-S1: Mild diffuse disc bulge with superimposed right subarticular discextrusion, resulting in narrowing of right subarticular zone. There ismild posterior displacement of the traversing right S1 nerve root withpossible impingement, unchanged. There is moderate to severe left andmoderate right neural foramina narrowing. There is probable impingement onthe exiting left L5 nerve root, unchanged. IMPRESSION: 1. Mild degenerative disc disease changes of the thoracic spine withoutsignificant spinal canal stenosis or neural foramina narrowing. 2. Degenerative disc disease changes of the lumbar spine as detailedabove, most prominent at L5-S1 level with right subarticular discextrusion, resulting in mild posterior displacement of the traversingright S1 nerve root with possible impingement. Additionally, there ismoderate to severe left and moderate right neural foramina narrowing atL5-S1 with probable impingement on the exiting left L5 nerve root.Clinical correlation for left L5 neuropathy and right S1 neuropathy isrecommended. Overall, degenerative disc disease changes of the lumbarspine have not significantly changed compared to prior study. us Richard Canas MD [facility] MR XSPECIALTY Final Result * MRI THORACIC SPINE (NEURO) WITHOUT CONTRAST (10/09/2024 11:50 AM EDT) Anatomical Region Laterality Modality T-spine Magnetic Resonan ce 10/12/2024 12:3 4 PM EDT Impressions 10/12/2024 12:48 PM EDT 1. Mild degenerative disc disease changes of the thoracic spine without significant spinal canal stenosis or neural foramina narrowing. 2. Degenerative disc disease changes of the lumbar spine as detailed above, most prominent at L5-S1 level with right subarticular disc extrusion, resulting in mild posterior displacement of the traversing right S1 nerve root with possible impingement. Additionally, there is moderate to severe left and moderate right neural foramina narrowing at L5-S1 with probable impingement on the exiting left L5 nerve root. Clinical correlation for left L5 neuropathy and right S1 neuropathy is recommended. Overall, degenerative disc disease changes of the lumbar spine have not significantly changed compared to prior study. Narrative 10/12/2024 12:48 PM EDT MRI THORACIC SPINE (NEURO) WITHOUT CONTRAST, MRI LUMBAR SPINE (NEURO) WITHOUT CONTRAST Referring clinician's provided indication for this examination in Epic: Outside Radiology Order; ataxic gait TECHNIQUE: MRI THORACIC SPINE (NEURO) WITHOUT CONTRAST, MRI LUMBAR SPINE (NEURO) WITHOUT CONTRAST Multi-sequence, multi-planar MRI of the thoracic spine was performed without intravenous contrast. Multi-sequence, multi-planar MRI of the lumbar spine was performed without intravenous contrast. COMPARISON: MRI CERVICAL/THORACIC/LUMBAR SPINE WITH AND WITHOUT CONTRAST FINDINGS: THORACIC SPINE: Alignment and Vertebrae: There is exaggerated thoracic kyphosis. There is no spondylolisthesis. There is mild anterior wedging of T6 vertebral body, unchanged compared to prior study. Mild anterior wedging of T11 vertebral body associated with a Schmorl's node along the superior endplate is also unchanged. No new acute compression fracture is identified. Marrow: Bone marrow signal is heterogeneous without evidence of focal destructive osseous lesions. Discs and Endplates: There are mild degenerative disc disease changes of the thoracic spine as evidenced by anterior osteophyte formation. There is no significant spinal canal stenosis or neural foramina narrowing. Spinal Cord: Normal. No spinal cord compression or signal abnormality. Soft Tissue: No prevertebral edema. The paraspinal musculature is unremarkable. Other Findings: There is a prominent CSF density structure along the posterior aspect of cerebellum and hypoplasia of the vermis, better evaluated on the prior CT head dated December 31, 2022. LUMBAR SPINE: Alignment and Vertebrae: There is normal lumbar lordosis. There is no spondylolisthesis. Vertebral body heights are maintained without evidence of compression fracture. Marrow: No focal aggressive osseous lesions are identified. There is a bone island in L2 vertebral body, unchanged. Discs and Endplates: There is disc desiccation and disc height loss in the lower lumbar spine, most prominent at L3-L4 and L5-S1 levels. Conus: Conus medullaris terminates at L1-L2. The cauda equina nerve roots are unremarkable. Soft Tissues: There are several subcentimeter renal cysts bilaterally. The visualized vertebra joint is otherwise unremarkable. The paraspinal musculature is unremarkable. Other Findings: None. Findings by level: T12-L1: No spinal or foraminal stenosis. L1-L2: No spinal or foraminal stenosis. L2-L3: No spinal or foraminal stenosis. L3-L4: There is mild diffuse disc bulge with bilateral facet hypertrophy and mild ligamentum flavum thickening, resulting in mild spinal canal stenosis and mild bilateral neural foramina narrowing. Overall, degenerative disc disease changes appear similar compared to prior study. L4-L5: Mild bilateral facet hypertrophy. No significant spinal canal stenosis or neural foramina narrowing. L5-S1: Mild diffuse disc bulge with superimposed right subarticular disc extrusion, resulting in narrowing of right subarticular zone. There is mild posterior displacement of the traversing right S1 nerve root with possible impingement, unchanged. There is moderate to severe left and moderate right neural foramina narrowing. There is probable impingement on the exiting left L5 nerve root, unchanged. Procedure Note Dorota Black MD - 10/12/2024 MRI THORACIC SPINE (NEURO) WITHOUT CONTRAST, MRI LUMBAR SPINE (NEURO)WITHOUT CONTRAST Referring clinician's provided indication for this examination in Epic:Outside Radiology Order; ataxic gait TECHNIQUE: MRI THORACIC SPINE (NEURO) WITHOUT CONTRAST, MRI LUMBAR SPINE(NEURO) WITHOUT CONTRAST Multi-sequence, multi-planar MRI of the thoracic spine was performedwithout intravenous contrast. Multi-sequence, multi-planar MRI of the lumbar spine was performed withoutintravenous contrast. COMPARISON: MRI CERVICAL/THORACIC/LUMBAR SPINE WITH AND WITHOUT [id number] FINDINGS: THORACIC SPINE: Alignment and Vertebrae: There is exaggerated thoracic kyphosis. There isno spondylolisthesis. There is mild anterior wedging of T6 vertebral body,unchanged compared to prior study. Mild anterior wedging of T11 vertebralbody associated with a Schmorl's node along the superior endplate is alsounchanged. No new acute compression fracture is identified. Marrow: Bone marrow signal is heterogeneous without evidence of focaldestructive osseous lesions. Discs and Endplates: There are mild degenerative disc disease changes ofthe thoracic spine as evidenced by anterior osteophyte formation. There isno significant spinal canal stenosis or neural foramina narrowing. Spinal Cord: Normal. No spinal cord compression or signal abnormality. Soft Tissue: No prevertebral edema. The paraspinal musculature isunremarkable. Other Findings: There is a prominent CSF density structure along theposterior aspect of cerebellum and hypoplasia of the vermis, betterevaluated on the prior CT head dated December 31, 2022. LUMBAR SPINE: Alignment and Vertebrae: There is normal lumbar lordosis. There is nospondylolisthesis. Vertebral body heights are maintained without evidenceof compression fracture. Marrow: No focal aggressive osseous lesions are identified. There is abone island in L2 vertebral body, unchanged. Discs and Endplates: There is disc desiccation and disc height loss in thelower lumbar spine, most prominent at L3-L4 and L5-S1 levels. Conus: Conus medullaris terminates at L1-L2. The cauda equina nerve rootsare unremarkable. Soft Tissues: There are several subcentimeter renal cysts bilaterally. Thevisualized vertebra joint is otherwise unremarkable. The paraspinalmusculature is unremarkable. Other Findings: None. Findings by level: T12-L1: No spinal or foraminal stenosis. L1-L2: No spinal or foraminal stenosis. L2-L3: No spinal or foraminal stenosis. L3-L4: There is mild diffuse disc bulge with bilateral facet hypertrophyand mild ligamentum flavum thickening, resulting in mild spinal canalstenosis and mild bilateral neural foramina narrowing. Overall,degenerative disc disease changes appear similar compared to priorstudy. L4-L5: Mild bilateral facet hypertrophy. No significant spinal canalstenosis or neural foramina narrowing. L5-S1: Mild diffuse disc bulge with superimposed right subarticular discextrusion, resulting in narrowing of right subarticular zone. There ismild posterior displacement of the traversing right S1 nerve root withpossible impingement, unchanged. There is moderate to severe left andmoderate right neural foramina narrowing. There is probable impingement onthe exiting left L5 nerve root, unchanged. IMPRESSION: 1. Mild degenerative disc disease changes of the thoracic spine withoutsignificant spinal canal stenosis or neural foramina narrowing. 2. Degenerative disc disease changes of the lumbar spine as detailedabove, most prominent at L5-S1 level with right subarticular discextrusion, resulting in mild posterior displacement of the traversingright S1 nerve root with possible impingement. Additionally, there ismoderate to severe left and moderate right neural foramina narrowing atL5-S1 with probable impingement on the exiting left L5 nerve root.Clinical correlation for left L5 neuropathy and right S1 neuropathy isrecommended. Overall, degenerative disc disease changes of the lumbarspine have not significantly changed compared to prior study. Richard Canas MD [facility] MR XSPECIALTY Final Result documented in this encounter Visit Diagnoses Diagnosis Ataxic gait- Primary Abnormality of gait Ataxic gait Abnormality of gait Ataxic gait Abnormality of gait documented in this encounter Additional Health Concerns Assessment Noted Time PHQ-2 Depression Total Score: 0 12/10/19 24 9:22 AM EDT documented as of this encounter Care Teams Personal Care Aide Relationship Specialty Start Date End Date William Perez DO [address] [place] [phone] [email or web address] PCP - General 03/12/14 William Perez DO [address] [place] [phone] Insurance Assigned Provider 06/01/23 Garret Colon MD [address] [place] [phone] Primary Oncologist Medical Oncology 01/26/20 Glenny Cerda, ZOË [address] [place] [phone] [email or web address] Nurse Practitioner Medical Oncology 05/22/22 09/28/24 documented as of this encounter Additional Source Comments The information contained in this document represents components of the legal health record. It is not the complete legal health record.[facility]
--- OUTSIDE RECORDS SUMMARY | 2024-11-27 10:05 | XMS_ITS | Encounter Summary ---
Author Organization [facility] Address [address] [place] [address] [place] [phone] Phone Care Team Providers Care Chemotherapist Name Role Phone William Perez DO Primary Care Provider [phone] William Perez DO Unavailable Garret Colon MD Unavailable [phone] Glenny Cerda Unavailable Encounter Details Date Type Department Care Team (Late st Contact Info) Description 08/17/2020 Procedure Pass [address] [place] [address] Social History Tobacco Use Types Packs/Day Years [...] Description 12/11/2024 10:00 AM EDT Office Visit [facility] [address] [place] [phone] William Perez DO [address] [address] [email or web address] documented as of this encounter [...] documented as of this encounter Care Teams Chemotherapist Relationship Specialty Start Date End Date William Perez DO [address] [place] [phone] [email or web address] PCP - General 03/12/14 William Perez DO [address] [place] [phone] [email or web address] Insurance Assigned Provider 06/01/23 Garret Colon MD [address] [place] [phone] [email or web address] Primary Oncologist Medical Oncology 01/26/20 Glenny Cerda FNP [address] [place] [phone] [email or web address] Nurse Practitioner Medical Oncology 05/22/22 09/28/24 documented as of this encounter Additional Source Comments The information contained in this document represents components of the legal health record. It is not the complete legal health record.[facility]
--- OUTSIDE RECORDS SUMMARY | 2024-11-27 10:05 | XMS_ITS | Encounter Summary ---
Author Organization [facility] Address [address] [place] [address] Phone Care Team Providers Care Delivery Consultant Name Role Phone William Perez DO Primary Care Provider [phone] William Perez DO Unavailable Garret Colon MD Unavailable [phone] Glenny eCrda BONDING AGENT Unavailable Reason for Visit * Reason Onset Date Comments Forms & Paperwork 09/25/2024 Encounter Details Date Type Department Care Team (Late st Contact Info) Description 09/25/2024 Telephone [place] [address] [address] [email or web address] & Paperwork Social History Tobacco Use Types Packs/Day Years [...] as of this encounter Progress Notes * Subhash Muñoz MA - 10/01/2024 3:14 PM EDT All done and faxed * Subhash Muñoz MA - 09/30/2024 8:40 AM EDT On PCP desk for review * Asia Conley - 09/25/2024 11:30 AM EDT Apryl called in stated she dose not need order CPAP. Central Support Packer Fuser (Please do not reply to this user; this inbox is not monitored.) Thank you. * Gretchen Agarwal - 09/25/2024 10:21 AM EDT [facility] stating a script was sent over for a cpap mask and an order form for medications. Fax number is [phone]. Caller is looking to follow up on this. Please contact and advise. Central Support Packer Fuser (Please do not reply to this user; this inbox is not monitored.) Thank you. documented in this encounter Plan of Treatment Upcoming Encounters Date Type Department Care Team ([facility] st Contact Info) Description 12/11/2024 10:00 AM EDT Office Visit [facility] [address] [place] [address] William Perez DO [address] [address] [email or web address] documented as of this encounter Visit Diagnoses Not on filedocumented in this encounter Additional Health Concerns Assessment Noted Time PHQ-2 Depression Total Score: 0 12/10/19 9:22 AM EDT documented as of this encounter Care Teams Delivery Consultant Relationship Specialty Start Date End Date William Perez DO [address] [place] [address] [email or web address] PCP - General 03/12/14 William Perez DO [address] [place] [address] [email or web address] Insurance Assigned Provider 06/01/23 Garret Colon MD [address] [place] [address] [email or web address] Primary Oncologist Medical Oncology 01/26/20 Glenny Cerda FNP [address] [place] [address] [email or web address] Nurse Practitioner Medical Oncology 05/22/22 09/28/24 documented as of this encounter Additional Source Comments The information contained in this document represents components of the legal health record. It is not the complete legal health record.[facility]
--- OUTSIDE RECORDS SUMMARY | 2024-11-27 10:05 | XMS_ITS | Encounter Summary ---
Author Organization [employer] [facility] Address [address] [place] [address] Phone Care Team Providers Care Fuel Island Attendant Name Role Phone William Perez DO Primary Care Provider [phone] William Perez DO Unavailable Garret Colon MD Unavailable [phone] Encounter Details Date Type Department Care Team (Late st Contact Info) Description 2024 Procedure Pass [facility], Ct Scan - [address] [address] Social History Tobacco Use Types Packs/Day Years [...] 6:43 PM EDT Preeti Nieto RN * [place] Suicide Severity Rating Scale (Screener/Recent Self-Report) Question [...] AM EDT Office Visit [facility] [address] [place] [address] William Perez DO 234 [facility] 7 [place] [address] [email or web address] documented as of this encounter Visit Diagnoses Not on filedocumented in this encounter Additional Health Concerns Assessment Noted Time PHQ-2 Depression Total Score: 0 12/10/19 24 9:22 AM EDT documented as of this encounter Care Teams Fuel Island Attendant Relationship Specialty Start Date End Date William Perez DO [address] [address] [email or web address] PCP - General 03/12/14 William Perez DO [address] [place] [address] [email or web address] Insurance Assigned Provider 06/01/23 Garret Colon MD [address] [place] [address] [email or web address] Primary Oncologist Medical Oncology 01/26/20 documented as of this encounter Additional Source Comments The information contained in this document represents components of the legal health record. It is not the complete legal health record.[facility]
--- OUTSIDE RECORDS SUMMARY | 2024-11-27 10:05 | XMS_ITS | Encounter Summary ---
Author Organization [employer] [facility] Address [address] [place] [address] [place] [address] Phone Care Team Providers Care Addiction Nurse Name Role Phone William Perez DO Primary Care Provider [phone] William Perez DO Unavailable Garret Colon MD Unavailable [phone] Glenny Cerda Unavailable Encounter Details Date Type Department Care Team (Late st Contact Info) Description 01/29/2022 Procedure Pass [facility] Admitting Dept Virtual Department [address] [place] [address] Social History Tobacco Use Types Packs/Day Years [...] Description 12/11/2024 10:00 AM EDT Office Visit [facility] 234 [place], [place] [phone] William Perez DO 234 [facility], [address] [place] [address] [email or web address] documented as of this encounter Visit Diagnoses Not on filedocumented in this encounter Additional Health Concerns Infection Onset Date Last Indicated Resolved Time 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 05/30/2018 09/21/2022 1:23 AM EDT Assessment Noted Time PHQ-2 Depression Total Score: 0 11/09/19 10:35 AM EDT documented as of this encounter Care Teams Addiction Nurse Relationship Specialty Start Date End Date William Perez DO 234 [facility] 7 [place] [address] [email or web address] PCP - General 03/12/14 William Perez DO [address] [place] [address] 7 [place] [address] [email or web address] Insurance Assigned Provider 06/01/23 Garret Colon MD [address] [place] [address] [email or web address] Primary Oncologist Medical Oncology 01/26/20 Glenny Cerda FNP [address] [place] [address] [email or web address] Nurse Practitioner Medical Oncology 05/22/22 09/28/24 documented as of this encounter Additional Source Comments The information contained in this document represents components of the legal health record. It is not the complete legal health record.[facility]
--- OUTSIDE RECORDS SUMMARY | 2024-11-27 10:05 | XMS_ITS | Encounter Summary ---
Author Organization [facility] Address [address] [place] [address] [place] [address] Phone Care Team Providers Care Tank Truck Mechanic Name Role Phone William Perez DO Primary Care Provider [phone] William Perez DO Unavailable Garret Colon MD Unavailable [phone] Glenny CerdaP Unavailable [phone] Reason for Visit * Reason Comments Medication Refill Encounter Details Date Type Department Care Team (Late st Contact Info) Description 08/24/2024 Refill [facility] 30 [place] [address] Joyce Florentino CNP 30 [place] [address] [email or web address] Medication Refill Social History Tobacco Use Types [...] No Risk Indicated 2024 6:43 PM EDT Tina sow, MARY Álvarez * [place] Suicide Severity Rating Scale (Screener/Recent Self-Report) Question Answer Date of Assessment Author 1. Wish to be (Past 1 Month) No 2024 6:43 PM EDT India Madsen RN 2. Non-Specific Active Suicidal Thoughts (Past 1 Month) No 2024 6:43 PM EDT Charlette Madsen RN 6. Suicidal Behavior (Lifetime) No 2024 6:43 PM EDT India Madsen RN documented as of this encounter Progress Notes * Richa Hagen CMA - 08/24/2024 11:15 AM EDT To: PACK documented in this encounter Plan of Treatment Upcoming Encounters Date Type Department Care Team (Late st Contact Info) Description 12/11/2024 10:00 AM EDT Office Visit [address] [address] William Perez DO [address] [address] [email or web address] documented as of this encounter Visit Diagnoses Diagnosis CLL (chronic lymphocytic leukemia) Chronic lymphoid leukemia, without mention of having achieved remission documented in this encounter Additional Health Concerns Assessment Noted Time PHQ-2 Depression Total Score: 0 12/10/19 9:22 AM EDT documented as of this encounter Care Teams Tank Truck Mechanic Relationship Specialty Start Date End Date William Perez DO [address] [place] [address] PCP - General 03/12/14 William Perez DO [address] [place] [address] Insurance Assigned Provider 06/01/23 Garret Colon MD [address] [place] [address] Primary Oncologist Medical Oncology 01/26/20 Glenny Cerda FNP [address] [place] [address] [email or web address] Nurse Practitioner Medical Oncology 05/22/22 09/28/24 documented as of this encounter Additional Source Comments The information contained in this document represents components of the legal health record. It is not the complete legal health record.[facility]
--- OUTSIDE RECORDS SUMMARY | 2024-11-27 10:05 | XMS_ITS | Encounter Summary ---
Author Organization [facility] Address [address] [place] [address] Phone Care Team Providers Care Cloth Brushing And Sueding Supervisor Name Role Phone William Perez DO Primary Care Provider [phone] William Perez DO Unavailable Garret Colon MD Unavailable [phone] Glenny Cerda Unavailable Encounter Details Date Type Department Care Team (Late st Contact Info) Description 08/04/2024 Telephone [facility] [address] [place], [place] [id number] [email or web address] Social History Tobacco Use Types Packs/Day [...] Date of Assessment Author No Risk Indicated 08/04/2024 3:31 PM EDT Lorenza Wright RN * [place] Suicide Severity Rating Scale (Screener/Recent Self-Report) Question Answer Date of Assessment Author 1. Wish to be (Past 1 Month) No 025 3:31 PM EDT Cira Wright, RN 2. Non-Specific Active Suici pal Thoughts (Past 1 Month) No 08/04/2024 3:31 PM EDT Cira Wright , RN 6. Suicidal Behavior (Lifetime) No 5 3:31 PM EDT Cira Wright, RN documented as of this encounter Plan of Treatment Upcoming Encounters Date Type Department Care Team (Late st Contact Info) Description 12/11/2024 10:00 AM EDT Office Visit [facility] [address] [place] [address] William Perez DO 234 [facility], [address] [place] [address] [email or web address] documented as of this encounter Visit Diagnoses Not on filedocumented in this encounter Additional Health Concerns Assessment Noted Time PHQ-2 Depression Total Score: 0 12/10/19 24 9:22 AM EDT documented as of this encounter Care Teams Cloth Brushing And Sueding Supervisor Relationship Specialty Start Date End Date William Perez DO 234 [facility], [address] [place] [address] [email or web address] PCP - General 03/12/14 William Perez DO 234 [facility], [address] [place] [address] [email or web address] Insurance Assigned Provider 06/01/23 Garret Colon MD 30 [place] [address] [email or web address] Primary Oncologist Medical Oncology 01/26/20 Glenny Cerda FNP 30 [place] [address] [email or web address] Nurse Practitioner Medical Oncology 05/22/22 09/28/24 documented as of this encounter Additional Source Comments The information contained in this document represents components of the legal health record. It is not the complete legal health record.[facility]
--- OUTSIDE RECORDS SUMMARY | 2024-11-27 10:06 | XMS_ITS | Encounter Summary ---
Author Organization [employer] [facility] Address [address] [place] [address] [place] [address] Phone Care Team Providers Care Gas Appliance Installer Name Role Phone William Perez DO Primary Care Provider [phone] William Perez DO Unavailable Garret Colon MD Unavailable [phone] Glenny Cerda Unavailable [phone] Encounter Details Date Type Department Care Team (Late st Contact Info) Description 04/25/2020 Procedure Pass [facility], Ct Scan - [address] [address] Social History Tobacco Use Types Packs/Day Years [...] Description 12/11/2024 10:00 AM EDT Office Visit [address] [phone] William Perez DO 234 [facility], [address] [place] [address] [email or web address] [...] documented as of this encounter Care Teams Gas Appliance Installer Relationship Specialty Start Date End Date Wliliam Perez DO 234 [facility] 7 [place] [address] [email or web address] PCP - General 03/12/14 William Perez DO 234 [facility], [facility] 7 [place] [address] [email or web address] Insurance Assigned Provider 06/01/23 Garret Colon MD [address] [place] [address] [email or web address] Primary Oncologist Medical Oncology 01/26/20 Glenny Cerda FNP [address] [place] [address] [email or web address] Nurse Practitioner Medical Oncology 05/22/22 09/28/24 documented as of this encounter Additional Source Comments The information contained in this document represents components of the legal health record. It is not the complete legal health record.[facility]
--- OUTSIDE RECORDS SUMMARY | 2024-11-27 10:06 | XMS_ITS | Encounter Summary ---
Author Organization [employer] [facility] Address [address] [place] [address] [place] [address] Phone Care Team Providers Care Enterprise Systems Administrator Name Role Phone William Perez DO Primary Care Provider [phone] William Perez DO Unavailable Garret Colon MD Unavailable [phone] Glenny CerdaP Unavailable Encounter Details Date Type Department Care Team (Late st Contact Info) Description 08/17/2020 Procedure Pass [facility], [address] [address] Social History Tobacco Use Types Packs/Day Years [...] Description 12/11/2024 10:00 AM EDT Office Visit [address] [address] William Perez DO [address] [address] [email or web address] documented [...] documented as of this encounter Care Teams Enterprise Systems Administrator Relationship Specialty Start Date End Date William Perez DO [address] [place] [address] [email or web address] PCP - General 03/12/14 William Perez DO [address] [place] [address] [email or web address] Insurance Assigned Provider 06/01/23 Garret Colon MD [address] [place] [address] [email or web address] Primary Oncologist Medical Oncology 01/26/20 Glenny Cerda FNP [address] [place] [address] [email or web address] Nurse Practitioner Medical Oncology 05/22/22 09/28/24 documented as of this encounter Additional Source Comments The information contained in this document represents components of the legal health record. It is not the complete legal health record.[facility]
--- OUTSIDE RECORDS SUMMARY | 2024-11-27 10:06 | XMS_ITS | Encounter Summary ---
Author Organization 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[place] Procedures MRI Brain Alida Mason NP [address] [address] Phone: tel: fax: Referral ID Status Reason Start Date Expiration Date Visits Re quested Visits Authorized [id number] Closed 05/18/2021 05/18/2022 1 1 Encounter Details Date Type Department Care Team (Latest Contact Info) Description 05/18/2021 Transcribe Orders [facility] Department 30 [place] [address] Alida Mason NP [address] [address] Pervasive developmental disorder, unspecified (Primary Dx); Unspecified mental disorder due to known physiological condition; Atresia of foramina of [place] Social History Tobacco Use Types Packs/Day Years [...] Description 12/11/2024 10:00 AM EDT Office Visit [address] [address] William Perez DO 234 [facility] [address] [place] [address] [email or web address] documented as of this encounter Results * MRI BRAIN WITHOUT CONTRAST (05/31/2021 4:36 PM EDT) Anatomical Region Laterality Modality Head Magnetic Resonan ce 05/31/2021 6:24 PM EDT Impressions 05/31/2021 6:41 PM EDT 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 No acute intracranial pathology. Unchanged mild burden of T2/FLAIR hyperintensities. Differential considerations include sequelae of prior ischemic/traumatic/infectious/inflammatory insult. Narrative 05/31/2021 6:41 PM EDT MRI BRAIN WITHOUT CONTRAST TECHNIQUE: Multi-sequence, multi-planar MRI of the brain was performed without intravenous contrast. 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 Unchanged mild burden of T2/FLAIR weighted hyperintensities within the periventricular and deep cortical white matter. No restricted diffusion, evidence of ischemia, or hemorrhage. No intracranial mass. Mastoid air cells and middle ears are clear. Mucus retention cysts within the maxillary sinuses. Orbits are within normal limits. No acute osseous abnormality. Procedure Note Carlos Enrique Bull MD - 05/31/2021 MRI BRAIN WITHOUT CONTRAST TECHNIQUE: Multi-sequence, multi-planar MRI of the brain was performed withoutintravenous contrast. 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 Unchanged appearance of colpocephaly with disproportionate enlargement ofthe occipital horns of the lateral ventricles. 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 Unchanged mild burden of T2/FLAIR weighted hyperintensities within theperiventricular and deep cortical white matter. No restricted diffusion,evidence of ischemia, or hemorrhage. No intracranial mass. Mastoid air cells and middle ears are clear. Mucus retention cysts withinthe maxillary sinuses. Orbits are within normal limits. No acute osseous abnormality. 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 No acute intracranial pathology. Unchanged mild burden of T2/FLAIR hyperintensities. Differentialconsiderations include sequelae of priorischemic/traumatic/infectious/inflammatory insult. 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[place] Obstructive hydrocephalus documented in this encounter Additional Health Concerns Infection Onset Date Last Indicated Resolved Time 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 05/30/2018 09/21/2022 1:23 AM EDT CoV-Risk 07/13/2021 07/13/2021 07/24/2021 1:22 AM EDT CoV-Presumed 07/26/2021 07/26/2021 08/16/2021 1:23 AM EDT Assessment Noted Time PHQ-2 Depression Total Score: 0 11/05/19 21 11:47 AM EDT documented as of this encounter Care Teams Lead Esthetician Relationship Specialty Start Date End Date William Perez DO [address] [place] [address] [email or web address] PCP - General 03/12/14 William Perez DO [address] [place] [address] [email or web address] Insurance Assigned Provider 06/01/23 Garret Colon MD [address] [place] [address] [email or web address] Primary Oncologist Medical Oncology 01/26/20 Glenny Cerda FNP [address] [place] [address] [email or web address] Nurse Practitioner Medical Oncology 05/22/22 09/28/24 documented as of this encounter Additional Source Comments The information contained in this document represents components of the legal health record. It is not the complete legal health record.[facility]
--- OUTSIDE RECORDS SUMMARY | 2024-11-27 10:06 | XMS_ITS | Encounter Summary ---
Author Organization [facility] Address [address] [place] [address] [place] [address] Phone Care Team Providers Care Cobbler Mckay Name Role Phone William Perez DO Primary Care Provider William Perez DO Unavailable Garret Colon MD Unavailable [phone] Glenny Cerda Unavailable [phone] Encounter Details Date Type Department Care Team (Late st Contact Info) Description 09/03/2018 Procedure Pass [facility], [address] [address] Social History Tobacco Use Types Packs/Day Years [...] Description 12/11/2024 10:00 AM EDT Office Visit [facility] [address] [place] [address] William Perez DO [address] [address] [email or web address] documented as of this [...] documented as of this encounter Care Teams Cobbler Mckay Relationship Specialty Start Date End Date William Perez DO [address] [place] [address] [email or web address] PCP - General 03/12/14 William Perez DO [address] [place] [address] [email or web address] Insurance Assigned Provider 06/01/23 Garret Colon MD [address] [place] [address] [email or web address] Primary Oncologist Medical Oncology 01/26/20 Glenny Cerda FNP [address] [place] [address] [email or web address] Nurse Practitioner Medical Oncology 05/22/22 09/28/24 documented as of this encounter Additional Source Comments The information contained in this document represents components of the legal health record. It is not the complete legal health record.[facility]
--- OUTSIDE RECORDS SUMMARY | 2024-11-27 10:06 | XMS_ITS | Encounter Summary ---
Author Organization [employer] [facility] Address [address] [place] [address] [place] [address] Phone Care Team Providers Care Picking Machine Operator Helper Name Role Phone William Perez DO Primary Care Provider [phone] William Perez DO Unavailable Garret Colon MD Unavailable [phone] Glenny CerdaP Unavailable Encounter Details Date Type Department Care Team (Late st Contact Info) Description 08/17/2020 Procedure Pass [facility], [address] [address] Social History Tobacco Use Types Packs/Day Years [...] Description 12/11/2024 10:00 AM EDT Office Visit [address] [address] William Perez DO [address] [address] [email or web address] documented as of this encounter Visit Diagnoses [...] documented as of this encounter Care Teams Picking Machine Operator Helper Relationship Specialty Start Date End Date William Perez DO [address] [place] [address] [email or web address] PCP - General 03/12/14 William Perez DO [address] [place] [address] [email or web address] Insurance Assigned Provider 06/01/23 Garret Colon MD [address] [place] [address] [email or web address] Primary Oncologist Medical Oncology 01/26/20 Glenny Cerda FNP [address] [place] [address] [email or web address] Nurse Practitioner Medical Oncology 05/22/22 09/28/24 documented as of this encounter Additional Source Comments The information contained in this document represents components of the legal health record. It is not the complete legal health record.[facility]
--- OUTSIDE RECORDS SUMMARY | 2024-11-27 10:06 | XMS_ITS | Encounter Summary ---
Author Organization [facility] Address [address] [place] [address] Phone Care Team Providers Care Silverware Supervisor Name Role Phone William Perez DO Primary Care Provider [phone] William Perez DO Unavailable Garret Colon MD Unavailable [phone] Glenny Cerda Unavailable Encounter Details Date Type Department Care Team (Late st Contact Info) Description 11/07/2018 Procedure Pass [facility] [address] [place] [address] Social History Tobacco Use Types Packs/Day Years [...] Description 12/11/2024 10:00 AM EDT Office Visit [facility] [address] [place] [address] William Perez DO 234 [facility] 7 [place] [address] [email or web address] documented as of this encounter Visit Diagnoses [...] documented as of this encounter Care Teams Silverware Supervisor Relationship Specialty Start Date End Date William Perez DO [address] [address] [email or web address] PCP - General 03/12/14 William Perez DO [address] [address] [email or web address] Insurance Assigned Provider 06/01/23 Garret Colon MD [address] [place] [address] [email or web address] Primary Oncologist Medical Oncology 01/26/20 Glenny Cerda FNP [address] [place] [address] [email or web address] Nurse Practitioner Medical Oncology 05/22/22 09/28/24 documented as of this encounter Additional Source Comments The information contained in this document represents components of the legal health record. It is not the complete legal health record.[facility]
--- OUTSIDE RECORDS SUMMARY | 2024-11-27 10:06 | XMS_ITS | Encounter Summary ---
Author Organization [employer] [facility] Address [address] [place] [address] [place] [address] Phone Care Team Providers Care Assembly Lead Person Name Role Phone William Perez DO Primary Care Provider [phone] William Perez DO Unavailable Garret Colon MD Unavailable [phone] Glenny Cerda PSYCHOLOGICAL OPERATIONS SPECIALIST Unavailable [phone] Encounter Details Date Type Department Care Team (Latest Contact Info) Description 12/29/2018 Transcribe Orders [address] [facility] [place] [address] Carlos Enrique [place] MD [address] [place] [address], [address] [place] [address] [email or web address] Special screening for malignant neoplasm of prostate (Primary Dx) Social History Tobacco Use Types [...] 12/11/2024 10:00 AM EDT Office Visit [facility] 234 [place] [address] William Perez DO 234 [facility] 7 [place] [address] [email or web address] documented as of this encounter Results * PSA (screening) (12/29/2018 9:49 AM EST) PSA 2.94 0 - 4.00 ng/mL [facility] Blood 12/29/2018 9:49 AM EST 12/29/2018 9:54 AM EST us Carlos Enrique [place] MD LAB BLOOD ORDERABLES Final Resul t [facility] [address] [place] [address] documented in this encounter Visit Diagnoses Diagnosis Special screening for malignant neoplasm of prostate- Primary documented in this encounter Additional Health Concerns Infection Onset Date Last Indicated Resolved Time 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 05/30/2018 09/21/2022 1:23 AM EDT CoV-Exposed Comment:Recent close contact 03/07/2020 03/07/2020 03/21/2020 1:24 AM EST CoV-Risk 12/02/2020 12/02/2020 12/12/2020 1:22 AM EDT CoV-Risk 07/13/2021 07/13/2021 07/24/2021 1:22 AM EDT CoV-Presumed 07/26/2021 07/26/2021 08/16/2021 1:23 AM EDT documented as of this encounter Care Teams Assembly Lead Person Relationship Specialty Start Date End Date William Perez DO [address] [place] [address] 7 [place] [address] [email or web address] PCP - General 03/12/14 William Preez DO [address] [place] [address] [address] [place] [address] [email or web address] Insurance Assigned Provider 06/01/23 Garret Colon MD [address] [place] [address] [email or web address] Primary Oncologist Medical Oncology 01/26/20 Glenny Cerda FNP [address] [place] [address] [email or web address] Nurse Practitioner Medical Oncology 05/22/22 09/28/24 documented as of this encounter Additional Source Comments The information contained in this document represents components of the legal health record. It is not the complete legal health record.[facility]
--- OUTSIDE RECORDS SUMMARY | 2024-11-27 10:06 | XMS_ITS | Encounter Summary ---
Author Organization [facility] Address [address] [place] [address] Phone Care Team Providers Care Mail Truck Driver Name Role Phone William Perez DO Primary Care Provider [phone] William Perez DO Unavailable Garret Colon MD Unavailable [phone] Glenny Cerda Unavailable [phone] Encounter Details Date Type Department Care Team (Late st Contact Info) Description 07/13/2023 Procedure Pass [facility], [facility] Scan - [address] [id number] Social History Tobacco Use Types Packs/Day Years [...] Date of Assessment Author No Risk Indicated 07/13/2023 9:44 AM EDT Thi Culp RN * [place] Suicide Severity Rating Scale (Screener/Recent Self-Report) Question Answer Date of Assessment Author 1. Wish to be (Past 1 Month) No 024 9:44 AM EDT Thi Culp RN 2. Non-Specific Active Suici pal Thoughts (Past 1 Month) No 07/13/2023 9:44 AM EDT Thi Culp RN 6. Suicidal Behavior (Lifetime) No 4 9:44 AM EDT Thi Culp RN documented as of this encounter Plan of Treatment Upcoming Encounters Date Type Department Care Team (Late st Contact Info) Description 12/11/2024 10:00 AM EDT Office Visit [facility] [address] [place] [address] William Perez DO 234 [facility], [address] [place] [address] [email or web address] documented as of this encounter Visit Diagnoses Not on filedocumented in this encounter Additional Health Concerns Assessment Noted Time PHQ-2 Depression Total Score: 0 11/29/19 23 9:02 AM EDT documented as of this encounter Care Teams Mail Truck Driver Relationship Specialty Start Date End Date William Perez DO [address] [place] [address], [address] [place] [address] [email or web address] PCP - General 03/12/14 William Perez DO [address] [place] [address] 7 [place] [address] [email or web address] Insurance Assigned Provider 06/01/23 Garret Colon MD [address] [place] [address] [email or web address] Primary Oncologist Medical Oncology 01/26/20 Glenny Cerda FNP [address] [place] [address] [email or web address] Nurse Practitioner Medical Oncology 05/22/22 09/28/24 documented as of this encounter Additional Source Comments The information contained in this document represents components of the legal health record. It is not the complete legal health record.[facility]
--- OUTSIDE RECORDS SUMMARY | 2024-11-27 10:06 | XMS_ITS | Encounter Summary ---
Author Organization [employer] [facility] Address [address] [place] [address] [place] [address] Phone Care Team Providers Care Foiling Machine Adjuster Name Role Phone William Perez DO Primary Care Provider William Perez DO Unavailable Garret Colon MD Unavailable [phone] Glenny CerdaP Unavailable [phone] Encounter Details Date Type Department Care Team (Late st Contact Info) Description 05/23/2022 Procedure Pass [facility], [address] [address] Social History Tobacco Use Types Packs/Day Years [...] Description 12/11/2024 10:00 AM EDT Office Visit [address] [address] William Perez DO 234 [facility], [address] [place] [address] [email or web address] documented as of this encounter Visit Diagnoses Not on filedocumented in this encounter Additional Health Concerns Infection Onset Date Last Indicated Resolved Time 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 05/30/2018 09/21/2022 1:23 AM EDT Assessment Noted Time PHQ-2 Depression Total Score: 0 11/09/19 10:35 AM EDT documented as of this encounter Care Teams Foiling Machine Adjuster Relationship Specialty Start Date End Date William Perez DO 234 [facility] 7 [place] [address] [email or web address] PCP - General 03/12/14 William Perez DO 234 [facility] 7 [place] [address] [email or web address] Insurance Assigned Provider 06/01/23 Garret Colon MD [address] [place] [address] [email or web address] Primary Oncologist Medical Oncology 01/26/20 Glenny Cerda FNP [address] [place] [address] [email or web address] Nurse Practitioner Medical Oncology 05/22/22 09/28/24 documented as of this encounter Additional Source Comments The information contained in this document represents components of the legal health record. It is not the complete legal health record.[facility]
--- OUTSIDE RECORDS SUMMARY | 2024-11-27 10:06 | XMS_ITS | Encounter Summary ---
Author Organization [facility] Address [address] [place] [address] Phone Care Team Providers Care Fabric Separator Operator Name Role Phone William Perez DO Primary Care Provider [phone] William Perez DO Unavailable Garret Colon MD Unavailable [phone] Glenny Cerda Unavailable [phone] Encounter Details Date Type Department Care Team (Late st Contact Info) Description 02/12/2023 Procedure Pass [facility], [address] [address] Social History Tobacco Use Types Packs/Day Years [...] Description 12/11/2024 10:00 AM EDT Office Visit [facility] [address] [place] [address] William Perez DO [address] [address] [email or web address] documented as of this encounter Visit Diagnoses Not on filedocumented in this encounter Additional Health Concerns Assessment Noted Time PHQ-2 Depression Total Score: 0 11/29/19 23 9:02 AM EDT documented as of this encounter Care Teams Fabric Separator Operator Relationship Specialty Start Date End Date William Perez DO [address] [address] [email or web address] PCP - General 03/12/14 William Perez DO [address] [place] [address] Insurance Assigned Provider 06/01/23 Garret Colon MD [address] [place] [address] Primary Oncologist Medical Oncology 01/26/20 Glenny Cerda FNP [address] [place] [address] Nurse Practitioner Medical Oncology 05/22/22 09/28/24 documented as of this encounter Additional Source Comments The information contained in this document represents components of the legal health record. It is not the complete legal health record.[facility]
--- OUTSIDE RECORDS SUMMARY | 2024-11-27 10:06 | XMS_ITS | Encounter Summary ---
Author Organization [email or web address] [facility] Address [address] [place] [address] [place] [address] Phone Care Team Providers Care News Production Assistant Name Role Phone William Perez DO Primary Care Provider [phone] William Perez DO Unavailable Garret Colon MD Unavailable [phone] Glenny Cerda Unavailable [phone] Encounter Details Date Type Department Care Team (Late st Contact Info) Description 05/18/2021 Procedure Pass [address] [place] [address] Social History Tobacco Use Types Packs/Day Years [...] Description 12/11/2024 10:00 AM EDT Office Visit [facility] [address] [place] [address] William Perez DO 234 [facility] 7 [place] [address] [email or web address] documented as of this encounter Visit Diagnoses [...] documented as of this encounter Care Teams News Production Assistant Relationship Specialty Start Date End Date William Perez DO 234 [facility] 7 [place] [address] [email or web address] PCP - General 03/12/14 William Perez DO [address] [place] [address] 7 [place] [address] [email or web address] Insurance Assigned Provider 06/01/23 Garret Colon MD [address] [place] [address] [email or web address] Primary Oncologist Medical Oncology 01/26/20 Glenny Cerda FNP [address] [place] [address] [email or web address] Nurse Practitioner Medical Oncology 05/22/22 09/28/24 documented as of this encounter Additional Source Comments The information contained in this document represents components of the legal health record. It is not the complete legal health record.[facility]
--- OUTSIDE RECORDS SUMMARY | 2024-11-27 10:06 | XMS_ITS | Encounter Summary ---
Author Organization [facility] Address [address] [place] [address] Phone Care Team Providers Care Managing Broker Name Role Phone William Perez DO Primary Care Provider [phone] William Perez DO Unavailable Garret Colon MD Unavailable [phone] Glenny Cerda DIRECTOR SPECIALTY Unavailable [phone] Reason for Referral * MRI/CAT Scan - Closed Specialty Diagnoses / Procedures Referred By Sarai martinez Referred To Contact Radiology Diagnoses Abdominal pain, unspecified abdominal location Procedures MRI Cholangiopancreatography (MRCP) Alex Manzano MD Phone: tel: fax: [email or web address] Referral ID Status Reason Start Date Expiration Date Visits Re quested Visits Authorized [id number] Closed 07/12/2024 07/12/2025 1 1 Encounter Details Date Type Department Care Team (Latest Contact Info) Description 07/12/2024 Transcribe Orders Virtual Department [address] [place] [address] Alex Manzano MD [address] [place] [id number] [email or web address] Abdominal pain, unspecified abdominal location (Primary Dx) Social History Tobacco Use Types [...] Description 12/11/2024 10:00 AM EDT Office Visit [facility] [address] [place] [address] William Perez DO 234 [facility], [address] [place] [address] [email or web address] documented as of this encounter Results * MRI CHOLANGIOPANCREATOGRAPHY (MRCP) WITH AND WITHOUT CONTRAST (08/05/2024 11:10 AM EDT) Anatomical Region Laterality Modality Pancreas, Biliary Magnetic Reson ance 08/11/2024 12:4 5 PM EDT Impressions 08/11/2024 1:03 PM EDT 1. No evidence for focal pancreatic mass nor acute process. 2. Unchanged abdominal enlarged retroperitoneal lymph nodes measuring up to 13 mm on the left when compared to 07/10/2023. No new or enlarging lymph nodes seen. 3. Postoperative change status post cholecystectomy without biliary ductal dilatation nor choledocholithiasis within limits of motion. 4. Pancreatic divisum, an anatomic variant. 5. Other findings, as above, including hepatic steatosis, subcentimeter left hepatic lobe cyst and bilateral renal cysts, some of which are hemorrhagic/proteinaceous. Narrative 08/11/2024 1:03 PM EDT MRI CHOLANGIOPANCREATOGRAPHY (MRCP) WITH AND WITHOUT CONTRAST Referring clinician's provided indication for this examination in Epic: Outside Radiology Order; Abdominal pain, the patient has a history of colon cancer, melanoma and CLL. TECHNIQUE: Multiplanar MR imaging of the abdomen was performed using T1, T2, fat saturated, and diffusion weighted techniques. 2D and 3D MRCP sequences were performed. Dynamic multiphase imaging was also performed after administration of an intravenous gadolinium contrast agent. COMPARISON: MRI CHOLANGIOPANCREATOGRAPHY (MRCP) WITH AND WITHOUT CONTRAST ; CT ABDOMEN/PELVIS WITH CONTRAST FINDINGS: The examination is degraded by mild motion. Lower Chest: No effusions. Note is made of bilateral gynecomastia. Liver: There is associated loss of signal on opposed phased imaging. There is a subcentimeter 7 mm T2 hyperintense lesion within segment 2 of the liver on image 18 of series 3, as before, likely a cyst. This is without significant enhancement within limits of motion. Biliary: There is postoperative change status post cholecystectomy. The CBD is normal in caliber at 7 mm for age and postcholecystectomy status. Conclusion degraded MRCP images demonstrate no evidence for choledocholithiasis. Spleen: No splenomegaly or focal lesion. Pancreas: No masses or ductal dilatation. Note is made of pancreatic divisum, an anatomic variant. Adrenal Glands: No nodules. Kidneys/Ureters: There is no hydronephrosis. There are bilateral renal cysts noted, some simple and some demonstrating intrinsic T1 hyperintensity consistent with hemorrhagic/proteinaceous cysts. The visualized kidneys are without suspicious enhancing mass on subtraction images. There is unchanged perinephric reticulation/fluid, as before, likely chronic Bowel: There is a small hiatal hernia with nonspecific thickening of the distal esophagus. The stomach is largely collapsed. Small bowel loops are normal in caliber. There is no visualized bowel obstruction. Peritoneum/Retroperitoneum: There is trace fluid in the right paracolic bladder, as before. There is no significant ascites. Lymph Nodes: There are unchanged mildly enlarged retroperitoneal lymph nodes measuring up to 13 mm as on image 57 of series 10 when compared to 07/10/2023. No new or enlarging lymph nodes seen. Vessels: No abdominal aortic aneurysm. Bones/Soft Tissues: No focal marrow replacing lesions. Mild multilevel degenerative changes are noted. There is an unchanged T2 hypointense bone island within the right aspect of L2 as on image 24 series 2, as before. Procedure Note Ap Vegas MD - 08/11/2024 MRI CHOLANGIOPANCREATOGRAPHY (MRCP) WITH AND WITHOUT CONTRAST Referring clinician's provided indication for this examination in Epic:Outside Radiology Order; Abdominal pain, the patient has a history ofcolon cancer, melanoma and CLL. TECHNIQUE: Multiplanar MR imaging of the abdomen was performed using T1,T2, fat saturated, and diffusion weighted techniques. 2D and 3D MRCPsequences were performed. Dynamic multiphase imaging was also performedafter administration of an intravenous gadolinium contrast agent. COMPARISON: MRI CHOLANGIOPANCREATOGRAPHY (MRCP) WITH AND WITHOUT [id number]; CT ABDOMEN/PELVIS WITH CONTRAST FINDINGS: The examination is degraded by mild motion. Lower Chest: No effusions. Note is made of bilateral gynecomastia. Liver: There is associated loss of signal on opposed phased imaging. Thereis a subcentimeter 7 mm T2 hyperintense lesion within segment 2 of theliver on image 18 of series 3, as before, likely a cyst. This is withoutsignificant enhancement within limits of motion. Biliary: There is postoperative change status post cholecystectomy. TheCBD is normal in caliber at 7 mm for age and postcholecystectomy status.Conclusion degraded MRCP images demonstrate no evidence forcholedocholithiasis. Spleen: No splenomegaly or focal lesion. Pancreas: No masses or ductal dilatation. Note is made of pancreaticdivisum, an anatomic variant. Adrenal Glands: No nodules. Kidneys/Ureters: There is no hydronephrosis. There are bilateral renalcysts noted, some simple and some demonstrating intrinsic [id number] consistent with hemorrhagic/proteinaceous cysts. Thevisualized kidneys are without suspicious enhancing mass on subtractionimages. There is unchanged perinephric reticulation/fluid, as before,likely chronic Bowel: There is a small hiatal hernia with nonspecific thickening of thedistal esophagus. The stomach is largely collapsed. Small bowel loops arenormal in caliber. There is no visualized bowel obstruction. Peritoneum/Retroperitoneum: There is trace fluid in the right paracolicbladder, as before. There is no significant ascites. Lymph Nodes: There are unchanged mildly enlarged retroperitoneal lymphnodes measuring up to 13 mm as on image 57 of series 10 when compared to07/10/2023. No new or enlarging lymph nodes seen. Vessels: No abdominal aortic aneurysm. Bones/Soft Tissues: No focal marrow replacing lesions. Mild multileveldegenerative changes are noted. There is an unchanged T2 hypointense boneisland within the right aspect of L2 as on image 24 series 2, as before. IMPRESSION: 1. No evidence for focal pancreatic mass nor acute process. 2. Unchanged abdominal enlarged retroperitoneal lymph nodes measuring upto 13 mm on the left when compared to 07/10/2023. No new or enlarging lymphnodes seen. 3. Postoperative change status post cholecystectomy without biliaryductal dilatation nor choledocholithiasis within limits of motion. 4. Pancreatic divisum, an anatomic variant. 5. Other findings, as above, including hepatic steatosis, subcentimeterleft hepatic lobe cyst and bilateral renal cysts, some of which arehemorrhagic/proteinaceous. Alex Manzano MD IMG MR ABDOMEN Final Result documented in this encounter Visit Diagnoses Diagnosis Abdominal pain, unspecified abdominal location- Primary Abdominal pain, unspecified abdominal location documented in this encounter Additional Health Concerns Assessment Noted Time PHQ-2 Depression Total Score: 0 12/10/19 9:22 AM EDT documented as of this encounter Care Teams Managing Broker Relationship Specialty Start Date End Date William Perez DO 234 [facility] 7 [place] [address] [email or web address] PCP - General 03/12/14 William Perez DO 234 [facility] 7 [place] [address] [email or web address] Insurance Assigned Provider 06/01/23 Garret Colon MD [address] [place] [address] Primary Oncologist Medical Oncology 01/26/20 Glenny Cerda FNP [address] [place] [address] Nurse Practitioner Medical Oncology 05/22/22 09/28/24 documented as of this encounter Additional Source Comments The information contained in this document represents components of the legal health record. It is not the complete legal health record.[facility]
--- OUTSIDE RECORDS SUMMARY | 2024-11-27 10:06 | XMS_ITS | Encounter Summary ---
Author Organization [employer] [facility] Address [address] [place] [address] [place] [address] Phone Care Team Providers Care Head Wrestling Coach Name Role Phone William Perez DO Primary Care Provider [phone] William Perez DO Unavailable Garret Colon MD Unavailable [phone] Glenny CerdaP Unavailable Encounter Details Date Type Department Care Team (Late st Contact Info) Description 05/23/2022 Procedure Pass [facility], [address] [address] Social History Tobacco Use Types Packs/Day Years [...] Description 12/11/2024 10:00 AM EDT Office Visit [address] [address] William Perez DO 234 [facility], [address] [place] [address] [email or web address] documented as of this encounter Visit Diagnoses Not on filedocumented in this encounter Additional Health Concerns Infection Onset Date Last Indicated Resolved Time 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 05/30/2018 09/21/2022 1:23 AM EDT Assessment Noted Time PHQ-2 Depression Total Score: 0 11/09/19 10:35 AM EDT documented as of this encounter Care Teams Head Wrestling Coach Relationship Specialty Start Date End Date William Perez DO 234 [facility] 7 [place] [address] [email or web address] PCP - General 03/12/14 William Perez DO 234 [facility] 7 [place] [address] [email or web address] Insurance Assigned Provider 06/01/23 Garret Colon MD [address] [place] [address] [email or web address] Primary Oncologist Medical Oncology 01/26/20 Glenny Cerda FNP [address] [place] [address] [email or web address] Nurse Practitioner Medical Oncology 05/22/22 09/28/24 documented as of this encounter Additional Source Comments The information contained in this document represents components of the legal health record. It is not the complete legal health record.[facility]
--- OUTSIDE RECORDS SUMMARY | 2024-11-27 10:06 | XMS_ITS | Encounter Summary ---
Author Organization [facility] Address [address] [place] [address] Phone Care Team Providers Care Metalsmith Helper Name Role Phone William Perez DO Primary Care Provider [phone] William Perez DO Unavailable Garret Colon MD Unavailable [phone] Glenny Cerda Unavailable [phone] Encounter Details Date Type Department Care Team (Late st Contact Info) Description 02/12/2023 Procedure Pass [facility], [address] [address] Social History Tobacco Use Types Packs/Day Years [...] Description 12/11/2024 10:00 AM EDT Office Visit [facility] [address] [place] [address] William Perez DO [address] [address] [email or web address] documented as of this encounter Visit Diagnoses Not on filedocumented in this encounter Additional Health Concerns Assessment Noted Time PHQ-2 Depression Total Score: 0 11/29/19 23 9:02 AM EDT documented as of this encounter Care Teams Metalsmith Helper Relationship Specialty Start Date End Date William Perez DO [address] [address] [email or web address] PCP - General 03/12/14 William Perez DO [address] [place] [address] Insurance Assigned Provider 06/01/23 Garret Colon MD [address] [place] [address] Primary Oncologist Medical Oncology 01/26/20 Glenny Cerda FNP 30 [place] [address] Nurse Practitioner Medical Oncology 05/22/22 09/28/24 documented as of this encounter Additional Source Comments The information contained in this document represents components of the legal health record. It is not the complete legal health record.[facility]
--- OUTSIDE RECORDS SUMMARY | 2024-11-27 10:06 | XMS_ITS | Encounter Summary ---
Author Organization [employer] [facility] Address [address] [place] [address] [place] [address] Phone Care Team Providers Care Riprap Worker Name Role Phone William Perez DO Primary Care Provider William Perez DO Unavailable Garret Colon MD Unavailable [phone] Glenny CerdaP Unavailable Encounter Details Date Type Department Care Team (Late st Contact Info) Description 05/23/2022 Procedure Pass [facility], [address] [address] Social History Tobacco Use Types Packs/Day Years [...] Description 12/11/2024 10:00 AM EDT Office Visit [address] [address] William Perez DO 234 [facility], [address] [place] [address] [email or web address] documented as of this encounter Visit Diagnoses Not on filedocumented in this encounter Additional Health Concerns Infection Onset Date Last Indicated Resolved Time 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 05/30/2018 09/21/2022 1:23 AM EDT Assessment Noted Time PHQ-2 Depression Total Score: 0 11/09/19 10:35 AM EDT documented as of this encounter Care Teams Riprap Worker Relationship Specialty Start Date End Date William Perez DO 234 [facility] 7 [place] [address] [email or web address] PCP - General 03/12/14 William Perez DO 234 [facility] [address] [place] [address] [email or web address] Insurance Assigned Provider 06/01/23 Garret Colon MD [address] [place] [address] [email or web address] Primary Oncologist Medical Oncology 01/26/20 Glenny Cerda FNP [address] [place] [address] [email or web address] Nurse Practitioner Medical Oncology 05/22/22 09/28/24 documented as of this encounter Additional Source Comments The information contained in this document represents components of the legal health record. It is not the complete legal health record.[facility]
--- OUTSIDE RECORDS SUMMARY | 2024-11-27 10:06 | XMS_ITS | Encounter Summary ---
Author Organization [employer] [facility] Address [address] [place] [address] [place] [address] Phone Care Team Providers Care Hand I Cutter Name Role Phone William Perez DO Primary Care Provider [phone] William Perez DO Unavailable Garret Colon MD Unavailable [phone] Glenny Cerda BUN MACHINE OPERATOR Unavailable [phone] Encounter Details Date Type Department Care Team (Late Contact Info) Description 08/01/2018 Transcribe Orders [address] [place] [address] Misa Cobian PA-C 30 [place] [address] [email or web address] Other iron deficiency anemia (Primary Dx) Social History Tobacco Use Types [...] EDT Office Visit [facility] 234 [place] [address] William Perez DO [address] [address] [email or web address] documented as of this encounter Visit Diagnoses Diagnosis Other iron deficiency anemia- Primary documented in this encounter Additional Health Concerns Infection Onset Date Last Indicated Resolved Time 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 05/30/2018 09/21/2022 1:23 AM EDT CoV-Exposed Comment:Recent close contact 03/07/2020 03/07/2020 03/21/2020 1:24 AM EST CoV-Risk 12/02/2020 12/02/2020 12/12/2020 1:22 AM EDT CoV-Risk 07/13/2021 07/13/2021 07/24/2021 1:22 AM EDT CoV-Presumed 07/26/2021 07/26/2021 08/16/2021 1:23 AM EDT documented as of this encounter Care Teams Hand I Cutter Relationship Specialty Start Date End Date William Perez DO [address] [address] PCP - General 03/12/14 William Perez DO [address] [place] [address] Insurance Assigned Provider 06/01/23 Garret Colon MD [address] [place] [address] Primary Oncologist Medical Oncology 01/26/20 Glenny Cerda FNP [address] [place] [address] [email or web address] Nurse Practitioner Medical Oncology 05/22/22 09/28/24 documented as of this encounter Additional Source Comments The information contained in this document represents components of the legal health record. It is not the complete legal health record.[facility]
--- OUTSIDE RECORDS SUMMARY | 2024-11-27 10:06 | XMS_ITS | Encounter Summary ---
Author Organization [facility] Address [address] [place] [address] Phone Care Team Providers Care Weed Sprayer Name Role Phone William Perez DO Primary Care Provider [phone] William Perez DO Unavailable Garret Colon MD Unavailable [phone] Glenny Cerda Unavailable [phone] Encounter Details Date Type Department Care Team (Late st Contact Info) Description 02/12/2023 Procedure Pass [facility], [address] [address] Social History Tobacco Use Types Packs/Day Years [...] Description 12/11/2024 10:00 AM EDT Office Visit [facility] [address] [place] [address] William Perez DO [address] [address] [email or web address] documented as of this encounter Visit Diagnoses Not on filedocumented in this encounter Additional Health Concerns Assessment Noted Time PHQ-2 Depression Total Score: 0 11/29/19 23 9:02 AM EDT documented as of this encounter Care Teams Weed Sprayer Relationship Specialty Start Date End Date William Perez DO [address] [address] [email or web address] PCP - General 03/12/14 William Perez DO [address] [place] [address] Insurance Assigned Provider 06/01/23 Garret Colon MD [address] [place] [address] Primary Oncologist Medical Oncology 01/26/20 Glenny Cerda FNP 30 [place] [address] Nurse Practitioner Medical Oncology 05/22/22 09/28/24 documented as of this encounter Additional Source Comments The information contained in this document represents components of the legal health record. It is not the complete legal health record.[facility]
--- OUTSIDE RECORDS SUMMARY | 2024-11-27 10:06 | XMS_ITS | Encounter Summary ---
Author Organization [facility] Address [address] [place] [address] Phone Care Team Providers Care Dog Behaviorist Name Role Phone William Perez DO Primary Care Provider [phone] William Perez DO Unavailable Garret Colon MD Unavailable [phone] Glenny Cerda Unavailable Encounter Details Date Type Department Care Team (Late st Contact Info) Description 11/07/2018 Procedure Pass [facility] [address] [place] [address] Social History Tobacco Use Types Packs/Day Years [...] EDT Office Visit [facility] [address] [place] [address] William Perez DO 234 [facility] 7 [place] [address] [email or web address] documented [...] documented as of this encounter Care Teams Dog Behaviorist Relationship Specialty Start Date End Date William Perez DO [address] [address] [email or web address] PCP - General 03/12/14 William Perez DO [address] [address] [email or web address] Insurance Assigned Provider 06/01/23 Garret Colon MD [address] [place] [address] [email or web address] Primary Oncologist Medical Oncology 01/26/20 Glenny Cerda FNP [address] [place] [address] [email or web address] Nurse Practitioner Medical Oncology 05/22/22 09/28/24 documented as of this encounter Additional Source Comments The information contained in this document represents components of the legal health record. It is not the complete legal health record.[facility]
--- OUTSIDE RECORDS SUMMARY | 2024-11-27 10:07 | XMS_ITS | Encounter Summary ---
Author Organization [facility] Address [address] [place] [address] [place] [address] Phone Care Team Providers Care Residential Counselor Name Role Phone William Perez DO Primary Care Provider [phone] William Perez DO Unavailable Garret Colon MD Unavailable [phone] Glenny CerdaP Unavailable Encounter Details Date Type Department Care Team (Latest Contact Info) Description 10/16/2017 Transcribe Orders [address] [place] [address] Areli Moreland, DO [address] [place] [address] [email or web address] Chronic myeloid leukemia (Primary Dx) Social History Tobacco Use Types [...] Description 12/11/2024 10:00 AM EDT Office Visit [facility] [address] [place] [address] William Perez DO [address] [facility], [address] [place] [address] [email or web address] documented as of this encounter Results * (ABNORMAL) CBC and differential (10/16/2017 11:49 AM EDT) WBC 5.23 3.40 - 11.20 K/uL [facility] RBC 3.32(L) 4.50 - 5.50 M/uL [facility] HGB 11.6(L) 13.0 - 17.0 g/dL [facility] HCT 33.4(L) 40.0 - 51.0 % [facility] PLT 215 130 - 400 K/uL [facility] MCV 100.6(H) 79.0 - 98.0 fL [facility] MCH 34.9(H) 27.0 - 34.8 pg [facility] MCHC 34.7 31.5 - 36.0 g/dL [facility] RDW 13.2 10.8 - 14.6 % [facility] MPV 10.0 9.4 - 12.4 fl [facility] NRBC 0.00 /100 WBCs [facility] ABSOLUTE NRBC 0.00 K/uL [facility] DIFF METHOD Auto [facility] NEUTS 65.7 45.30 - 77.70 % [facility] LYMPHS 18.5 12.30 - 39.70 % [facility] MONOS 11.5 4.10 - 12.80 % [facility] EOS 3.3 0 - 7.2 % [facility] BASOS 0.6 0 - 2.80 % [facility] Granulocytes, immature (%) 0.4 0.0 - 0.9 % [facility] ABSOLUTE NEUTS 3.44 1.40 - 7.70 K/uL [facility] ABSOLUTE LYMPHS 0.97 0.60 - 3.20 K/uL [facility] ABSOLUTE MONOS 0.60(H) 0.11 - 0.59 K/uL [facility] ABSOLUTE EOS 0.17 0.01 - 0.50 K/uL [facility] ABSOLUTE BASOS 0.03 0.00 - 0.08 K/uL [facility] Granulocytes, immature 0.02 0.00 - 0.05 K/uL [facility] Blood 10/16/2017 11:4 9 AM EDT 10/16/2017 11:56 AM EDT Areli Moreland LAB BLOOD ORDERABLES Final Result [facility] [address] [place], [place] [id number] * (ABNORMAL) Comprehensive metabolic panel (10/16/2017 11:49 AM EDT) SODIUM 141 133 - 146 mmol/L [facility] POTASSIUM 4.1 3.3 - 5.1 mmol/L [facility] CHLORIDE 105 96 - 108 mmol/L [facility] CO2 24 21 - 35 mmol/L [facility] BUN 18 6 - 19 mg/dL [facility] CREATININE 0.60 0.5 - 1.5 mg/dL [facility] GLUCOSE 108(H) 70 - 99 mg/dL [facility] ALBUMIN 3.6(L) 3.9 - 4.8 g/dL [facility] TOTAL PROTEIN 5.9(L) 6.5 - 8.0 g/dL [facility] CALCIUM 9.0 8.4 - 10.3 mg/dL [facility] ALKALINE PHOSPHATASE 100 39 - 117 U/L [facility] TOTAL BILIRUBIN 0.2 0.0 - 1.2 mg/dL [facility] AST 24 0 - 37 U/L [facility] ALT 18 0 - 40 U/L [facility] GLOBULIN 2.3 1 - 4.8 g/dL [facility] EGFR 110 >59 mL/min/1.7 3m2 [facility] Comment:If patient is black, multiply result by 1.159. Estimated glomerular filtration rate calculated using the CKD-EPI equation. ANION GAP 16 10 - 20 mmol/L [facility] Blood 10/16/2017 11:4 9 AM EDT 10/16/2017 11:56 AM EDT us Areli Moreland DO LAB BLOOD ORDERABLES Final Result [facility] [address] [place] [address] * BCR/ABL1, gene rearrangement RNA Qualitative PCR (10/16/2017 11:49 AM EDT) Diagnostic BCR/ABL1 Result see interpretation [facility] DPT OF LAB MED AND PAT+ Specimen Type EDTA WB [facility] DPT OF LAB MED AND PAT+ Final Diagnosis/Interpre tation SEE NOTE [facility] DPT OF LAB MED AND PAT+ Comment: (NOTE) Peripheral blood, BCR/ABL1 mRNA analysis, qualitative: Negative. No BCR/ABL1 mRNA transcripts were detected. Signing Pathologist: Bety Price M.D. ADDITIONAL INFORMATION Method summary-BCR/ABL1, qualitative: The presence or absence of BCR/ABL1 mRNA transcripts was evaluated using a qualitative, reverse registered medical transcriptionist PCR-based assay. The detection sensitivity limit for this assay is 0.1%. The assay detects essentially all published and theoretical BCR/ABL1 fusion forms and is intended to identify but not quantitate the specific fusion form of BCR/ABL1 at the time of diagnosis. Based on the identified fusion form, for future quantitative monitoring, please order test BCRAB (BCR/ABL, p210, Quant Monitor) for a p210 fusion form and test BA190 (BCR/ABL, p190, Quant, Monitor) for a p190 fusion form. Other rare fusion forms such as p230 or p205 cannot be quantitatively monitored by either BCRAB or BA190, and qualitative monitoring using the current test (BADX) could be considered if desired. Please contact the lab at [phone] with questions or if additional testing is required. See the [facility] Interpretive handbook for method details. This test was developed and its performance characteristics determined by [facility] in a manner consistent with CLIA requirements. This test has not been cleared or approved by the U.S. Food and Drug Administration. This test was developed and its performance characteristics determined by [facility] in a manner consistent with CLIA requirements. This test has not been cleared or approved by the U.S. Food and Drug Administration. Blood 10/16/2017 11:4 9 AM EDT 10/16/2017 11:56 AM EDT [facility] BLOOD ORDERABLES Final Result [facility] DPT OF LAB MED AND PAT+ [address] [place] [address] documented in this encounter Visit Diagnoses Diagnosis Chronic myeloid leukemia- Primary Chronic myeloid leukemia, without mention of having achieved remission [...] documented as of this encounter Care Teams Residential Counselor Relationship Specialty Start Date End Date William Perez DO [address] [place] [address] [address] [place] [address] [email or web address] PCP - General 03/12/14 William Perez DO [address] [place] [address] 7 [place] [address] Insurance Assigned Provider 06/01/23 Garret Colon MD [address] [place] [address] Primary Oncologist Medical Oncology 01/26/20 Glenny Cerda FNP [address] [place] [address] Nurse Practitioner Medical Oncology 05/22/22 09/28/24 documented as of this encounter Additional Source Comments The information contained in this document represents components of the legal health record. It is not the complete legal health record.[facility]
--- OUTSIDE RECORDS SUMMARY | 2024-11-27 10:07 | XMS_ITS | Encounter Summary ---
Author Organization [facility] Address [address] [place] [address] [place] [address] Phone Care Team Providers Care Junior Sales Assistant Name Role Phone William Perez DO Primary Care Provider [phone] William Perez DO Unavailable Garret Colon MD Unavailable [phone] Glenny Cerda Unavailable [phone] Encounter Details Date Type Department Care Team (Late st Contact Info) Description 08/19/2018 Procedure Pass [address] [place] [address] Social History Tobacco Use Types Packs/Day Years [...] Description 12/11/2024 10:00 AM EDT Office Visit [address] [address] William Perez DO [address] [address] [email or web address] documented as of this encounter Visit Diagnoses [...] documented as of this encounter Care Teams Junior Sales Assistant Relationship Specialty Start Date End Date William Perez DO [address] [place] [address] [email or web address] PCP - General 03/12/14 William Perez DO [address] [place] [address] [email or web address] Insurance Assigned Provider 06/01/23 Garret Colon MD [address] [place] [address] [email or web address] Primary Oncologist Medical Oncology 01/26/20 Glenny Cerda FNP [address] [place] [address] [email or web address] Nurse Practitioner Medical Oncology 05/22/22 09/28/24 documented as of this encounter Additional Source Comments The information contained in this document represents components of the legal health record. It is not the complete legal health record.[facility]
--- OUTSIDE RECORDS SUMMARY | 2024-11-27 10:07 | XMS_ITS | Encounter Summary ---
Author Organization [employer] [facility] Address [address] [place] [address] [place] [address] Phone Care Team Providers Care Processor Inspector Name Role Phone William Perez DO Primary Care Provider [phone] William Perez DO Unavailable Garret Colon MD Unavailable [phone] Glenny Cerda RADIOLOGY INTERVENTIONAL PHYSICIAN Unavailable Encounter Details Date Type Department Care Team (Latest Contact Info) Description 09/09/2018 Transcribe Orders [address] [place] [address] Collins Phillips MD [address] [place], [place] [email or web address] Vascular disorder of skin (Primary Dx) Social History Tobacco Use Types [...] 12/11/2024 10:00 AM EDT Office Visit [facility] [address] [place] [address] William Perez DO 234 [facility] [address] [place] [address] [email or web address] documented as of this encounter Results * (ABNORMAL) 25-OH vitamin D (09/09/2018 10:59 AM EDT) 25 OH VIT D (TOTAL) 22(L) 30 - 60 ng/mL [facility] Blood 09/09/2018 10:5 9 AM EDT 09/09/2018 11:03 AM EDT us Collins Phillips MD LAB BLOOD ORDERABLES Final Re sult Performing Organization Address City/State/[facility] Co de Phone Number [facility] [address] [place] [address] documented in this encounter Visit Diagnoses Diagnosis Vascular disorder of skin- Primary documented in this encounter Additional Health Concerns Infection Onset Date Last Indicated Resolved Time 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 05/30/2018 09/21/2022 1:23 AM EDT CoV-Exposed Comment:Recent close contact 03/07/2020 03/07/2020 03/21/2020 1:24 AM EST CoV-Risk 12/02/2020 12/02/2020 12/12/2020 1:22 AM EDT CoV-Risk 07/13/2021 07/13/2021 07/24/2021 1:22 AM EDT CoV-Presumed 07/26/2021 07/26/2021 08/16/2021 1:23 AM EDT documented as of this encounter Care Teams Processor Inspector Relationship Specialty Start Date End Date William Perez DO 234 [facility] 7 [place] [address] [email or web address] PCP - General 03/12/14 William Perze DO [address] [place] [address], [address] [place] [address] [email or web address] Insurance Assigned Provider 06/01/23 Garret Colon MD [address] [place] [address] [email or web address] Primary Oncologist Medical Oncology 01/26/20 Glenny Cerda FNP [address] [place] [address] [email or web address] Nurse Practitioner Medical Oncology 05/22/22 09/28/24 documented as of this encounter Additional Source Comments The information contained in this document represents components of the legal health record. It is not the complete legal health record.[facility]
--- OUTSIDE RECORDS SUMMARY | 2024-11-27 10:07 | XMS_ITS | Encounter Summary ---
Author Organization [employer] [facility] Address [address] [place] [address] [place] [address] Phone Care Team Providers Care Aircraft Power Plant Assembler Name Role Phone William Perez DO Primary Care Provider [phone] William Perez DO Unavailable Garret Colon MD Unavailable [phone] Glenny Cerda Unavailable [phone] Encounter Details Date Type Department Care Team (Late st Contact Info) Description 09/03/2018 Procedure Pass [address] [place] [address] Social History Tobacco Use Types Packs/Day Years [...] Description 12/11/2024 10:00 AM EDT Office Visit [address] [address] William Perez DO [address] [address] [email or web address] documented as [...] documented as of this encounter Care Teams Aircraft Power Plant Assembler Relationship Specialty Start Date End Date William Perez DO [address] [place] [address] [email or web address] PCP - General 03/12/14 William Perez DO [address] [place] [address] [email or web address] Insurance Assigned Provider 06/01/23 Garret Colon MD [address] [place] [address] [email or web address] Primary Oncologist Medical Oncology 01/26/20 Glenny Cerda FNP [address] [place] [address] [email or web address] Nurse Practitioner Medical Oncology 05/22/22 09/28/24 documented as of this encounter Additional Source Comments The information contained in this document represents components of the legal health record. It is not the complete legal health record.[facility]
--- OUTSIDE RECORDS SUMMARY | 2024-11-27 10:07 | XMS_ITS | Encounter Summary ---
Author Organization [employer] [facility] Address [address] [place] [address] Phone Care Team Providers Care Enterprise Architect Name Role Phone William Perez DO Primary Care Provider [phone] William Perez DO Unavailable Garret Colon MD Unavailable [phone] Glenny Cerda Unavailable [phone] Reason for Referral * MRI/CAT Scan - Closed Specialty Diagnoses / Procedures Referred By Sarai martinez Referred To Contact Radiology Diagnoses Low back pain, unspecified back pain laterality, unspecified chronicity, with sciatica presence unspecified Incontinence of feces, unspecified fecal incontinence type Procedures MRI Lumbar Spine Alida Mason NP [address] [address] Phone: tel: fax: Referral ID Status Reason Start Date Expiration Date Visits Re quested Visits Authorized [id number] Closed 09/03/2018 09/03/2019 1 1 Encounter Details Date Type Department Care Team (Latest Contact Info) Description 09/03/2018 Transcribe Orders Virtual Department [address] [place] [address] Alida Mason NP [address] [address] Low back pain, unspecified back pain laterality, unspecified chronicity, with sciatica presence unspecified (Primary Dx); Incontinence of feces, unspecified fecal incontinence type Social History Tobacco Use Types Packs/Day Years [...] Description 12/11/2024 10:00 AM EDT Office Visit [address] [address] William Perez DO 234 [facility] [address] [place] [address] [email or web address] documented as of this encounter Results * MRI LUMBAR SPINE (BONE) WITHOUT CONTRAST (09/17/2018 10:36 AM EDT) Anatomical Region Laterality Modality L-spine Magnetic Resonan ce 09/17/2018 1:59 PM EDT Impressions 09/17/2018 2:10 PM EDT No significant canal or neuroforaminal stenosis. Degenerative changes are minimally progressed from 2017. POS - [id number] Narrative 09/17/2018 2:10 PM EDT EXAM: MRI LUMBAR SPINE (BONE) WITHOUT CONTRAST COMPARISON: April 23, 2016 HISTORY: + PAIN IN LOW BACK [SIGN/SX] BOWEL INCONTINENCE TECHNIQUE: Exam performed on a 1.5 Mignon high-field MRI scanner. Magnetic resonance imaging of the lumbar spine was performed WITHOUT injected contrast using standard department protocols. Sagittal T1, T2 and STIR, axial T1 and T2 sequences were obtained. FINDINGS: ALIGNMENT: Anatomic alignment is maintained. No anterior or posterior subluxations. VERTEBRAL BODIES: Vertebral body heights are maintained. Bone marrow signal pattern is within normal limits. INTERVERTEBRAL DISCS: Desiccation changes from L3 to S1 levels. Mild loss of disc height of the posterior aspect of L5-S1 disc. Minimal loss of disc height at L3- L4. SPINAL CORD/CONUS: Included spinal cord has normal caliber and signal characteristics. The conus terminates normally at L1 level. Level by level analysis yields the following: L1-2: No disc herniation. No significant canal or neuroforaminal stenosis. L2-3: No disc herniation. No significant canal or neuroforaminal stenosis. L3-4: Bulging disc, minimally progressed from 2017. No significant canal or neuroforaminal stenosis. L4-5: No disc herniation. No significant canal or neuroforaminal stenosis. L5-S1: Bulging disc with superimposed right central disc extrusion with inferior migration contributes to mild left neuroforaminal narrowing. The disc material contacts the right S1 traversing nerve root as well as the left exiting L5 nerve root. No significant canal or right neuroforaminal stenosis. Findings are not significantly progressed from 2017 study. OTHERS:Multiple bilateral renal lesions, likely cysts, many of the with hemorrhagic content grossly unchanged from comparison study.. Posterior paraspinal soft tissues are unremarkable. Procedure Note Kate Hedrick MD - 09/17/2018 EXAM: MRI LUMBAR SPINE (BONE) WITHOUT CONTRAST COMPARISON: April 23, 2016 HISTORY: + PAIN IN LOW BACK [SIGN/SX] BOWEL INCONTINENCE TECHNIQUE: Exam performed on a 1.5 Mignon high-field MRI scanner. Magneticresonance imaging of the lumbar spine was performed WITHOUT injectedcontrast using standard department protocols. Sagittal T1, T2 and STIR,axial T1 and T2 sequences were obtained. FINDINGS: ALIGNMENT: Anatomic alignment is maintained. No anterior or posteriorsubluxations. VERTEBRAL BODIES: Vertebral body heights are maintained. Bone marrowsignal pattern is within normal limits. INTERVERTEBRAL DISCS: Desiccation changes from L3 to S1 levels. Mild lossof disc height of the posterior aspect of L5-S1 disc. Minimal loss of discheight at L3- L4. SPINAL CORD/CONUS: Included spinal cord has normal caliber and signalcharacteristics. The conus terminates normally at L1 level. Level by level analysis yields the following: L1-2: No disc herniation. No significant canal or neuroforaminalstenosis. L2-3: No disc herniation. No significant canal or neuroforaminalstenosis. L3-4: Bulging disc, minimally progressed from 2017. No significant canalor neuroforaminal stenosis. L4-5: No disc herniation. No significant canal or neuroforaminalstenosis. L5-S1: Bulging disc with superimposed right central disc extrusion withinferior migration contributes to mild left neuroforaminal narrowing. Thedisc material contacts the right S1 traversing nerve root as well as theleft exiting L5 nerve root. No significant canal or right neuroforaminalstenosis. Findings are not significantly progressed from 2017 study. OTHERS:Multiple bilateral renal lesions, likely cysts, many of the withhemorrhagic content grossly unchanged from comparison study.. Posteriorparaspinal soft tissues are unremarkable. IMPRESSION: No significant canal or neuroforaminal stenosis. Degenerative changes areminimally progressed from 2017. POS - [id number] Alida Mason [employer] FOUNDER AND [employer] IMG MR XSPECIALTY Fi nal Result documented in this encounter Visit Diagnoses Diagnosis Low back pain, unspecified back pain laterality, unspecified chronicity, with sciatica presence unspecified- Primary Incontinence of feces, unspecified fecal incontinence type Low back pain, unspecified back pain laterality, unspecified chronicity, with sciatica presence unspecified Incontinence of feces, unspecified fecal incontinence type documented in this encounter Additional Health Concerns Infection Onset Date Last Indicated Resolved Time 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 05/30/2018 09/21/2022 1:23 AM EDT CoV-Exposed Comment:Recent close contact 03/07/2020 03/07/2020 03/21/2020 1:24 AM EST CoV-Risk 12/02/2020 12/02/2020 12/12/2020 1:22 AM EDT CoV-Risk 07/13/2021 07/13/2021 07/24/2021 1:22 AM EDT CoV-Presumed 07/26/2021 07/26/2021 08/16/2021 1:23 AM EDT documented as of this encounter Care Teams Enterprise Architect Relationship Specialty Start Date End Date William Perez DO 234 [facility], [address] [place] [address] [email or web address] PCP - General 03/12/14 William Perez DO 234 [facility], [address] [place] [address] [email or web address] Insurance Assigned Provider 06/01/23 Garret Colon MD 30 [place] [address] [email or web address] Primary Oncologist Medical Oncology 01/26/20 Glenny Cerda FNP [address] [place] [address] [email or web address] Nurse Practitioner Medical Oncology 05/22/22 09/28/24 documented as of this encounter Additional Source Comments The information contained in this document represents components of the legal health record. It is not the complete legal health record.[facility]
--- OUTSIDE RECORDS SUMMARY | 2024-11-27 10:07 | XMS_ITS | Encounter Summary ---
Author Organization [facility] Address [address] [place] [address] [place] [phone] Phone Care Team Providers Care Solar Business Developer Name Role Phone William Perez DO Primary Care Provider [phone] William Perez DO Unavailable Garret Colon MD Unavailable [phone] Glenny Cerda ACID TREATER Unavailable Encounter Details Date Type Department Care Team (Latest Contact Info) Description 10/01/2019 Transcribe Orders [address] [place] [address] Collins Phillips MD [address] [place], [place] Vitamin D deficiency (Primary Dx) Social History Tobacco Use Types [...] 12/11/2024 10:00 AM EDT Office Visit [facility] [address] [place] [address] William Perez DO [address] [facility] [address] [place] [address] [email or web address] documented as of this encounter Results * (ABNORMAL) 25-OH vitamin D (10/01/2019 11:46 AM EDT) 25 OH VIT D (TOTAL) 26(L) 30 - 60 ng/mL [facility] Blood 10/01/2019 11:4 6 AM EDT 10/01/2019 11:49 AM EDT us Collins Phillips MD LAB BLOOD ORDERABLES Final Re sult Performing Organization Address City/State/[facility] Co de Phone Number [facility] [address] [place] [address] documented in this encounter Visit Diagnoses Diagnosis Vitamin D deficiency- Primary documented in this encounter Additional Health Concerns Infection Onset Date Last Indicated Resolved Time 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 05/30/2018 09/21/2022 1:23 AM EDT CoV-Exposed Comment:Recent close contact 03/07/2020 03/07/2020 03/21/2020 1:24 AM EST CoV-Risk 12/02/2020 12/02/2020 12/12/2020 1:22 AM EDT CoV-Risk 07/13/2021 07/13/2021 07/24/2021 1:22 AM EDT CoV-Presumed 07/26/2021 07/26/2021 08/16/2021 1:23 AM EDT documented as of this encounter Care Teams Solar Business Developer Relationship Specialty Start Date End Date William Perez DO [address] [place] [address] [address] [place] [address] [email or web address] PCP - General 03/12/14 William Perez DO [address] [place] [address] [address] [place] [address] [email or web address] Insurance Assigned Provider 06/01/23 Garret Colon MD [address] [place] [phone] [email or web address] Primary Oncologist Medical Oncology 01/26/20 Glenny Cerda FNP [address] [place] [phone] [email or web address] Nurse Practitioner Medical Oncology 05/22/22 09/28/24 documented as of this encounter Additional Source Comments The information contained in this document represents components of the legal health record. It is not the complete legal health record.[facility]
--- OUTSIDE RECORDS SUMMARY | 2024-11-27 10:07 | XMS_ITS | Clinical Summary ---
Author Organization [facility] Address [address] [place] [phone] Phone Care Team Providers Care Rolloff Driver Name Role Phone William Perez DO Primary Care Provider [phone] William Perez DO Unavailable Garret Colon MD Unavailable [phone] Allergies Active Allergy Reactions Criticality Noted Date Comments Celexa (Citalopram) 10/25/2015 Serotonin 5ht-3 Antagonists Unknown 11/25/19 25 Medications MAG HYDROX/AL HYDROX/SIMETH (MAALOX ORAL) Take 30 mL by mouth every 6 (six) hours as needed. Active tolnaftate 1 % powder Apply topically as needed for itching. Active FLUoxetine (PROZAC) 20 MG capsule daily. Active multivitamins capsule Take 1 capsule by mouth daily. Active Lactobac no.41/Bifidobact no.7 (PROBIOTIC-10 ORAL)Indications: as directed Take by mouth. Indications: as directed Active urea/emollient cmb no.18 (UREA-EMOLLIENT COMB NO.18 TOP) by Topical (Top) route. Active omeprazole (PRILOSEC) 20 MG capsuleIndication s:Gastroesophagea l reflux disease TAKE 1 CAPSULE BY MOUTH TWICE DAILY FOR GERD MANAGEMENT TAKE ON EMPTY STOMACH/ NOT TO BE GIVEN WITH OTHER MEDS (PRILOSEC) 60 capsule 11 020 Active miscellaneous medical supply MiscIndications:R ight foot drop Low profile insert, B/L shoes. 1 each 1 023 Active bisacodyl (DULCOLAX) 5 mg EC tablet 023 Active GAVILYTE-G 236-22.74-6.74 -5.86 gram solution 023 Active SF 5000 PLUS 1.1 % Crea USE THIN RIBBON TO BRUSH THOROUGH X TWO MINS IN AM OR PM AND EXPECTORATE HERBERT ALLOWS DON'T EAT/DRINK/RINSE X 30 MINS ROOSEVELT R FOR REFUSAL / IC DENTA 51 g 10 023 Active bacitracin zinc ointmentIndicatio ns:Medication refill APPLY THIN LAYER 2X DAILY NEEDED SUPERFICIAL ABRASIONS X 7 DAYS FOR INFECTION PROTECTION CALL MD S/S INFECTION DEVELOP 28.4 g 5 023 Active sennosides (SENNA LAXATIVE ORAL) Take by mouth as needed (no BM 3 days). Active fluticasone propionate (FLONASE) 50 mcg/actuation nasal sprayIndications: Allergic rhinitis 2 SPRAYS TO EACH NOSTRIL DAILY IN AM FOR SINUSITIS MGMT (GENERIC FLONASE) 16 g 5 024 Active methylcellulose (CITRUCEL) oral powderIndications :1 TBSP Take 2 g by mouth daily. Indications: 1 TBSP 850 g 3 024 Active BIOTENE DRY MOUTH ORAL RINSE Mwsh SWISH+SPIT 10 ML BY MOUTH IN THE AM OR PM PATIENT ALLOWS/DRY MOUTH MNGMNT/ROOSEVELT R FOR REFUSAL IF REFUSES INITIAL, DOUGLAS + WRITE PROGRESS NOTE BACK OF APR 1 mL 2 024 Active Medication-Free Text Bag balm daily at hs 1 Stick 5 024 Active STOMACH RELIEF 262 mg/15 mL suspensionIndicat ions:GERD (gastroesophageal reflux disease) TAKE 30ML(525MG) BY MOUTH EVERY 6 HRS NEEDED FOR GASTRIC UP- SET/HEARTBURN/C ALL MD IF SX LAST MORE THAN 3 DAYS/BISMUTH SUBSAL- ICYLATE 262.5MG/15ML/BI SMATROL 236 mL 024 Active sucralfate (CARAFATE) 1 gram tabletIndications :CLL (chronic lymphocytic leukemia) TAKE 1 TABLET BY MOUTH TWICE DAILY ON AN EMPTY STOMACH FOR GASTRITIS DO NOT TAKE WITH ANTACIDS 60 tablet 11 024 Active pantoprazole (PROTONIX) 20 MG tabletIndications :Gastroesophageal reflux disease without esophagitis TAKE 1 TABLET BY MOUTH ONCE DAILY FOR GERD MANAGEMENT IN THE MORNING 30 tablet 11 024 Active TORIBIO-TUSSIN 100 mg/5 mL syrupIndications: Cough TAKE 10ML(200 MG) BY MOUTH EVERY 4 HRS NEEDED COUGH/COLD SYMP- TOMS (MAX 60 ML/24HRS) CALL MD IF SYMPTOMS LAST MORE THAN 72HRS (TUSSIN-MUCUS CONGEST 100MG/5ML) 118 mL 5 025 Active ondansetron (ZOFRAN) 4 MG tabletIndications :Nausea TAKE 1 TABLET BY MOUTH EVERY 6 HOURS NEEDED FOR NAUSEA CALL MD IF NAUSEA LASTS AFTER 48 HRS / IC: ZOFRAN 6 tablet 1 025 Active diclofenac sodium (VOLTAREN) 1 % GelIndications:Ri ght leg pain Apply 4 g topically 2 (two) times a day for 14 days. 112 g 025 Active ferrous gluconate 324 mg (38 mg elemental) tabletIndications :Iron deficiency TAKE 1 TABLET BY MOUTH TWICE DAILY SUPPLEMENT 60 tablet 11 025 Active acetaminophen (TYLENOL) 325 mg tabletIndications :Medication refill TAKE 2 TABS (650 MG) BY MOUTH EVERY 4 HRS FOR TEMP GREATER THAN 99/MINOR PAIN/NTE 5 DOSE/24 HRS/CALL MD IF NO RELIEF W/IN 48 HRS/TYLENOL/HERBERT VERBALIZES PAIN 30 tablet 3 025 Active melatonin 3 mg TabIndications:In somnia TAKE 1 TABLET BY MOUTH EVERY EVENING FOR SLEEP 90 tablet 3 025 Active cholecalciferol (VITAMIN D3) 25 MCG (1,000 unit) tabletIndications :Medication refill TAKE 2 TABLETS (2,000 UNITS) BY MOUTH DAILY IN AM SUPPLEMENT 60 tablet 11 025 Active imatinib (GLEEVEC) 100 MG tabletIndications :CML (chronic myelocytic leukemia) TAKE 2 TABLETS (200 MG) BY MOUTH DAILY WITH A MEAL AND A LARGE GLASS OF WATER EVERY PM FOR CML MGMT / WEAR GLOVES WHEN HANDLING MED / IC: GLEEVEC 60 tablet 5 025 Active meloxicam (MOBIC) 15 MG tablet Take 1 tablet (15 mg total) by mouth daily. 14 tablet Active FISH OIL 1,200 (144-216) mg CapIndications:Me dication refill TAKE 1 CAPSULE BY MOUTH TWICE DAILY FOR MOOD STABILITY 180 capsule 3 Active multivitamin with folic acid (THERA) 400 mcg tabletIndications :Medication refill TAKE 1 TABLET BY MOUTH DAILY IN THE AM A SUPPLEMENT 30 tablet 11 Active diclofenac sodium (VOLTAREN) 1 % Gel Apply 2 g topically 4 (four) times a day. 150 g Active cholestyramine (QUESTRAN) 4 gram packetIndications :Loose stools,Mixed hyperlipidemia MIX ONE PACKET WITH APPLESAUCE EVERY EVENING FOR LOOSE STOOL PREVENTION / BRUSH TEETH AFTER Strength: 4 gram 60 packet Active magnesium hydroxide 400 mg/5 mL SuspIndications:C onstipation TAKE 2 TABLESPOONS(30 ML) BY MOUTH EVERY OTHER DAY PATIENT REQUESTS FOR CONSTIPATION 30 ML=2,400MG/SEE BOWEL PROTOCOL 450 mL Active calcium carb,gluc-mag gluc,ox (CALCIUM MAGNESIUM) 500 mg calcium- 250 mg Tab Take 1 tablet by mouth 3 (three) times a day. 270 tablet 3 025 2025 Active cetirizine (ZYRTEC) 10 MG tabletIndications :Allergic rhinitis TAKE 1 TABLET BY MOUTH DAILY IN THE AM FOR ALLERGIES 30 tablet 11 Active FIBER THERAPY, M-CELL/SUGAR, 2 gram/19 gram oral powder MIX 15ML(2GM) IN 8 OZ FLUID OF CHOICE AND TAKE BY MOUTH DAILY IN PM / TAKE 1/2 HR BEFORE/ AFTER OTHER MEDS 454 g 3 025 Active senna-docusate (STIMULANT LAXATIVE PLUS) 8.6-50 mgIndications:Con stipation Take 1 tab by mouth at end of day 3 of no BM. Call MD by day 4 of no BM 10 tablet 5 025 Active Ca carb-Ca gluc-Mg ox-Mg gluco 500 mg calcium -250 mg Tab Take by mouth 3 (three) times a day. 2024 Discontinued(R eorder) magnesium hydroxide 400 mg/5 mL SuspIndications:C onstipation TAKE 2 TABLESPOONS(30 ML) BY MOUTH EVERY OTHER DAY PATIENT REQUESTS FOR CONSTIPATION 30 ML=2,400MG/SEE BOWEL PROTOCOL 450 mL 11 024 2024 Discontinued(R eorder) STIMULANT LAXATIVE PLUS 8.6-50 mgIndications:Con stipation TAKE 1 TABLET BY MOUTH AT END OF DAY 3 W/NO BM/ CALL MD DAY 4 OF NO BM IC: SENNALAX-S / SENNA PLUS 10 tablet 5 024 2024 Discontinued(R eorder) cetirizine (ZYRTEC) 10 MG tabletIndications :Allergic rhinitis TAKE 1 TABLET BY MOUTH DAILY IN THE AM FOR ALLERGIES 30 tablet 11 024 2024 Discontinued cholestyramine (QUESTRAN) 4 gram packetIndications :Mixed hyperlipidemia MIX ONE PACKET WITH APPLESAUCE EVERY EVENING FOR LOOSE STOOL PREVENTION / BRUSH TEETH AFTER Strength: 4 gram 60 packet 2 2024 Discontinued(N o longer taking) atorvastatin (LIPITOR) 10 MG tabletIndications :Mixed hyperlipidemia Take 1 tablet (10 mg total) by mouth daily. 90 tablet 1 025 2024 Discontinued(N o longer taking) calcium carb,gluc-mag gluc,ox 500 mg calcium- 250 mg TabIndications:We akness of both lower extremities Take 1 tablet by mouth 3 (three) times a day. 90 tablet 11 025 2024 Discontinued(N o longer taking) calcium carbonate-vitamin D3 500 mg-200 units per tabletIndications :Weakness of both lower extremities Take 1 tablet by mouth 3 (three) times a day with meals. 270 tablet 3 025 2024 Discontinued(R eorder) magnesium hydroxide 400 mg/5 mL SuspIndications:C onstipation TAKE 2 TABLESPOONS(30 ML) BY MOUTH EVERY OTHER DAY PATIENT REQUESTS FOR CONSTIPATION 30 ML=2,400MG/SEE BOWEL PROTOCOL 450 mL 11 025 2024 Discontinued(R eorder) calcium carbonate-vitamin D3 500 mg-200 units per tabletIndications :Weakness of both lower extremities Take 1 tablet by mouth 3 (three) times a day with meals. 270 tablet 3 025 2024 Discontinued(N o longer taking) Active Problems Patient Care Coordination No te Formatting of this note migh t be different from the original. Height Problem Noted Date Diagnosed Date Loose stools 11/10/2024 Assessment & Plan (11/10/2024 10:31 AM EDT): Herbert presents for more recent loose stools and [...] Assessment & Plan (04/20/2024 11:32 AM EST): Herbert presents with his caretakers for decreased strength of the upper extremities bilaterally. Status post neck surgery for stenosis years ago. I ordered an x-ray to further investigate. I gave him exercises the front loader residential driver to start on. I informed him to call if there are any other issues or concerns or if this gets worse. Follow- up in 6 weeks. He understands and agrees Right leg pain 04/20/2024 Assessment & Plan (04/20/2024 11:31 AM EST): Herbert presents for ongoing right leg pain. He [...] Assessment & Plan (03/19/2024 2:33 PM EST): Lakisha presents for right knee pain-please see plan leg weakness for further detail-I will see him back in a month. He and his caretakers understand and agree to this plan of action. Weakness of both lower extremities 03/19/2024 Assessment & Plan (11/10/2024 10:30 AM EDT): Herbert has weakness of the lower legs bilaterally-he is currently in his wheelchair. Well cared for at his skilled nursing. Assessment & Plan (03/19/2024 2:33 PM EST): Herbert has weakness of both legs-right leg worse than left and this is likely secondary to his right knee pain which I suspect is arthritis. I ordered a repeat x-ray-last was done last year and I will update him with the results. I gave him exercises the front loader residential driver to start on and I wrote for physical therapy. I also put a referral into Ortho for consult. I informed him and his caretakers to call if there are any other issues or concerns. Follow-up in a month. They understand and agree. Right foot pain 08/26/2023 Assessment & Plan (08/26/2023 10:59 AM EDT): Herbert presents for right ankle redness and pain-going on for the past week or so. There looks like to be the beginnings of a pressure sore. I advised that he follow-up with his dye automation operator but in the meantime this was bandaged [...] Assessment & Plan (01/02/2023 11:17 AM EST): Herbert presents for a fall with his specialty foods cook. He had a fall on 12/31/2022. He [...] Plan (01/02/2023 11:18 AM EST): I refilled Herbert's Tylenol today-to be taken as directed. Rash and other nonspecific skin eruption 023 Assessment & Plan (11/13/2022 5:06 PM EDT): Virtual Visit Attestation Modality: interactive audio (phone only) Provider Location, state disclosed to patient: practice location Patient Location: home Patient State: [place] E&M Billing based on time ([id number]): Yes Total time spent on date of service (min): 4 Time spent with patient during visit (min): 6 I personally spent the total time as documented on care for this patient on the date of the encounter, of which the time spent with the patient during the encounter has been separately documented. I spoke to Jack-material handler 2nd shift for Herbert today. I left a voicemail for Elle-the [...] Assessment & Plan (02/27/2022 11:35 AM EST): Herbert has a right-sided foot drop. He needs a new AFO. He also needs new shoes as well as low-profile inserts. My nurses will be queueing up a prescription from this time. Follow-up in 6 months for his annual physical. He understands and agrees. Screening for prostate cancer 11/08/2021 Assessment & Plan (11/08/2021 11:04 AM EDT): Herbert is due for PSA-he will get this done and I will update him with results. He understands and agrees. Encounter for PPD skin test reading 11/08/2021 Assessment & Plan (11/08/2021 11:04 AM EDT): Herbert is due for PPD plan-this was done today and his nurse will read this in 48 hours. Need for prophylactic vaccin ation and inoculation against influenza 11/08/2021 Assessment & Plan (11/10/2024 10:31 AM EDT): Herbert is due for a flu vaccine-he was in agreement with getting this done along with his staff members. This was given today in the office. No complications. They were appreciative. Assessment & Plan (11/08/2021 11:05 AM EDT): Herbert is due for a flu shot today-he was in agreement with this. This is given today in the office without complications. He was appreciative. Allergic rhinitis 07/13/2021 Assessment & Plan (07/13/2021 10:27 AM EDT): I changed Herbert's allergy medications around-i stopped the loratadine and started Zyrtec. I also increase the Flonase. Follow-up as needed. He will call if there are any other issues or concerns. Cough 12/12/2020 Assessment & Plan (07/13/2021 10:27 AM EDT): Herbert presents for cough with his specialty foods cook. I had him go for a COVID [...] in visit from home. I spoke to specialty foods cook today. He has had a wet cough [...] Assessment & Plan (06/01/2024 1:49 PM EDT): Herbert is due for a repeat colonoscopy next [...] Assessment & Plan (07/24/2018 12:11 PM EDT): Herbert has been having more urinary incontinence and he has an appt with urology next month. 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 Since is he has no symptoms, he is asymptomatic at present. His skilled nursing will call if there is any other issues. He and his staff understands and agrees. Grade I hemorrhoids 06/10/2018 Assessment & Plan (06/10/2018 10:17 AM EDT): 1st degree hemorrhoid noted-started on the suppository as directed. Working on diet at the skilled nursing and a constipation regimen. Weakness of both legs 12/18/2017 Assessment & Plan (02/27/2022 11:35 AM EST): Herbert has weakness of the lower extremities bilaterally. He is in his wheelchair today. He needs new AFO, shoes and inserts. My nurses will be giving him a prescription for this. Assessment & Plan (12/18/2017 4:52 PM EDT): Lakisha presents with his care takers for a [...] Assessment & Plan (07/23/2017 11:30 AM EDT): Lakisha has been having issues with choking while eating and I will send him for a modified barium swallow and a speech evaluation. His skilled nursing will call if there is any other issues. Medicare annual wellness visit, subsequent 07/23 Assessment & Plan (12/10/2023 9:33 AM EDT): Lakisha Mccarty is a 68 y.o. year old male [...] Assessment & Plan (11/28/2022 9:30 AM EDT): Lakisha Mccarty is a 67 y.o. year old male [...] Assessment & Plan (11/08/2021 11:04 AM EDT): Lakisha Mccarty is a 65 y.o. year old male [...] Assessment & Plan (11/04/2020 12:10 PM EDT): Lakisha Mccarty is a 64 y.o. year old male presenting with his specialty foods cook and nurse for his annual medicare wellness [...] Assessment & Plan (07/24/2018 11:53 AM EDT): Lakisha Mccarty is a 62 y.o. year old male [...] Assessment & Plan (07/23/2017 11:31 AM EDT): Lakisha Mccarty is a 61 y.o. year old male [...] Assessment & Plan (06/10/2018 10:11 AM EDT): Herbert has anemia and I reviewed his last CBC in the hospital. I will repeat this lab work today. Assessment & Plan (07/23/2017 11:29 AM EDT): Lakisha has anemia and he is taking his PO supplement as directed. Assessment & Plan (06/04/2017 11:36 AM EDT): Herbert has anemia and I reviewed his last lab work from 03/2017. His care team was advised to call Dr. Moreland and to get directive from her in regards to staying the course or trying IV supplementation. I signed the skilled nursing paperwork today. Constipation 03/26/2017 Assessment & Plan (11/10/2024 10:30 AM EDT): No current issues-Herbert is having more loose stool-please see plan loose stools for further detail. Assessment & Plan (06/10/2018 10:11 AM EDT): He has constipation at times and he is getting his at home dosage of medication as needed. Assessment & Plan (06/04/2017 11:37 AM EDT): Herbert is not currently having issues with constipation. Depression 03/26/2017 GERD (gastroesophageal reflux disease) 8 Assessment & Plan (07/24/2018 11:54 AM EDT): Herbert is taking his medication as directed. Hearing loss 03/26/2017 History of colon cancer 03/26/2017 Hydrocele in adult 03/26/2017 Intermittent explosive disorder 03/26/2017 Iron deficiency 03/26/2017 Assessment & Plan (06/04/2017 11:39 AM EDT): Herbert has iron deficiency and he is taking his supplement as directed. Macrocytic anemia 03/26/2017 Intellectual disability 03/26/2017 Overview (04/16/2018): [id number] IMO Load Assessment & Plan (11/10/2024 10:12 AM EDT): Herbert is well cared for at his skilled nursing. Assessment & Plan (07/24/2018 11:53 AM EDT): Herbert is well cared for at his skilled nursing. Mixed hyperlipidemia 03/26/2017 Assessment & Plan (11/10/2024 10:29 AM EDT): Overall stable. Assessment & Plan (07/24/2018 11:55 AM EDT): Lakisha Mensahmannamena has hypercholesterolemia and he is taking the above medication as directed without any side effects. his most recent cholesterol labs were reviewed. he will follow up as directed. Assessment & Plan (07/23/2017 11:28 AM EDT): Lakisha Mccarty has hypercholesterolemia and he is taking the above medication as directed without any side effects. He will go for the above lab work and I will update him with the skilled nursing. he will follow up as directed. Monoallelic [...] Assessment & Plan (02/27/2022 11:34 AM EST): Herbert is taking his medication as directed. No recent seizure. Assessment & Plan (07/13/2021 10:27 AM EDT): Stable-he is taking his medication as directed. No issues. Assessment & Plan (11/04/2020 12:09 PM EDT): Herbert has a seizure disorder and he is taking his medication as directed. He is well cared for at his skilled nursing. Assessment & Plan (07/24/2018 11:54 AM EDT): Herbert has a seizure disorder and he is taking his medication as directed. Assessment & Plan (05/28/2018 1:05 PM EDT): According to the patient's sister the patient has not had a seizure since puberty. -No seizure meds. Stenosis of cervical spine with myelopathy 03/26 Fall at home 03/05/2017 Assessment & Plan (03/05/2017 12:26 PM EST): Herbert had a fall at home on 02/18/17 and he went to the ED for this. I reviewed the CT scan of his head and neck, this showed severe arthritis of his neck but the CT scan of his head showed no issues noted. I reviewed his ED notes as well. I filled out the paperwork from his skilled nursing today. He will call if there is any other concerns today. Arthritis 03/05/2017 Assessment & Plan (06/01/2024 1:49 PM EDT): Herbert has arthritis-he is currently getting physical therapy for his right knee- his right knee pains have improved. I reviewed his x-ray that was done recently showing arthritis. He will follow-up with Ortho-appointment later this month. I informed him and his caretakers to call if there are any other issues or concerns. They understand and agree. 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 Doing well. Stable. Assessment & Plan (06/01/2024 1:48 PM EDT): Stable on his Gleevec. Assessment & Plan (12/10/2023 9:32 AM EDT): Herbert is taking his med as directed. I [...] Assessment & Plan (07/24/2018 11:55 AM EDT): Herbert has CML and he is taking his gleevec as directed. Assessment & Plan (05/28/2018 1:03 PM EDT): Continue Gleevec daily as prescribed Assessment & Plan (07/23/2017 11:29 AM EDT): Lakisha has CML and he is taking his above medication as directed. Assessment & Plan (06/04/2017 11:39 AM EDT): Herbert has CML and he is taking the [...] tachycardic. Since it is unlikely that the skilled nursing is prepared to take him home on Saturday afternoon, I think it is reasonable to observe overnight as long as there is no fever or worsening leukocytosis he will be discharged to skilled nursing tomorrow. Resolved Problems Problem Noted Date Diagnosed Date Resolved Date Frequent UTI 07/24/2018 06/01/2024 Assessment & Plan (07/24/2018 12:11 PM EDT): Hebrert has been having frequent UTI's and he was given a referral to ID today. Acute cystitis without hematuria 07/04/2018 07/24/2018 Assessment & Plan (07/04/2018 3:36 PM EDT): Herbert was diagnosed with a UTI based on [...] postvoid residual requested Changed to Augmentin today Encounters Date Type Department Care Team Description 11/26/[address] [address] William Perez, DO Medication Refill 11/25/2024 1:30 PM EDT Office Visit [address] [address] Mamadou Calvillo, DO Mixed hyperlipidemia (Primary Dx); Peripheral polyneuropathy 11/19/[address] [address] William Perez, DO Follow Up Visit (ED FUV + 11/18 + fall + unable to schedule) 11/19/[address] [address] William Perez, DO Medication Refill 2024 6:17 PM EDT - 2024 9:29 PM EDT Emergency [facility] [address] [place] [id number] Discharge Disposition: Home or Self Care [address] [address] [address] [address] 11/16/[address] [address] William Perez, DO Medication Refill (calcium carbonate-vitamin D3 500 mg-200 units per tablet and // /magnesium hydroxide 400 mg/5 mL) 11/10/2024 10:00 AM EDT Office Visit [address] [address] William Perez, DO Loose stools (Primary Dx); CML (chronic myelocytic leukemia); Intellectual disability; Mixed hyperlipidemia; Constipation; Weakness of both lower extremities; Need for prophylactic vaccination and inoculation against influenza 11/10/2024 Refill [facility] [address] [place] [address] William Perez, DO Med Change Request 11/04/[address] [address] Jordon LeisaABIMBOLA 11/03/2024 1:30 AM EDT - 11/03/2024 2:40 AM EDT Emergency [facility] [address] [place] [address] Discharge Disposition: Home or Self Care 10/27/[address] [address] William Perez, DO Weight Loss 10/27/2024 Orders Only [address] [address] ProviderCheryl MD 10/27/[address] [address] William Perez, DO Medication Refill 10/23/2024 1:31 PM EDT - 10/23/2024 11:59 PM EDT Hospital Encounter [facility] [address] [place] [address] Alex Manzano MD Discharge Disposition: Home or Self Care 10/19/2024 12:30 PM EDT Home Care Visit [facility] [address] [place] [address] Rowan Saravia, PT NON ADMIT HOME HEALTH VISIT 10/19/2024 Orders Only [address] [address] Rosalie Segovia MD Cervicalgia (Primary Dx) 10/19/2024 [facility] [address] [place] [phone] Saira Mayorga, PT CASE COMMUNICATION 10/12/2024 Refill [facility] [address] [place] [address] Jannet Preston, SCARLETT Medication Refill 10/09/2024 10:21 AM EDT - 10/09/2024 11:59 PM EDT Hospital Encounter [address] [address] Richard Canas MD Discharge Disposition: Home or Self Care 10/09/2024 10:20 AM EDT Hospital Encounter [address] [address] Richard Canas MD Discharge Disposition: Home or Self Care 10/06/2024 8:00 AM EDT Telemedicine - audio only [facility] at [address] [address] Garret Colon MD CML (chronic myelocytic leukemia) (Primary Dx); Malignant neoplasm of descending colon; 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 shoulder 10/06/2024 Telephone [facility] at [address] [address] Liana Garza RN Forms & Paperwork 10/05/2024 2:29 PM EDT - 10/05/2024 11:59 PM EDT Hospital Encounter [facility], X-Ray - [address] [place] [address] Rosalie Segovia MD Discharge Disposition: Home or Self Care 10/05/2024 11:00 AM EDT Office Visit [facility] [address] [address] Rosalie Segovia MD Cervicalgia (Primary Dx); Seizure disorder 10/05/2024 Orders Only [facility] [address] [place], [place] [phone] Homehealth, Yara Go MD 09/29/2024 2:29 PM EDT - 09/29/2024 11:59 PM EDT Hospital Encounter [address] [place] [address] Garret Colon MD Discharge Disposition: Home or Self Care 09/29/2024 Telephone [facility] [address] [place] [address] William Perez, DO Triage ([place]+neck pain) 09/29/2024 Orders Only [facility] at [address] [address] Richa Hagen CMA CML (chronic myelocytic leukemia) (Primary Dx) 09/25/[address] [address] Gretchen Agarwal Forms & Paperwork 09/15/2024 Refill [facility] at [address] [address] Joyce Florentino CNP Medication Refill 09/10/2024 Procedure Pass [address] [address] 09/10/2024 Procedure Pass [address] [address] 09/10/2024 Transcribe Orders Virtual Department [address] [place] [id number] Richard Canas MD Ataxic gait (Primary Dx) 09/09/[address] [address] Gretchen Agarwal Forms & Paperwork 09/04/[address] [address] William Perez, DO Triage (Red call - pt fell this morning while being transferred from bed to chair - scratch on his back) 09/03/[address] [id number] William Perez, DO Medication Refill from Last 3 Months Immunizations Immunization Administration Dates Next Due COVID-19 (Pre-12/17) Pfizer Vaccine, mRNA, PF 04/20/2020,03/30/2020 COVID-19 Moderna Spikevax Vaccine 12+ 02/23/2023 [id number] FORMULATION 03/14/2009 Hepatitis B, unspecified formulation 03/08/2006, 10/05/2005,09/04/2005 INFLUENZA, SPLIT VIRUS, TRIV ALENT W/ PRESERVATIVE IM 11/28/2010 Influenza High-Dose Trivalen t Preservative Free IM 11/10/2024,12/23/2023,11/26/2022 Influenza Quadrivalent Prese rvative Free IM 11/08/2021,11/22/2020,12/30/2017,11/15 Influenza Quadrivalent w/ Pr eservative IM 12/31/2014 Influenza trivalent preserva tive free intradermal 12/29/2013,11/19/2012 Influenza, Unspecified Formulation 11/22/2020,,12/17/2009 Influenza, whole 02/11/2007,12/07/2005 PPD Test 11/08/2021, 8,07/19/2015,05/29,04/20/2011 Pneumococcal conjugate PCV13 07/24/2018,05/01/19 09 Pneumococcal polysaccharide PPSV23 01/29/2019 Td (adult),2 Lf Tetanus Toxo id, PF, Adsorbed 12/23/2023 Tdap 05/27/2012 Tetanus toxoid, unspecified formulation 05/27/2012 Family History Medical History Relation Comments Cancer Maternal Grandmother Cancer Mother Relation Status Comments Maternal Grandmother Mother Social History Tobacco Use Types Packs/Day Years Used Date Smoking Tobacco: Never Smokeless Tobacco: Never Tobacco Cessation:Counseling Given: Not Answered Alcohol Use Standard Drinks/Week Comments Yes 0 [...] not to disclose 2017 9:35 AM EST Last Filed Vital Signs Vital Sign Reading Time Taken Comments Blood Pressure 110/62 11/25/2024 1:35 PM EDT Pulse 87 11/25/2024 1:35 PM EDT Temperature 36.2 C (97.2 F) 11/25/2024 1:35 PM EDT Respiratory Rate 16 2024 6:25 PM EDT Oxygen Saturation 100% 11/25/2024 1:35 PM EDT Inhaled Oxygen Concentration - - Weight 64.9 kg (143 lb) 11/02/2024 9:30 PM EDT Height 167.6 cm (5' 5.98 ) 11/25/2024 1:35 PM ED T Body Mass Index 23.08 11/02/2024 9:30 PM EDT Plan of Treatment Upcoming Encounters Date Type Department Care Team (Yazmin st Contact Info) Description 12/11/2024 10:00 AM EDT [facility] [address] [place] [address] William Perez DO [address] [facility], [address] [place] [address] [email or web address] Health Maintenance Due Date Last Done Comments HEPATITIS A VACCINES (1 of 2 - Risk 2-dose series) 1976 ZOSTER VACCINES (1 of 2) 1976 COLOGUARD 2002 FOBT 2002 SIGMOIDOSCOPY 2002 VIRTUAL COLONOSCOPY 2002 RSV VACCINE (1 - Risk 60-74 years 1-dose series) 2017 FIT TEST 04/19/2023 04/19/2022 PNEUMOCOCCAL VACCINES (50+ years) (3 of 3 - PPSV23, PCV20 or PCV21) 01/30/2024 01/29/2019, 07/24/2018, 04/30/2008 COVID-19 VACCINE ( season) 2024 01/07/2024, 02/23/2023, 02/28/2022, Additional history exists DEPRESSION SCREENING 12/09/2024 12/10/2023 LIPID PANEL 12/22/2024 12/23/2023, 110 03/2021, 12/27/2021, Additional history exists TSH LEVEL 12/22/2024 12/23/2023, 110 03/2021, 01/05/2020, Additional history exists CREATININE LEVEL 04/01/2025 09/29/2024, , 02/06/2024, Additional history exists POTASSIUM LEVEL 04/01/2025 09/29/2024, 02/26, 02/06/2024, Additional history exists COLONOSCOPY 10/27/2026 10/27/2024, 05/0 04/2022, 01/29/2022, Additional history exists COLORECTAL CANCER SCREENING 10/27/2026 Adult Td,Tdap Booster 12/22/2033 12/23/2023, 013 HEPATITIS C SCREENING Completed 07/25/2018, 019 INFLUENZA VACCINE Completed 11/10/2024, , 11/26/2022, Additional history exists SMOKING STATUS SCREENING (Once After 26 Yrs) Completed 11/25/2024 HIB VACCINES Aged Out No longer eligi ble based on patient's age to complete this topic MENINGOCOCCAL VACCINES (ACWY) Aged Out No longer eligible based on patient's age to complete this topic MENINGOCOCCAL VACCINES (B) Aged Out N o longer eligible based on patient's age to complete this topic Medical Devices Not on file Procedures Procedure Name Priority Date/Time Associated Diagnosis Comments CT CERVICAL SPINE WITHOUT CONTRAST Routine 2024 6:[address] HEAD WITHOUT CONTRAST Routine 2024 6:25 PM EDT XR KNEE 4 OR MORE VIEWS (RIGHT) Routine 11/02/2024 9:48 PM EDT HM COLONOSCOPY FOR RESULT ENTRY ONLY Routine 10/27/2024 10:10 AM EDT ANATOMIC PATHOLOGY Routine 10/23/2024 12 :00 AM EDT MRI LUMBAR SPINE (NEURO) WITHOUT CONTRAST Routine 10/09/2024 11:50 AM EDT Ataxic gait MRI THORACIC SPINE (NEURO) WITHOUT CONTRAST Routine 10/09/2024 11:50 AM EDT Ataxic gait XR CERVICAL SPINE 2-3 VIEWS Routine 10/05/2024 3:10 PM EDT Cervicalgia COMPREHENSIVE METABOLIC PANEL Routine 09/29/2024 2:32 PM EDT CML (chronic myelocytic leukemia) CBC AND DIFFERENTIAL Routine 09/29/2024 2:32 PM EDT CML (chronic myelocytic leukemia) BCR/ABL1, P210 MRNA DETECTION GENE REARRANGEMENT RT-PCR Routine 09/29/2024 2:32 PM EDT CML (chronic myelocytic leukemia) LIPID PANEL Routine 12/23/2023 11:44 AM EDT Medicare annual wellness visit, subsequent TSH WITH REFLEX Routine 12/23/2023 11:44 AM EDT Medicare annual wellness visit, subsequent HC BLOOD OCCULT FECAL HGB DETER IA QUAL FECES 1-3 Routine 04/19/2022 1:00 PM EST Personal history of colon cancer Personal history of colonic polyps HEPATITIS C ANTIBODY, QUALITATIVE Routine 07/25/2018 7:56 AM EDT Screening for condition from Last 3 Months or Most Recently Relevant to Health Maintenance Results * CT CERVICAL SPINE WITHOUT CONTRAST (2024 6:25 PM EDT) Anatomical Region Laterality Modality C-spine Computed Tomogra phy 2024 8:09 PM EDT Impressions 2024 8:39 PM EDT 1. No acute intracranial findings. 2. No acute fracture or traumatic malalignment of the cervical spine. ATTESTATION: I, Angeles Rajan as teaching physician, have reviewed the images for this case and if necessary edited the report originally created by Agustin Bah. Narrative 2024 8:[address] HEAD WITHOUT CONTRAST, CT CERVICAL SPINE WITHOUT CONTRAST Referring clinician's provided indication for this examination in Epic: * Head trauma, minor (Age >= 65y) Review of the Electronic Medical Record reveals an additional history of: fall hitting his head; he has small laceration to the bridge of his nose from the glasses. TECHNIQUE: CTs of the head and cervical spine were performed without intravenous contrast using tailored dose modulation techniques. Images were reconstructed in the axial, coronal, and sagittal planes. COMPARISON: CT HEAD WITHOUT CONTRAST FINDINGS: HEAD: Brain Parenchyma: No midline shift, mass effect, parenchymal hemorrhage, or evidence of acute territorial infarct. Hypodensities in the periventricular white matter, likely a manifestation of chronic small vessel disease. Ventricular System and Extra-Axial Spaces: Prominence of the sulci and ventricles. 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 No extra-axial fluid collections. Basal cisterns are patent. No hydrocephalus. Osseous and Extracranial Structures: No calvarial fracture. Small amount of fat stranding in the anterior frontal scalp likely contusion. Right maxillary mucus retention cyst. Mild mucosal thickening of the left maxillary sinus. Similar under pneumatization of the mastoid air cells. No orbital abnormality. CERVICAL SPINE: Alignment and Vertebrae: Unchanged exaggerated cervical lordosis. Vertebral bodies and posterior elements are intact. Postsurgical changes from left C3, C4 and C5 laminectomies. Surgical anchors in the right C3, C4 and C5 pars interarticularis. Similar partial fusion of the right C3 and C4 laminae and spinous processes. Discs and Endplates: Multilevel degenerative changes. Other Findings: Similar prominent substernal bilateral cervical and supraclavicular lymph nodes. Unchanged prominent bilateral palatine tonsils. Patulous esophagus. Mild biapical pleuroparenchymal scarring. Procedure Note Angeles Rajan MBBS - 2024 CT HEAD WITHOUT CONTRAST, CT CERVICAL SPINE WITHOUT CONTRAST Referring clinician's provided indication for this examination in [facility]: *Head trauma, minor (Age >= 65y) Review of the Electronic Medical Record reveals an additional history of:fall hitting his head; he has small laceration to the bridge of his nosefrom the glasses. TECHNIQUE: CTs of the head and cervical spine were performed withoutintravenous contrast using tailored dose modulation techniques. Imageswere reconstructed in the axial, coronal, and sagittal planes. COMPARISON: CT HEAD WITHOUT CONTRAST FINDINGS: HEAD: Brain Parenchyma: No midline shift, mass effect, parenchymal hemorrhage,or evidence of acute territorial infarct. Hypodensities in theperiventricular white matter, likely a manifestation of chronic smallvessel disease. Ventricular System and Extra-Axial Spaces: Prominence of the sulci andventricles. Unchanged features of Dandy-Walker variant in the posteriorfossa and ventriculomegaly. No extra-axial fluid collections. Basalcisterns are patent. No hydrocephalus. Osseous and Extracranial Structures: No calvarial fracture. Small amountof fat stranding in the anterior frontal scalp likely contusion. Rightmaxillary mucus retention cyst. Mild mucosal thickening of the leftmaxillary sinus. Similar under pneumatization of the mastoid air cells. Noorbital abnormality. CERVICAL SPINE: Alignment and Vertebrae: Unchanged exaggerated cervical lordosis.Vertebral bodies and posterior elements are intact. Postsurgical changesfrom left C3, C4 and C5 laminectomies. Surgical anchors in the right C3,C4 and C5 pars interarticularis. Similar partial fusion of the right C3and C4 laminae and spinous processes. Discs and Endplates: Multilevel degenerative changes. Other Findings: Similar prominent substernal bilateral cervical andsupraclavicular lymph nodes. Unchanged prominent bilateral palatinetonsils. Patulous esophagus. Mild biapical pleuroparenchymal scarring. IMPRESSION: 1. No acute intracranial findings. 2. No acute fracture or traumatic malalignment of the cervical spine. ATTESTATION: Angeles Valadez as teaching physician, have reviewedthe images for this case and if necessary edited the report originallycreated by Agustin Bah. Marlee Anne PA-C IMFeliz CT XSPECIALTY ORDERABLE S Final Result * CT HEAD WITHOUT CONTRAST (2024 6:25 PM EDT) Anatomical Region Laterality Modality Head Computed Tomogra phy 2024 8:09 PM EDT Impressions 2024 8:39 PM EDT 1. No acute intracranial findings. 2. No acute fracture or traumatic malalignment of the cervical spine. ATTESTATION: Angeles Valadez as teaching physician, have reviewed the images for this case and if necessary edited the report originally created by Agustin Bah. Narrative 2024 8:[address] HEAD WITHOUT CONTRAST, CT CERVICAL SPINE WITHOUT CONTRAST Referring clinician's provided indication for this examination in [facility]: * Head trauma, minor (Age >= 65y) Review of the Electronic Medical Record reveals an additional history of: fall hitting his head; he has small laceration to the bridge of his nose from the glasses. TECHNIQUE: CTs of the head and cervical spine were performed without intravenous contrast using tailored dose modulation techniques. Images were reconstructed in the axial, coronal, and sagittal planes. COMPARISON: CT HEAD WITHOUT CONTRAST FINDINGS: HEAD: Brain Parenchyma: No midline shift, mass effect, parenchymal hemorrhage, or evidence of acute territorial infarct. Hypodensities in the periventricular white matter, likely a manifestation of chronic small vessel disease. Ventricular System and Extra-Axial Spaces: Prominence of the sulci and ventricles. 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 No extra-axial fluid collections. Basal cisterns are patent. No hydrocephalus. Osseous and Extracranial Structures: No calvarial fracture. Small amount of fat stranding in the anterior frontal scalp likely contusion. Right maxillary mucus retention cyst. Mild mucosal thickening of the left maxillary sinus. Similar under pneumatization of the mastoid air cells. No orbital abnormality. CERVICAL SPINE: Alignment and Vertebrae: Unchanged exaggerated cervical lordosis. Vertebral bodies and posterior elements are intact. Postsurgical changes from left C3, C4 and C5 laminectomies. Surgical anchors in the right C3, C4 and C5 pars interarticularis. Similar partial fusion of the right C3 and C4 laminae and spinous processes. Discs and Endplates: Multilevel degenerative changes. Other Findings: Similar prominent substernal bilateral cervical and supraclavicular lymph nodes. Unchanged prominent bilateral palatine tonsils. Patulous esophagus. Mild biapical pleuroparenchymal scarring. Procedure Note Angeles Rajan MBBS - 2024 CT HEAD WITHOUT CONTRAST, CT CERVICAL SPINE WITHOUT CONTRAST Referring clinician's provided indication for this examination in [facility]: *Head trauma, minor (Age >= 65y) Review of the Electronic Medical Record reveals an additional history of:fall hitting his head; he has small laceration to the bridge of his nosefrom the glasses. TECHNIQUE: CTs of the head and cervical spine were performed withoutintravenous contrast using tailored dose modulation techniques. Imageswere reconstructed in the axial, coronal, and sagittal planes. COMPARISON: CT HEAD WITHOUT CONTRAST FINDINGS: HEAD: Brain Parenchyma: No midline shift, mass effect, parenchymal hemorrhage,or evidence of acute territorial infarct. Hypodensities in theperiventricular white matter, likely a manifestation of chronic smallvessel disease. Ventricular System and Extra-Axial Spaces: Prominence of the sulci andventricles. Unchanged features of Dandy-Walker variant in the posteriorfossa and ventriculomegaly. No extra-axial fluid collections. Basalcisterns are patent. No hydrocephalus. Osseous and Extracranial Structures: No calvarial fracture. Small amountof fat stranding in the anterior frontal scalp likely contusion. Rightmaxillary mucus retention cyst. Mild mucosal thickening of the leftmaxillary sinus. Similar under pneumatization of the mastoid air cells. Noorbital abnormality. CERVICAL SPINE: Alignment and Vertebrae: Unchanged exaggerated cervical lordosis.Vertebral bodies and posterior elements are intact. Postsurgical changesfrom left C3, C4 and C5 laminectomies. Surgical anchors in the right C3,C4 and C5 pars interarticularis. Similar partial fusion of the right C3and C4 laminae and spinous processes. Discs and Endplates: Multilevel degenerative changes. Other Findings: Similar prominent substernal bilateral cervical andsupraclavicular lymph nodes. Unchanged prominent bilateral palatinetonsils. Patulous esophagus. Mild biapical pleuroparenchymal scarring. IMPRESSION: 1. No acute intracranial findings. 2. No acute fracture or traumatic malalignment of the cervical spine. ATTESTATION: I, Angeles Rajan as teaching physician, have reviewedthe images for this case and if necessary edited the report originallycreated by Agustin Bah. us Marlee Anne PA-C IMG CT HEAD/NECK Final Resu lt * XR KNEE 4 OR MORE VIEWS (RIGHT) (11/02/2024 9:48 PM EDT) Anatomical Region Laterality Modality Knee Right Computed Radiogr aphy 11/02/2024 11:0 8 PM EDT Impressions 11/02/2024 11:23 PM EDT 1. No fracture or dislocation. 2. Small suprapatellar joint effusion. ATTESTATION: Viral Valadez as teaching physician, have reviewed the images for this case and if necessary edited the report originally created by [employer]. Narrative 11/02/2024 11:23 PM EDT XR KNEE 4 OR MORE VIEWS (RIGHT) Referring clinician's provided indication for this examination in Epic: Pain; S/P Fall COMPARISON: XR KNEE 4 OR MORE VIEWS (RIGHT) FINDINGS: Right Knee: No fracture. Extensive tricompartmental chondrocalcinosis with relatively mild joint space narrowing. Small suprapatellar joint effusion. Procedure Note Viral Kasper MD - 11/02/2024 XR KNEE 4 OR MORE VIEWS (RIGHT) Referring clinician's provided indication for this examination in Epic:Pain; S/P Fall COMPARISON: XR KNEE 4 OR MORE VIEWS (RIGHT) FINDINGS: Right Knee: No fracture. Extensive tricompartmental chondrocalcinosis withrelatively mild joint space narrowing. Small suprapatellar jointeffusion. IMPRESSION: 1. No fracture or dislocation. 2. Small suprapatellar joint effusion. ATTESTATION: Viral Valadez as teaching physician, have reviewed theimages for this case and if necessary edited the report originally createdby [employer]. Macrina Girard MD IMG XR LOWER EXTREMITY Fi nal Result * HM COLONOSCOPY FOR RESULT ENTRY ONLY (10/27/2024 10:10 AM EDT) us Historical Provider HEALTH MAINTENANCE Final Result * Anatomic Pathology (10/23/2024 12:00 AM EDT) 10/23/2024 10/23/2024 2:2 8 PM EDT Narrative SEE NARRATIVE - 10/27/2024 2:41 PM EDT [address] [address] Manager Pulmonary: Andrei Mitchell MD Surgical Pathology Report FINAL PATHOLOGIC DIAGNOSIS: DESCENDING COLON, POLYP: Focal hyperplastic change. Electronically Signed Out By Yeyn Ace MD By his/her signature above, the pathologist listed as making the Final Diagnosis certifies that he/she has personally reviewed this case and confirmed or corrected the diagnosis. CLINICAL HISTORY Preoperative diagnosis: Personal history of colorectal cancer, PALB2 mutation Postoperative diagnosis: Polyps SPECIMENS SUBMITTED: A: DESCENDING COLON, POLYP GROSS DESCRIPTION DESCENDING COLON, POLYP: Received in formalin are 2 irregular watkins-pink soft tissue fragments measuring on average 0.5 x 0.3 x 0.3 cm which are submitted in toto in a single cassette labeled A1. Grossed by: SHANI Sorto, SHAMA([facility]). [id number] 10/23/2024 Grossing Staff: [id number] Patient Name: LAKISHA MCCARTY : 1955 (Age: 68) Sex: M Institution: [facility] Location: [facility] Date of Operation: 10/23/2024 Date of Reported: 10/27/2024 14:41 Results To: Alex Manzano MD, BS William Perez M.D. [facility] Alex Manzano MD PATHOLOGY ORDERABLES Final R esult SEE NARRATIVE * MRI LUMBAR SPINE (NEURO) WITHOUT CONTRAST [...] COMPARISON: MRI CERVICAL/THORACIC/LUMBAR SPINE WITH AND WITHOUT [id number] FINDINGS: THORACIC SPINE: Alignment and Vertebrae: There [...] Canas MD IMG MR XSPECIALTY Final Result * MRI THORACIC [...] COMPARISON: MRI CERVICAL/THORACIC/LUMBAR SPINE WITH AND WITHOUT [id number] FINDINGS: THORACIC SPINE: Alignment and Vertebrae: There [...] to prior study. us Richard Canas MD IMG MR XSPECIALTY Final Result * XR CERVICAL SPINE 2-3 VIEWS (10/05/2024 3:10 PM EDT) Anatomical Region Laterality Modality C-spine Computed Radiogr aphy 10/06/2024 8:55 AM EDT Impressions 10/06/2024 9:01 AM EDT Alignment abnormalities and, advanced degenerative changes, and postoperative changes, similar to the prior study. Narrative 10/06/2024 9:01 AM EDT XR CERVICAL SPINE 2-3 VIEWS Referring clinician's provided indication for this examination in [facility]: Pain COMPARISON: XR CERVICAL SPINE 2-3 VIEWS FINDINGS: No prevertebral soft tissue swelling. Exaggeration of the normal cervical lordosis with mild retrolisthesis of C3 on C4. Levoconvex curvature. No displaced fracture. Multilevel degenerative disc disease which is most advanced at C3-C4. Multilevel degenerative facet arthritis. Suture anchors project over the right aspect of C3, C4, and C5. Procedure Note Redd Oliver MD - 10/06/2024 XR CERVICAL SPINE 2-3 VIEWS Referring clinician's provided indication for this examination in [facility]:Pain COMPARISON: XR CERVICAL SPINE 2-3 VIEWS FINDINGS: No prevertebral soft tissue swelling. Exaggeration of the normal cervicallordosis with mild retrolisthesis of C3 on C4. Levoconvex curvature. Nodisplaced fracture. Multilevel degenerative disc disease which is mostadvanced at C3-C4. Multilevel degenerative facet arthritis. Suture anchorsproject over the right aspect of C3, C4, and C5. IMPRESSION: Alignment abnormalities and, advanced degenerative changes, andpostoperative changes, similar to the prior study. Rosalie Segovia MD IM XR SPINE Final Resul t * BCR/ABL1, p210 quantitative gene rearrangement RT-PCR (09/29/2024 2:32 PM EDT) SPECIMEN TYPE Peripheral blood EDTA [facility] DPT OF LAB MED AND PAT+ FINAL DIAGNOSIS SEE NOTE MAY [facility] DPT OF LAB MED AND PAT+ Comment: (NOTE) Peripheral blood, BCR/ABL1 mRNA level analysis (p210 fusion form): Negative. No BCR/ABL1 p210 mRNA transcripts were detected (%BCR/ABL1(p210):ABL1=0). NOTE: Please correlate this result with the original (diagnostic) BCR-ABL1 mRNA transcript type identified in this patient to ensure that the ordered test is correct and appropriate for the clinical indication. This assay specifically detects the p210 (e13a2 or e14a2) BCR-ABL1 transcript isoform. It does not detect the BCR-ABL1 p190 (e1-a2) transcript (prevalent in B-lymphoblastic leukemia, but may also rarely occur in chronic myeloid leukemia) or other rare BCR-ABL1 transcript isoforms. Signing Pathologist: Carlos Enrique Zimmerman D.O. M.S. ADDITIONAL INFORMATION Method summary - BCR/ABL1, p210 fusion: The BCR/ABL1 transcript level was evaluated using a quantitative, reverse department specialist PCR. The analytical sensitivity of this assay has been determined at 0.003% (MR 4.5). This assay detects the major breakpoint region-associated common fusion mRNA forms in chronic myelogenous leukemia (e13/a2 and e14/a2), which code for a p210 protein. It is intended for monitoring patients with hematopoietic neoplasms known to carry the p210 fusion form. The assay does not detect other BCR/ABL1 mRNA types, including the e1/a2 transcript (p190 protein) that is commonly present in acute lymphoblastic leukemia. This assay is not intended for use in the diagnostic setting, as it does not detect all BCR/ABL1 mRNA fusion forms. If this has been performed in a diagnostic setting and the result is negative, test: BADX (BCR/ABL mRNA Detection, RT-PCR, Qualitative, Diagnostic) should be ordered to evaluate for all possible fusion forms. Please contact the [facility] at [phone] with questions or if additional testing is required. See the [facility] Interpretive Handbook for method details. The reproducibility of this assay is such that results within 0.5 log should be considered equivalent. Trends in the level of BCR/ABL1 mRNA should be followed carefully and clinically significant changes in BCR/ABL1 mRNA levels during tyrosine kinase inhibitor (TKI) therapy may indicate the presence of acquired BCR/ABL1 kinase domain mutations, which can be further evaluated using the BCR/ABL KDM assay (test: BAKDM). This test was developed and its performance characteristics determined by [facility] in a manner consistent with CLIA requirements. This test has not been cleared or approved by the U.S. Food and Drug Administration. BCR/ABL1, P210 Result see interpretation [facility] DPT OF LAB MED AND PAT+ Comment: (NOTE) PDF Report available at: [email or web address] 09/29/2024 2:32 PM EDT 09/29/2024 2:37 PM EDT us Garret Colon MD LAB BLOOD ORDERABLES Final Res ult [facility] DPT OF LAB MED AND PAT+ [address] [place] [address] * (ABNORMAL) Comprehensive metabolic panel (09/29/2024 2:32 PM EDT) SODIUM 140 133 - 146 mmol/L [facility] POTASSIUM 4.4 3.3 - 5.1 mmol/L [facility] CHLORIDE 104 96 - 108 mmol/L [facility] CO2 25 21 - 35 mmol/L [facility] BUN 13 6 - 19 mg/dL [facility] CREATININE 0.60 0.5 - 1.5 mg/dL [facility] GLUCOSE 127(H) 70 - 99 mg/dL [facility] ALBUMIN 3.7(L) 3.9 - 4.8 g/dL [facility] TOTAL PROTEIN 6.0(L) 6.5 - 8.0 g/dL [facility] CALCIUM 9.1 8.4 - 10.3 mg/dL [facility] ALKALINE PHOSPHATASE 98 39 - 117 U/L [facility] TOTAL BILIRUBIN <0.2 0.0 - 1.2 mg/dL [facility] AST 27 0 - 37 U/L [facility] ALT 15 0 - 40 U/L [facility] GLOBULIN 2.3 1 - 4.8 g/dL [facility] EGFR 106 >59 mL/min/1.7 3m2 [facility] Comment:Estimated glomerular filtration rate calculated using the CKD-EPI refit equation. ANION GAP 15 10 - 20 mmol/L [facility] Blood 09/29/2024 2:32 PM EDT 09/29/2024 2:37 PM EDT us Garret Colon MD LAB BLOOD ORDERABLES Final Res ult [facility] [address] [place] [address] * (ABNORMAL) CBC and differential (09/29/2024 2:32 PM EDT) WBC 9.86 4.00 - 11.00 K/uL [facility] RBC 3.59(L) 4.50 - 5.90 M/uL [facility] HGB 11.8(L) 13.5 - 17.5 g/dL [facility] HCT 35.8(L) 41.0 - 53.0 % [facility] PLT 239 150 - 450 K/uL [facility] MCV 99.7 80.0 - 100.0 fL [facility] MCH 32.9(H) 27.0 - 31.0 pg [facility] MCHC 33.0 32.0 - 36.0 g/dL [facility] RDW 13.3 11.5 - 14.5 % [facility] MPV 10.3 8.4 - 12.0 fL [facility] NRBC 0.00 0.00 /100 WBCs [facility] ABSOLUTE NRBC 0.00 0.00 K/uL [facility] DIFF METHOD Auto [facility] NEUTS 39.5(L) 48.0 - 76.0 % [facility] LYMPHS 49.8(H) 18.0 - 41.0 % [facility] MONOS 7.7 4.0 - 11.0 % [facility] EOS 2.2 0.0 - 5.0 % [facility] BASOS 0.6 0.0 - 1.5 % [facility] Granulocytes, immature (%) 0.2 0.0 - 0.9 % [facility] ABSOLUTE NEUTS 3.89 1.92 - 7.60 K/uL [facility] ABSOLUTE LYMPHS 4.91(H) 0.72 - 4.10 K/uL [facility] ABSOLUTE MONOS 0.76 0.16 - 1.10 K/uL [facility] ABSOLUTE EOS 0.22 0.00 - 0.50 K/uL [facility] ABSOLUTE BASOS 0.06 0.00 - 0.15 K/uL [facility] Granulocytes, immature 0.02 0.00 - 0.09 K/uL [facility] Blood 09/29/2024 2:32 PM EDT 09/29/2024 2:37 PM EDT us Garret Colon MD LAB BLOOD ORDERABLES Final Res ult Performing Organization Address City/[facility]/ZIP Co de Phone Number [address] [address] * TSH with reflex (12/23/2023 11:44 AM EDT) TSH 1.09 0.27 - 4.20 uIU/mL [facility] Blood 12/23/2023 11:4 4 AM EDT 12/23/2023 11:54 AM EDT us William Perez DO LAB BLOOD ORDERABLES Final Resul t Performing Organization Address [facility]/ZIP Co de Phone Number [address] [address] * Lipid panel (12/23/2023 11:44 AM EDT) HDL 47 mg/dL [facility] Comment: Interpretation <40 mg/dL: Low HDL cholesterol (major risk factor for CHD) Greater than or equal to 60 mg/dL: High HDL cholesterol ( negative risk factor for CHD) HDL - cholesterol is affected by a number of factors, e.g. smoking, excerise, hormones, sex and age. CHOLESTEROL 168 0 - 240 mg/dL [facility] TRIGLYCERIDES 132 30 - 160 mg/dL [facility] LDL 95 50 - 129 mg/dL [facility] Comment: LDL levels in terms of risk for coronary heart disease: <100 mg/dL: Optimal 100-129 mg/dL: Near or above optimal 130-159 mg/dL: Borderline high 160-189 mg/dL: High >190 mg/dL: Very High CARDIAC RISK RATIO 3.6 3.4 - 5.0 [facility] Blood 12/23/2023 11:4 4 AM EDT 12/23/2023 11:54 AM EDT William Perez DO LAB BLOOD ORDERABLES Final Resul t Performing Organization Address [facility] de Phone Number [address] [address] * Fecal immunochemical test x1 (FIT) (04/19/2022 1:00 PM EST) Immuno Fecal Occult Negative Negative [facility] Stool (Stool) 04/19/2022 1:0 0 PM EST 04/19/2022 3:33 PM EST Deana Yarbrough DRILLING AND PRODUCTION SUPERINTENDENT BODY FLUIDS AND STOOLS OR DERABLES Final Result Performing Organization Address [facility] de Phone Number [address] [address] * Hepatitis C antibody, qualitative (07/25/2018 7:56 AM EDT) HCV Negative Negative [facility] Comment: This is a screening test and should be confirmed with molecular testing Blood 07/25/2018 7:56 AM EDT 07/25/2018 8:07 AM EDT William Perez DO LAB BLOOD ORDERABLES Final Resul t Performing Organization Address [facility] de Phone Number [address] [address] from Last 3 Months or Most Recently Relevant to Health Maintenance Insurance MEDICARE PART A & B HEALTH Member Subscriber Plan / Payer (Ef fective 2014-Present) Name:Lakisha Mccarty. Relation to Subscriber:Self Name:Dorothyamena Lakisha Amador. Payer ID:[id number] Group ID:Not on file Type:Medicaid Address: [address] [address] MEDICARE PART A & B HEALTH MEDICARE PART A & B [place]ALTH MEDICARE [place] B [facility] MEDICARE PART A & B [facility] PART [facility] [id number] MEDICARE PART A & B [facility] [id number] Advance Directives For more information, please contact: [phone] (9AM - 5PM [facility], Saturday-Saturday) Documents on File Type Date Recorded Patient Financial Services Consultant Expl anation Legal Guardianship 01/30/2022 10:52 AM Gra nted * Full Code (Presumed) (Latest Code Status on File) Date Activated Date Inactivated Comments 05/26/2018 11:47 PM 06/03/2018 3:23 PM Care Teams Rolloff Driver Relationship Specialty Start Date End Date Ana William MosleyDO 234 [facility] 7 [place] [address] [email or web address] PCP - General 03/12/14 William Perez DO [address] [place] [address] 7 [place] [address] [email or web address] Insurance Assigned Provider 06/01/23 Garret Colon MD [address] [place] [address] [email or web address] Primary Oncologist Medical Oncology 01/26/20 Additional Source Comments The information contained in this document represents components of the legal health record. It is not the complete legal health record.[facility]
--- OUTSIDE RECORDS SUMMARY | 2024-11-27 10:07 | XMS_ITS | Encounter Summary ---
Author Organization [facility] Address [address] [place] [address] Phone Care Team Providers Care Die Maker Trim Name Role Phone William Perez DO Primary Care Provider [phone] William Perez DO Unavailable Garret Colon MD Unavailable [phone] Glenny Cerda VACUUM CLEANER OPERATOR Unavailable [phone] Encounter Details Date Type Department Care Team (Latest Contact Info) Description 09/30/2020 Transcribe Orders [address] [place] [address] Collins Phillips MD [address] [place] [address] [email or web address] Vitamin D deficiency, unspecified (Primary Dx); Encounter for follow-up examination after treatment for malignant neoplasm; Personal history of malignant melanoma of skin; Melanocytic nevus of trunk; Other specified disorders of the skin and subcutaneous tissue Social History Tobacco Use Types Packs/Day Years [...] Description 12/11/2024 10:00 AM EDT Office Visit [facility] [address] [place] [address] William Perez DO 234 [facility] [address] [place] [address] [email or web address] documented as of this encounter Results * 25-OH vitamin D (09/30/2020 10:59 AM EDT) 25 OH VIT D (TOTAL) 34 30 - 60 ng/mL [facility] Blood 09/30/2020 10:5 9 AM EDT 09/30/2020 11:02 AM EDT us Collins Phillips MD LAB BLOOD ORDERABLES Final Re sult [facility] [address] [place] [address] documented in this encounter Visit Diagnoses Diagnosis Vitamin D deficiency, unspecified- Primary Encounter for follow-up examination after treatment for malignant neoplasm Personal history of malignant melanoma of skin Melanocytic nevus of trunk Benign neoplasm of skin of trunk, except scrotum Other specified disorders of the skin and subcutaneous tissue documented in this encounter Additional Health Concerns Infection Onset Date Last Indicated Resolved Time 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 05/30/2018 09/21/2022 1:23 AM EDT CoV-Risk 12/02/2020 12/02/2020 12/12/2020 1:22 AM EDT CoV-Risk 07/13/2021 07/13/2021 07/24/2021 1:22 AM EDT CoV-Presumed 07/26/2021 07/26/2021 08/16/2021 1:23 AM EDT documented as of this encounter Care Teams Die Maker Trim Relationship Specialty Start Date End Date William Perez DO 234 [facility], [address] [place] [address] [email or web address] PCP - General 03/12/14 William Perez DO 234 [facility], [facility] [address] [place] [address] [email or web address] Insurance Assigned Provider 06/01/23 Garret Colon MD 30 [place] [address] [email or web address] Primary Oncologist Medical Oncology 01/26/20 Glenny Cerda FNP [address] [place] [address] [email or web address] Nurse Practitioner Medical Oncology 05/22/22 09/28/24 documented as of this encounter Additional Source Comments The information contained in this document represents components of the legal health record. It is not the complete legal health record.[facility]
--- OUTSIDE RECORDS SUMMARY | 2024-11-27 10:07 | XMS_ITS | Encounter Summary ---
Author Organization [facility] Address [address] [place] [address] [place] [address] Phone Care Team Providers Care Developmental Specialist Name Role Phone William Perez DO Primary Care Provider [phone] William Perez DO Unavailable Garret Colon MD Unavailable [phone] Glenny Cerda WAREHOUSE DISTRIBUTION MANAGER Unavailable [phone] Encounter Details Date Type Department Care Team (Late st Contact Info) Description 11/25/2017 Ancillary Orders Virtual Department [address] [place] [address] Alex Manzano MD [address] [place] [address] [email or web address] History of colon cancer Social History Tobacco Use Types Packs/Day Years [...] 10:00 AM EDT Office Visit [facility] [address] [place] [address] William Perez DO [address] [address] [email or web address] documented as of this encounter Visit Diagnoses Diagnosis History of colon cancer Personal history of malignant neoplasm of large intestine documented in this encounter Additional Health Concerns Infection Onset Date Last Indicated Resolved Time 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 05/30/2018 09/21/2022 1:23 AM EDT CoV-Exposed Comment:Recent close contact 03/07/2020 03/07/2020 03/21/2020 1:24 AM EST CoV-Risk 12/02/2020 12/02/2020 12/12/2020 1:22 AM EDT CoV-Risk 07/13/2021 07/13/2021 07/24/2021 1:22 AM EDT CoV-Presumed 07/26/2021 07/26/2021 08/16/2021 1:23 AM EDT documented as of this encounter Care Teams Developmental Specialist Relationship Specialty Start Date End Date William Perez DO [address] [place] [address] [email or web address] PCP - General 03/12/14 William Perez DO [address] [place] [address] [email or web address] Insurance Assigned Provider 06/01/23 Garret Colon MD [address] [place] [address] [email or web address] Primary Oncologist Medical Oncology 01/26/20 Glenny Cerda FNP [address] [place] [address] [email or web address] Nurse Practitioner Medical Oncology 05/22/22 09/28/24 documented as of this encounter Additional Source Comments The information contained in this document represents components of the legal health record. It is not the complete legal health record.[facility]
--- OUTSIDE RECORDS SUMMARY | 2024-11-27 10:08 | XMS_ITS | Encounter Summary ---
Author Organization [facility] Address [address] [place] [address] Phone Care Team Providers Care Calender Worker Helper Name Role Phone William Perez DO Primary Care Provider [phone] William Perez DO Unavailable Garret Colon MD Unavailable [phone] Glneny Cerda Unavailable Encounter Details Date Type Department Care Team (Late st Contact Info) Description 11/07/[address] [facility] [address] [place] [address] Social History Tobacco Use Types Packs/Day Years [...] Description 12/11/2024 10:00 AM EDT Office Visit [facility] [address] [place] [address] William Perez DO 234 [facility] 7 [place] [address] [email or web address] documented as of [...] documented as of this encounter Care Teams Calender Worker Helper Relationship Specialty Start Date End Date William Perez DO [address] [address] [email or web address] PCP - General 03/12/14 William Perez DO [address] [address] [email or web address] Insurance Assigned Provider 06/01/23 Garret Colon MD [address] [place] [address] [email or web address] Primary Oncologist Medical Oncology 01/26/20 Glenny Cerda FNP [address] [place] [address] [email or web address] Nurse Practitioner Medical Oncology 05/22/22 09/28/24 documented as of this encounter Additional Source Comments The information contained in this document represents components of the legal health record. It is not the complete legal health record.[facility]
--- OUTSIDE RECORDS SUMMARY | 2024-11-27 10:08 | XMS_ITS | Encounter Summary ---
Author Organization [facility] Address [address] [place] [address] Phone Care Team Providers Care Fish And Wildlife Biologist Name Role Phone William Perez DO Primary Care Provider [phone] William Perez DO Unavailable Garret Colon MD Unavailable [phone] Glenny Cerda Unavailable Encounter Details Date Type Department Care Team (Late st Contact Info) Description 11/07/[address] [facility] [address] [place] [address] Social History Tobacco Use Types Packs/Day Years [...] Description 12/11/2024 10:00 AM EDT Office Visit [facility] [address] [place] [address] William Perez DO 234 [facility] 7 [place] [address] [email or web address] documented as of this encounter Visit Diagnoses [...] documented as of this encounter Care Teams Fish And Wildlife Biologist Relationship Specialty Start Date End Date William Perez DO [address] [address] [email or web address] PCP - General 03/12/14 William Perez DO [address] [address] [email or web address] Insurance Assigned Provider 06/01/23 Garret Colon MD [address] [place] [address] [email or web address] Primary Oncologist Medical Oncology 01/26/20 Glenny Cerda FNP [address] [place] [address] [email or web address] Nurse Practitioner Medical Oncology 05/22/22 09/28/24 documented as of this encounter Additional Source Comments The information contained in this document represents components of the legal health record. It is not the complete legal health record.[facility]
--- OUTSIDE RECORDS SUMMARY | 2024-11-27 10:08 | XMS_ITS | Encounter Summary ---
Author Organization [facility] Address [address] [place] [address] [place] [address] Phone Care Team Providers Care Third Helper Name Role Phone William Perez DO Primary Care Provider William Perez DO Unavailable Garret Colon MD Unavailable [phone] Glenny Cerda Unavailable [phone] Encounter Details Date Type Department Care Team (Late st Contact Info) Description 10/26/2019 Procedure Pass [facility], [address] [address] Social History Tobacco Use Types Packs/Day Years [...] Description 12/11/2024 10:00 AM EDT Office Visit [address] [address] William Perez DO [address] [address] [email or web address] documented as of this encounter Visit Diagnoses [...] documented as of this encounter Care Teams Third Helper Relationship Specialty Start Date End Date William Perez DO [address] [place] [address] [email or web address] PCP - General 03/12/14 William Perez DO [address] [place] [address] [email or web address] Insurance Assigned Provider 06/01/23 Garret Colon MD [address] [place] [address] [email or web address] Primary Oncologist Medical Oncology 01/26/20 Glenny Cerda FNP [address] [place] [address] [email or web address] Nurse Practitioner Medical Oncology 05/22/22 09/28/24 documented as of this encounter Additional Source Comments The information contained in this document represents components of the legal health record. It is not the complete legal health record.[facility]
--- OUTSIDE RECORDS SUMMARY | 2024-11-27 10:08 | XMS_ITS | Encounter Summary ---
Author Organization [facility] Address [address] [place] [address] Phone Care Team Providers Care Senior Corporate Accountant Name Role Phone William Perez DO Primary Care Provider [phone] William Perez DO Unavailable Garret Colon MD Unavailable [phone] Glenny Cerad Unavailable Encounter Details Date Type Department Care Team (Late st Contact Info) Description 11/07/2018 Procedure Pass [facility] [address] [place] [address] Social History Tobacco Use Types Packs/Day Years [...] Description 12/11/2024 10:00 AM EDT Office Visit [facility] [address] [place] [address] William Perez DO 234 [facility] 7 [place] [address] [email or web address] documented as of [...] documented as of this encounter Care Teams Senior Corporate Accountant Relationship Specialty Start Date End Date William Perez DO [address] [address] [email or web address] PCP - General 03/12/14 William Perez DO [address] [address] [email or web address] Insurance Assigned Provider 06/01/23 Garret Colon MD [address] [place] [address] [email or web address] Primary Oncologist Medical Oncology 01/26/20 Glenny Cerda FNP [address] [place] [address] [email or web address] Nurse Practitioner Medical Oncology 05/22/22 09/28/24 documented as of this encounter Additional Source Comments The information contained in this document represents components of the legal health record. It is not the complete legal health record.[facility]
--- OUTSIDE RECORDS SUMMARY | 2024-11-27 10:08 | XMS_ITS | Encounter Summary ---
Demographics Address [address] [place] [address] Home Phone Work Phone Mobile Phone Email Address ov Email Address [email or web address] Email Address Preferred Language Urdu Marital Status Single Yarsani Affiliation Unknown Race White Ethnic Group Not or Lati no Author Organization [facility] Address [address] [place] [address] Phone Care Team Providers Care Event Marketing Specialist Name Role Phone William Perez DO Primary Care Provider [phone] William Perez DO Unavailable Garret Colon MD Unavailable [phone] Glenny Cerda Unavailable Encounter Details Date Type Department Care Team (Late Contact Info) Description 12/10/2016 Procedure Pass [facility] [address] [place] [address] Social History Tobacco Use Types Packs/Day Years [...] EDT Office Visit [facility] [address] [place] [address] William Perez DO [address] [address] [email or web address] documented [...] documented as of this encounter Care Teams Event Marketing Specialist Relationship Specialty Start Date End Date William Perez DO [address] [address] [email or web address] PCP - General 03/12/14 William Perez DO [address] [place] [address] [email or web address] Insurance Assigned Provider 06/01/23 Garret Colon MD [address] [place] [address] [email or web address] Primary Oncologist Medical Oncology 01/26/20 Glenny Cerda FNP [address] [place] [address] [email or web address] Nurse Practitioner Medical Oncology 05/22/22 09/28/24 documented as of this encounter Additional Source Comments The information contained in this document represents components of the legal health record. It is not the complete legal health record.[facility]
--- OUTSIDE RECORDS SUMMARY | 2024-11-27 10:08 | XMS_ITS | Encounter Summary ---
Author Organization [facility] [facility] Address [address] [place] [address] [place] [address] Phone Care Team Providers Care Drain Technician Name Role Phone William Perez DO Primary Care Provider William Perez DO Unavailable Garret Colon MD Unavailable [phone] Glenny Cerda Unavailable Encounter Details Date Type Department Care Team (Late st Contact Info) Description 10/26/2019 Procedure Pass [facility], [address] [address] Social History Tobacco Use Types Packs/Day Years [...] 12/11/2024 10:00 AM EDT Office Visit [address] [address] William Perez DO [address] [address] [email or web address] documented as of this encounter Visit Diagnoses [...] documented as of this encounter Care Teams Drain Technician Relationship Specialty Start Date End Date William Perez DO [address] [place] [address] [email or web address] PCP - General 03/12/14 William Perez DO [address] [place] [address] [email or web address] Insurance Assigned Provider 06/01/23 Garret Colon MD [address] [place] [address] [email or web address] Primary Oncologist Medical Oncology 01/26/20 Glenny Cerda FNP [address] [place] [address] [email or web address] Nurse Practitioner Medical Oncology 05/22/22 09/28/24 documented as of this encounter Additional Source Comments The information contained in this document represents components of the legal health record. It is not the complete legal health record.[facility]
--- OUTSIDE RECORDS SUMMARY | 2024-11-27 10:08 | XMS_ITS | Encounter Summary ---
Author Organization [employer] [facility] Address [address] [place] [address] [place] [address] Phone Care Team Providers Care Pulpwood Contractor Name Role Phone William Perez DO Primary Care Provider [phone] William Perez DO Unavailable Garret Colon MD Unavailable [phone] Glenny Cerda Unavailable Encounter Details Date Type Department Care Team (Late st Contact Info) Description 10/13/2019 Procedure Pass [facility] Virtual Department [address] [place] [address] Social History Tobacco Use Types Packs/Day Years [...] Description 12/11/2024 10:00 AM EDT Office Visit [facility] 234 [place] [address] William Perez DO [address] [address] [email or web address] documented as of this encounter Visit Diagnoses [...] documented as of this encounter Care Teams Pulpwood Contractor Relationship Specialty Start Date End Date William Perez DO [address] [place] [address] [email or web address] PCP - General 03/12/14 William Perez DO [address] [place] [address] [email or web address] Insurance Assigned Provider 06/01/23 Garret Colon MD [address] [place] [address] [email or web address] Primary Oncologist Medical Oncology 01/26/20 Glenny Cerda FNP [address] [place] [address] [email or web address] Nurse Practitioner Medical Oncology 05/22/22 09/28/24 documented as of this encounter Additional Source Comments The information contained in this document represents components of the legal health record. It is not the complete legal health record.[facility]
--- OUTSIDE RECORDS SUMMARY | 2024-11-27 10:08 | XMS_ITS | Encounter Summary ---
Author Organization [facility] Address [address] [place] [address] Phone Care Team Providers Care Life Underwriter Name Role Phone William Perez DO Primary Care Provider [phone] William Perez DO Unavailable Garret Colon MD Unavailable [phone] Glenny Cerda Unavailable Encounter Details Date Type Department Care Team (Late Contact Info) Description 12/10/2016 Procedure Pass [facility] [address] [place] [address] Social History Tobacco Use Types Packs/Day Years [...] Description 12/11/2024 10:00 AM EDT Office Visit [facility] 234 [place] [address] William Perez DO [address] [address] [email or web address] documented as of this encounter [...] documented as of this encounter Care Teams Life Underwriter Relationship Specialty Start Date End Date William Perez DO [address] [address] [email or web address] PCP - General 03/12/14 William Perez DO [address] [place] [address] [email or web address] Insurance Assigned Provider 06/01/23 Garret Colon MD [address] [place] [address] [email or web address] Primary Oncologist Medical Oncology 01/26/20 Glenny Cerda FNP [address] [place] [address] [email or web address] Nurse Practitioner Medical Oncology 05/22/22 09/28/24 documented as of this encounter Additional Source Comments The information contained in this document represents components of the legal health record. It is not the complete legal health record.[facility]
--- OUTSIDE RECORDS SUMMARY | 2024-11-27 10:08 | XMS_ITS | Encounter Summary ---
Author Organization [facility] Address [address] [place] [address] Phone Care Team Providers Care Past Due Accounts Clerk Name Role Phone William Perez DO Primary Care Provider [phone] William Perez DO Unavailable Garret Colon MD Unavailable [phone] Glenny Cerda Unavailable Encounter Details Date Type Department Care Team (Late st Contact Info) Description 11/07/2018 Procedure Pass [facility] [address] [place] [address] Social History Tobacco Use Types Packs/Day Years [...] Description 12/11/2024 10:00 AM EDT Office Visit [facility] 234 [place] [address] William Perez DO 234 [facility] 7 [place] [address] [email or web address] documented as of this encounter Visit Diagnoses [...] documented as of this encounter Care Teams Past Due Accounts Clerk Relationship Specialty Start Date End Date William Perez DO [address] [address] [email or web address] PCP - General 03/12/14 William Perez DO [address] [address] [email or web address] Insurance Assigned Provider 06/01/23 Garret Colon MD [address] [place] [address] [email or web address] Primary Oncologist Medical Oncology 01/26/20 Glenny Cerda FNP [address] [place] [address] [email or web address] Nurse Practitioner Medical Oncology 05/22/22 09/28/24 documented as of this encounter Additional Source Comments The information contained in this document represents components of the legal health record. It is not the complete legal health record.[facility]
--- OUTSIDE RECORDS SUMMARY | 2024-11-27 10:08 | XMS_ITS | Encounter Summary ---
Author Organization [facility] Address [address] [place] [address] Phone Care Team Providers Care C.O.D. Audit Clerk Name Role Phone William Perez DO Primary Care Provider [phone] William Perez DO Unavailable Garret Colon MD Unavailable [phone] Glenny Cerda Unavailable Encounter Details Date Type Department Care Team (Late Contact Info) Description 12/10/2016 Procedure Pass [facility] [address] [place] [address] Social History Tobacco Use Types Packs/Day Years [...] Description 12/11/2024 10:00 AM EDT Office Visit [facility] 234 [place] [address] William Perez DO [address] [address] [email or web address] documented as of this encounter Visit Diagnoses [...] documented as of this encounter Care Teams C.O.D. Audit Clerk Relationship Specialty Start Date End Date William Perez DO [address] [address] [email or web address] PCP - General 03/12/14 William Perez DO [address] [place] [address] [email or web address] Insurance Assigned Provider 06/01/23 Garret Colon MD [address] [place] [address] [email or web address] Primary Oncologist Medical Oncology 01/26/20 Glenny Cerda FNP [address] [place] [address] [email or web address] Nurse Practitioner Medical Oncology 05/22/22 09/28/24 documented as of this encounter Additional Source Comments The information contained in this document represents components of the legal health record. It is not the complete legal health record.[facility]
--- OUTSIDE RECORDS SUMMARY | 2024-11-27 10:08 | XMS_ITS | Encounter Summary ---
Author Organization [facility] Address [address] [place] [address] Phone Care Team Providers Care Bruise Trimmer Name Role Phone William Perez DO Primary Care Provider [phone] William Perez DO Unavailable Garret Colon MD Unavailable [phone] Glenny Cerda Unavailable Encounter Details Date Type Department Care Team (Late st Contact Info) Description 11/07/2018 Procedure Pass [facility] [address] [place] [address] Social History Tobacco Use Types Packs/Day Years [...] Description 12/11/2024 10:00 AM EDT Office Visit [facility] 234 [place] [address] William Perez DO 234 [facility] 7 [place] [address] [email or web address] documented as [...] documented as of this encounter Care Teams Bruise Trimmer Relationship Specialty Start Date End Date William Perez DO [address] [address] [email or web address] PCP - General 03/12/14 William Perez DO [address] [address] [email or web address] Insurance Assigned Provider 06/01/23 Garret Colon MD [address] [place] [address] [email or web address] Primary Oncologist Medical Oncology 01/26/20 Glenny Cerda FNP [address] [place] [address] [email or web address] Nurse Practitioner Medical Oncology 05/22/22 09/28/24 documented as of this encounter Additional Source Comments The information contained in this document represents components of the legal health record. It is not the complete legal health record.[facility]
--- OUTSIDE RECORDS SUMMARY | 2024-11-27 10:08 | XMS_ITS | Encounter Summary ---
Author Organization [employer] [facility] Address [address] [place] [address] [place] [address] Phone Care Team Providers Care Pharmacy Retail Support Specialist Name Role Phone William Perez DO Primary Care Provider [phone] William Perez DO Unavailable Garret Colon MD Unavailable [phone] Glenny Cerda Unavailable [phone] Encounter Details Date Type Department Care Team (Late st Contact Info) Description 08/19/2018 Procedure Pass [address] [place] [address] Social History Tobacco Use Types Packs/Day Years [...] Description 12/11/2024 10:00 AM EDT Office Visit [address] [address] William Perez DO [address] [address] [email or web address] documented as of [...] documented as of this encounter Care Teams Pharmacy Retail Support Specialist Relationship Specialty Start Date End Date William Perez DO [address] [place] [address] [email or web address] PCP - General 03/12/14 William Perez DO [address] [place] [address] [email or web address] Insurance Assigned Provider 06/01/23 Garret Colon MD [address] [place] [address] [email or web address] Primary Oncologist Medical Oncology 01/26/20 Glenny Cerda FNP [address] [place] [address] [email or web address] Nurse Practitioner Medical Oncology 05/22/22 09/28/24 documented as of this encounter Additional Source Comments The information contained in this document represents components of the legal health record. It is not the complete legal health record.[facility]
--- OUTSIDE RECORDS SUMMARY | 2024-11-27 10:08 | XMS_ITS | Encounter Summary ---
Author Organization [facility] Address [address] [place] [address] Phone Care Team Providers Care Front Desk Agent Name Role Phone William Perez DO Primary Care Provider [phone] William Perez DO Unavailable Garret Colon MD Unavailable [phone] Glenny Cerda Unavailable [phone] Encounter Details Date Type Department Care Team (Late st Contact Info) Description 02/18/2017 Procedure Pass [facility], Ct Scan - [address] [id number] Social History Tobacco Use Types Packs/Day Years Used Date Smoking Tobacco: Never Smokeless Tobacco: Never Sex and Gender Information Value [...] Description 12/11/2024 10:00 AM EDT Office Visit [facility] 234 [place], [place] [address] William Perez DO 234 [facility], [address] [place], [place] [address] [email or web address] documented as of this encounter Visit Diagnoses [...] documented as of this encounter Care Teams Front Desk Agent Relationship Specialty Start Date End Date William Perez DO [address] [place] [address] 7 [place] [address] [email or web address] PCP - General 03/12/14 William Perez DO [address] [place] [address] 7 [place] [address] [email or web address] Insurance Assigned Provider 06/01/23 Garret Colon MD [address] [place] [address] [email or web address] Primary Oncologist Medical Oncology 01/26/20 Glenny Cerda FNP [address] [place] [address] [email or web address] Nurse Practitioner Medical Oncology 05/22/22 09/28/24 documented as of this encounter Additional Source Comments The information contained in this document represents components of the legal health record. It is not the complete legal health record.[facility]
--- OUTSIDE RECORDS SUMMARY | 2024-11-27 10:08 | XMS_ITS | Encounter Summary ---
Author Organization [facility] Address [address] [place] [address] Phone Care Team Providers Care Card Reader Name Role Phone William Perez DO Primary Care Provider [phone] William Perez DO Unavailable Garret Colon MD Unavailable [phone] Glenny Cerda Unavailable Encounter Details Date Type Department Care Team (Late st Contact Info) Description 11/07/2018 Procedure Pass [facility] [address] [place] [address] Social History Tobacco Use Types Packs/Day Years [...] 12/11/2024 10:00 AM EDT Office Visit [facility] 234 [place] [address] William Perez DO 234 [facility] 7 [place] [address] [email or web address] documented as of [...] documented as of this encounter Care Teams Card Reader Relationship Specialty Start Date End Date William Perez DO [address] [address] [email or web address] PCP - General 03/12/14 William Perez DO [address] [address] [email or web address] Insurance Assigned Provider 06/01/23 Garret Colon MD [address] [place] [address] [email or web address] Primary Oncologist Medical Oncology 01/26/20 Glenny Cerda FNP [address] [place] [address] [email or web address] Nurse Practitioner Medical Oncology 05/22/22 09/28/24 documented as of this encounter Additional Source Comments The information contained in this document represents components of the legal health record. It is not the complete legal health record.[facility]
--- OUTSIDE RECORDS SUMMARY | 2024-11-27 10:08 | XMS_ITS | Encounter Summary ---
Author Organization [employer] [facility] Address [address] [place] [address] Phone Care Team Providers Care Corn Crop Supervisor Name Role Phone William Perez DO Primary Care Provider William Perez DO Unavailable Garret Colon MD Unavailable [phone] Glenny Cerda Unavailable [phone] Encounter Details Date Type Department Care Team (Late st Contact Info) Description 09/10/2024 Procedure Pass [facility], [address] [address] Social History Tobacco Use Types Packs/Day Years [...] Description 12/11/2024 10:00 AM EDT Office Visit [facility] 234 [place] [address] William Perez DO [address] [address] [email or web address] documented as of this encounter Visit Diagnoses Not on filedocumented in this encounter Additional Health Concerns Assessment Noted Time PHQ-2 Depression Total Score: 0 12/10/19 24 9:22 AM EDT documented as of this encounter Care Teams Corn Crop Supervisor Relationship Specialty Start Date End Date William Perez DO [address] [place] [address] PCP - General 03/12/14 William Perez DO [address] [address] Insurance Assigned Provider 06/01/23 Garret Colon MD [address] [place] [address] [email or web address] Primary Oncologist Medical Oncology 01/26/20 Glenny Cerda FNP [address] [place] [address] [email or web address] Nurse Practitioner Medical Oncology 05/22/22 09/28/24 documented as of this encounter Additional Source Comments The information contained in this document represents components of the legal health record. It is not the complete legal health record.[facility]
--- OUTSIDE RECORDS SUMMARY | 2024-11-27 10:08 | XMS_ITS | Encounter Summary ---
Author Organization [employer] [facility] Address [address] [place] [address] [place] [address] Phone Care Team Providers Care Instrumentation Manager Name Role Phone William Perez DO Primary Care Provider [phone] William Perez DO Unavailable Garret Colon MD Unavailable [phone] Glenny Cerda Unavailable Encounter Details Date Type Department Care Team (Late st Contact Info) Description 10/26/2019 Procedure Pass [facility], [address] [address] Social History Tobacco Use Types Packs/Day Years [...] Description 12/11/2024 10:00 AM EDT Office Visit [address] [address] William Perez DO [address] [address] [email or web address] documented as of this encounter Visit Diagnoses [...] documented as of this encounter Care Teams Instrumentation Manager Relationship Specialty Start Date End Date William Perez DO [address] [place] [address] [email or web address] PCP - General 03/12/14 William Perez DO [address] [place] [address] [email or web address] Insurance Assigned Provider 06/01/23 Garret Colon MD [address] [place] [address] [email or web address] Primary Oncologist Medical Oncology 01/26/20 Glenny Cerda FNP [address] [place] [address] [email or web address] Nurse Practitioner Medical Oncology 05/22/22 09/28/24 documented as of this encounter Additional Source Comments The information contained in this document represents components of the legal health record. It is not the complete legal health record.[facility]
--- OUTSIDE RECORDS SUMMARY | 2024-11-27 10:08 | XMS_ITS | Encounter Summary ---
Author Organization [facility] Address [address] [place] [address] Phone Care Team Providers Care Silviculture Forester Name Role Phone William Perez DO Primary Care Provider [phone] William Perez DO Unavailable Garret Colon MD Unavailable [phone] Glenny Cerda Unavailable [phone] Encounter Details Date Type Department Care Team (Late Contact Info) Description 12/10/2016 Procedure Pass [facility] [address] [place] [address] Social History Tobacco Use Types Packs/Day Years [...] AM EDT Office Visit [facility] 234 [place] [address] William Perez DO [address] [address] [email or web address] documented as of this [...] documented as of this encounter Care Teams Silviculture Forester Relationship Specialty Start Date End Date William Perez DO [address] [address] [email or web address] PCP - General 03/12/14 William Perez DO [address] [place] [address] [email or web address] Insurance Assigned Provider 06/01/23 Garret Colon MD [address] [place] [address] [email or web address] Primary Oncologist Medical Oncology 01/26/20 Glenny Cerda FNP [address] [place] [address] [email or web address] Nurse Practitioner Medical Oncology 05/22/22 09/28/24 documented as of this encounter Additional Source Comments The information contained in this document represents components of the legal health record. It is not the complete legal health record.[facility]
--- OUTSIDE RECORDS SUMMARY | 2024-11-27 10:08 | XMS_ITS | Encounter Summary ---
Author Organization [employer] [facility] Address [address] [place] [address] Phone Care Team Providers Care Fermenting Cellar Dropper Name Role Phone William Perez DO Primary Care Provider [phone] William Perez DO Unavailable Garret Colon MD Unavailable [phone] Glenny Cerda Unavailable [phone] Encounter Details Date Type Department Care Team (Late st Contact Info) Description 09/10/2024 Procedure Pass [facility], [address] [address] Social History Tobacco Use Types Packs/Day Years [...] 12/11/2024 10:00 AM EDT Office Visit [facility] 234 [place] [address] William Perez DO [address] [address] [email or web address] documented as of this encounter Visit Diagnoses Not on filedocumented in this encounter Additional Health Concerns Assessment Noted Time PHQ-2 Depression Total Score: 0 12/10/19 24 9:22 AM EDT documented as of this encounter Care Teams Fermenting Cellar Dropper Relationship Specialty Start Date End Date William Perez DO [address] [place] [address] PCP - General 03/12/14 William Perez DO [address] [address] Insurance Assigned Provider 06/01/23 Garret Colon MD [address] [place] [address] [email or web address] Primary Oncologist Medical Oncology 01/26/20 Glenny Cerda FNP [address] [place] [address] [email or web address] Nurse Practitioner Medical Oncology 05/22/22 09/28/24 documented as of this encounter Additional Source Comments The information contained in this document represents components of the legal health record. It is not the complete legal health record.[facility]
--- OUTSIDE RECORDS SUMMARY | 2024-11-27 10:08 | XMS_ITS | Encounter Summary ---
Author Organization [facility] Address [address] [place] [address] [place] [address] Phone Care Team Providers Care Gardener Name Role Phone William Perez DO Primary Care Provider [phone] William Perez DO Unavailable Garret Colon MD Unavailable [phone] Glenny Cerda Unavailable [phone] Encounter Details Date Type Department Care Team (Late st Contact Info) Description 08/19/2018 Procedure Pass [address] [place] [address] Social History Tobacco Use Types Packs/Day Years [...] Description 12/11/2024 10:00 AM EDT Office Visit [address] [address] William Perez DO [address] [address] [email or web address] documented as of this encounter [...] documented as of this encounter Care Teams Gardener Relationship Specialty Start Date End Date William Perez DO [address] [place] [address] [email or web address] PCP - General 03/12/14 William Perez DO [address] [place] [address] [email or web address] Insurance Assigned Provider 06/01/23 Garret Colon MD [address] [place] [address] [email or web address] Primary Oncologist Medical Oncology 01/26/20 Glenny Cerda FNP [address] [place] [address] [email or web address] Nurse Practitioner Medical Oncology 05/22/22 09/28/24 documented as of this encounter Additional Source Comments The information contained in this document represents components of the legal health record. It is not the complete legal health record.[facility]
--- OUTSIDE RECORDS SUMMARY | 2024-11-27 10:08 | XMS_ITS | Encounter Summary ---
Author Organization [employer] [facility] Address [address] [place] [address] [place] [address] Phone Care Team Providers Care Prototype Model Maker Name Role Phone William Perez DO Primary Care Provider [phone] William Perez DO Unavailable Garret Colon MD Unavailable [phone] Glenny Cerda Unavailable Encounter Details Date Type Department Care Team (Late st Contact Info) Description 05/14/2017 Procedure Pass [facility] Endoscopy Admitting Dept Virtual Department [address] [place] [address] Social History Tobacco Use Types Packs/Day Years [...] AM EDT Office Visit [facility] [address] [place] [address] William Perez DO [address] [address] [email or web address] documented as of this encounter Visit Diagnoses [...] documented as of this encounter Care Teams Prototype Model Maker Relationship Specialty Start Date End Date William Perez DO [address] [place] [address] [email or web address] PCP - General 03/12/14 William Perez DO [address] [place] [address] [email or web address] Insurance Assigned Provider 06/01/23 Garret Colon MD [address] [place] [address] [email or web address] Primary Oncologist Medical Oncology 01/26/20 Glenny Cerda FNP [address] [place] [address] [email or web address] Nurse Practitioner Medical Oncology 05/22/22 09/28/24 documented as of this encounter Additional Source Comments The information contained in this document represents components of the legal health record. It is not the complete legal health record.[facility]
--- OUTSIDE RECORDS SUMMARY | 2024-11-27 10:08 | XMS_ITS | Encounter Summary ---
Author Organization [employer] [facility] Address [address] [place] [address] [place] [address] Phone Care Team Providers Care Application Packaging Consultant Name Role Phone William Perez DO Primary Care Provider [phone] William Perez DO Unavailable Garret Colon MD Unavailable [phone] Glenny CerdaP Unavailable [phone] Encounter Details Date Type Department Care Team (Late Contact Info) Description 05/30/2018 Documentation [facility] Infectious Disease Virtual Department 30 [place] [address] Pcp, Not Required [address] [place] [address] Social History Tobacco Use Types Packs/Day Years [...] 12/11/2024 10:00 AM EDT Office Visit [facility] [address] [place] [address] William Perez DO [address] [place] [address] [email or web address] documented as of this encounter Visit Diagnoses [...] documented as of this encounter Care Teams Application Packaging Consultant Relationship Specialty Start Date End Date William Perez DO [address] [place] [address] [email or web address] PCP - General 03/12/14 William Perez DO [address] [place] [address] [email or web address] Insurance Assigned Provider 06/01/23 Garret Colon MD [address] [place] [address] [email or web address] Primary Oncologist Medical Oncology 01/26/20 Glenny Cerda FNP [address] [place] [address] [email or web address] Nurse Practitioner Medical Oncology 05/22/22 09/28/24 documented as of this encounter Additional Source Comments The information contained in this document represents components of the legal health record. It is not the complete legal health record.[facility]
--- OUTSIDE RECORDS SUMMARY | 2024-11-27 10:08 | XMS_ITS | Encounter Summary ---
Author Organization [facility] Address [address] [place] [address] Phone Care Team Providers Care Animal Nutrition Teacher Name Role Phone William Perez DO Primary Care Provider William Perez DO Unavailable Garret Colon MD Unavailable [phone] Glenny Cerda Unavailable [phone] Encounter Details Date Type Department Care Team (Late st Contact Info) Description 11/07/2018 Procedure Pass [facility] [address] [place] [address] Social History Tobacco Use Types Packs/Day Years [...] Description 12/11/2024 10:00 AM EDT Office Visit [facility] [address] [place] [address] William Perez DO 234 [facility] 7 [place] [address] [email or web address] documented as [...] documented as of this encounter Care Teams Animal Nutrition Teacher Relationship Specialty Start Date End Date William Perez DO [address] [address] [email or web address] PCP - General 03/12/14 William Perez DO [address] [address] [email or web address] Insurance Assigned Provider 06/01/23 Garret Colon MD [address] [place] [address] [email or web address] Primary Oncologist Medical Oncology 01/26/20 Glenny Cerda FNP [address] [place] [address] [email or web address] Nurse Practitioner Medical Oncology 05/22/22 09/28/24 documented as of this encounter Additional Source Comments The information contained in this document represents components of the legal health record. It is not the complete legal health record.[facility]
--- OUTSIDE RECORDS SUMMARY | 2024-11-27 10:08 | XMS_ITS | Encounter Summary ---
Author Organization [facility] [facility] Address [address] [place] [address] [place] [address] Phone Care Team Providers Care Publication Director Name Role Phone William Perez DO Primary Care Provider [phone] William Perez DO Unavailable Garret Colon MD Unavailable [phone] Glenny Cerda Unavailable [phone] Encounter Details Date Type Department Care Team (Late st Contact Info) Description 07/16/2017 Procedure Pass [address] [place] [address] Social History Tobacco Use Types Packs/Day Years [...] Description 12/11/2024 10:00 AM EDT Office Visit [address] [address] William Perez DO [address] [address] [email or web address] documented as of this encounter [...] documented as of this encounter Care Teams Publication Director Relationship Specialty Start Date End Date William Perez DO [address] [place] [address] [email or web address] PCP - General 03/12/14 William Perez DO [address] [place] [address] [email or web address] Insurance Assigned Provider 06/01/23 Garret Colon MD [address] [place] [address] [email or web address] Primary Oncologist Medical Oncology 01/26/20 Glenny Cerda FNP [address] [place] [address] [email or web address] Nurse Practitioner Medical Oncology 05/22/22 09/28/24 documented as of this encounter Additional Source Comments The information contained in this document represents components of the legal health record. It is not the complete legal health record.[facility]
--- OUTSIDE RECORDS SUMMARY | 2024-11-27 10:08 | XMS_ITS | Encounter Summary ---
Author Organization [facility] Address [address] [place] [address] Phone Care Team Providers Care Seamstress Fitter Name Role Phone William Perez DO Primary Care Provider [phone] William Perez DO Unavailable Garret Colon MD Unavailable [phone] Glenny Cerda Unavailable [phone] Encounter Details Date Type Department Care Team (Late st Contact Info) Description 11/07/2018 Procedure Pass [facility] [address] [place] [address] Social History Tobacco Use Types Packs/Day Years [...] Description 12/11/2024 10:00 AM EDT Office Visit [facility] 234 [place] [address] William Perez DO 234 [facility] 7 [place] [address] [email or web address] documented as of this encounter Visit Diagnoses [...] documented as of this encounter Care Teams Seamstress Fitter Relationship Specialty Start Date End Date William Perez DO [address] [address] [email or web address] PCP - General 03/12/14 William Perez DO [address] [address] [email or web address] Insurance Assigned Provider 06/01/23 Garret Colon MD [address] [place] [address] [email or web address] Primary Oncologist Medical Oncology 01/26/20 Glenny Cerda FNP [address] [place] [address] [email or web address] Nurse Practitioner Medical Oncology 05/22/22 09/28/24 documented as of this encounter Additional Source Comments The information contained in this document represents components of the legal health record. It is not the complete legal health record.[facility]
--- OUTSIDE RECORDS SUMMARY | 2024-11-27 10:08 | XMS_ITS | Encounter Summary ---
Author Organization [facility] Address [address] [place] [address] Phone Care Team Providers Care Instructor Bridge Name Role Phone William Perez DO Primary Care Provider [phone] William Perez DO Unavailable Garret Colon MD Unavailable [phone] Glenny Cerda Unavailable Encounter Details Date Type Department Care Team (Late Contact Info) Description 12/10/2016 Procedure Pass [facility] [address] [place] [address] Social History Tobacco Use Types Packs/Day Years [...] Description 12/11/2024 10:00 AM EDT Office Visit [facility] 234 [place] [address] William Perez DO [address] [address] [email or web address] documented as [...] documented as of this encounter Care Teams Instructor Bridge Relationship Specialty Start Date End Date William Perez DO [address] [address] [email or web address] PCP - General 03/12/14 William Perez DO [address] [place] [address] [email or web address] Insurance Assigned Provider 06/01/23 Garret Colon MD [address] [place] [address] [email or web address] Primary Oncologist Medical Oncology 01/26/20 Glenny Cerda FNP [address] [place] [address] [email or web address] Nurse Practitioner Medical Oncology 05/22/22 09/28/24 documented as of this encounter Additional Source Comments The information contained in this document represents components of the legal health record. It is not the complete legal health record.[facility]
--- OUTSIDE RECORDS SUMMARY | 2024-11-27 10:08 | XMS_ITS | Encounter Summary ---
Author Organization [facility] Address [address] [place] [address] Phone Care Team Providers Care Maintenance Of Way Supervisor Name Role Phone William Perez DO Primary Care Provider William Perez DO Unavailable Garret Colon MD Unavailable [phone] Glenny Cerda Unavailable Encounter Details Date Type Department Care Team (Late st Contact Info) Description 02/18/2017 Procedure Pass [facility] Ct Scan - [address] [id number] Social History Tobacco Use Types Packs/Day Years [...] Description 12/11/2024 10:00 AM EDT Office Visit [facility] 234 [place], [place] [phone] William Perez DO 234 [facility], [address] [place], [place] [address] [email or web address] documented as [...] documented as of this encounter Care Teams Maintenance Of Way Supervisor Relationship Specialty Start Date End Date William Perez DO [address] [place] [address] 7 [place] [address] [email or web address] PCP - General 03/12/14 William Perez DO [address] [place] [address] 7 [place] [address] [email or web address] Insurance Assigned Provider 06/01/23 Garret Colon MD [address] [place] [address] [email or web address] Primary Oncologist Medical Oncology 01/26/20 Glenny Cerda FNP [address] [place] [address] [email or web address] Nurse Practitioner Medical Oncology 05/22/22 09/28/24 documented as of this encounter Additional Source Comments The information contained in this document represents components of the legal health record. It is not the complete legal health record.[facility]
--- OUTSIDE RECORDS SUMMARY | 2024-11-27 10:08 | XMS_ITS | Encounter Summary ---
Author Organization [employer] [facility] Address [address] [place] [address] [place] [address] Phone Care Team Providers Care Caustic Liquor Maker Name Role Phone William Perez DO Primary Care Provider [phone] William Perez DO Unavailable Garret Colon MD Unavailable [phone] Glenny Cerda Unavailable [phone] Encounter Details Date Type Department Care Team (Late st Contact Info) Description 07/16/2017 Procedure Pass [address] [place] [address] Social History Tobacco Use Types Packs/Day Years [...] 12/11/2024 10:00 AM EDT Office Visit [address] [place] [address] [address] William Perez DO [address] [address] [email or web address] documented as [...] documented as of this encounter Care Teams Caustic Liquor Maker Relationship Specialty Start Date End Date William Perez DO [address] [place] [address] [email or web address] PCP - General 03/12/14 William Perez DO [address] [place] [address] [email or web address] Insurance Assigned Provider 06/01/23 Garret Colon MD [address] [place] [address] [email or web address] Primary Oncologist Medical Oncology 01/26/20 Glenny Cerda FNP [address] [place] [address] [email or web address] Nurse Practitioner Medical Oncology 05/22/22 09/28/24 documented as of this encounter Additional Source Comments The information contained in this document represents components of the legal health record. It is not the complete legal health record.[facility]
== END 2024-11-27 10:51 | disposition home or self-care (01) ==
PROVIDERS: PCP Family Medicine; Visit Provider Nurse Practitioner Family
DX: F84.9 Pervasive developmental disorder, unspecified (principal); Q03.1 Atresia of foramina of Magendie and Luschka; G47.33 Obstructive sleep apnea (adult) (pediatric); R56.9 Unspecified convulsions
CPT/HCPCS: 99213

== ENCOUNTER → 2024-11-27 09:26 | Outpatient (BNVA) | payer MEDICARE, MEDICAID, SELFPAY | PROVIDERS: PCP Family Medicine; Visit Provider Nurse Practitioner Family | DX: G47.33 Obstructive sleep apnea (adult) (pediatric) (principal); F84.9 Pervasive developmental disorder, unspecified; Q03.1 Atresia of foramina of Magendie and Luschka; R56.9 Unspecified convulsions | CPT/HCPCS: 99212 ==